=== PATIENT | female | born 1970 | race Caucasian/White ===

== ENCOUNTER → 2020-04-03 13:20 | Outpatient (BNVA) | payer OTHER, SELFPAY | PROVIDERS: PCP Internal Medicine; Visit Provider Obstetrics & Gynecology | DX: N84.0 Polyp of corpus uteri (principal); N92.1 Excessive and frequent menstruation with irregular cycle; Z98.890 Other specified postprocedural states | CPT/HCPCS: Q3014 ==

== ENCOUNTER 2020-08-14 13:12 | Outpatient (REF) | payer OTHER, SELFPAY ==
--- NOTE | ~2020-08-14 | MM_ITS ---
EXAMINATION: MM SCREENING DIGITAL BREAST TOMOSYNTHESIS, BILATERAL CLINICAL INFORMATION: Screening. Asymptomatic. The lifetime risk of breast cancer based on the Tyrer-Cuzick Model is 7%. COMPARISON: Mammography: 08/09/2019, 08/05/2018, 04/19/2017, 02/26/2016 TECHNIQUE: Digital breast tomosynthesis is performed in both the craniocaudal and mediolateral oblique views along with computer-aided detection (CAD). Synthesized 2D images are generated from the tomosynthesis. FINDINGS: There are scattered areas of fibroglandular density (ACR BI-RADS breast composition Category b). There are no significant masses, abnormal calcifications, or other abnormalities. No significant changes from prior studies. MM/MM tomosynthesis screening BI IMPRESSION: No mammographic evidence of malignancy. ASSESSMENT: BI-RADS 1: Negative RECOMMENDATION: Routine annual mammography screening. This patient's information was entered into a reminder system with a target due date for their next mammogram.
== END 2020-08-14 13:13 | disposition home or self-care (01) ==
LOC: HO.MAMMO 13:12
PROVIDERS: Visit Provider Internal Medicine
DX: Z12.31 Encounter for screening mammogram for malignant neoplasm of breast (principal)
CPT/HCPCS: 77063; 77067

== ENCOUNTER 2020-08-19 11:42 | Outpatient (REF) | payer OTHER, SELFPAY ==
[2020-08-19 13:48] LABS: MANUAL DIFF FLAG NO
[2020-08-19 13:55] LABS: Basophils Percent Auto 0.6 % (0-2); Eosinophils Absolute Auto 0.2 X10*3/uL (0.0-0.4); Eosinophils Percent Auto 2.8 % (0-4); Hematocrit 42.4 % (37-47); Hemoglobin 13.9 g/dl (12.0-16.0); Imm Gran Abs Auto 0.02 X10*3/uL (0.00-0.03); Imm Gran Pct Auto 0.3 % (0.0-0.4); Lymphocytes Absolute Auto 1.8 X10*3/uL (1.2-4.9); Lymphocytes Percent Auto 25.9 % (20-40); Mean Corpuscular HGB Conc 32.8 g/dl (31.0-35.0); Mean Corpuscular Hemoglobin 30.6 pg (27.0-33.0); Mean Corpuscular Volume 93.4 fL (80-98); Mean Platelet Volume 10.7 fL (9.4-12.3); Monocytes Absolute Auto 0.4 X10*3/uL (0.1-1.2); Monocytes Percent Auto 5.1 % (2-11); Neutrophils Absolute Auto 4.7 X10*3/uL (2.0-8.3); Neutrophils Percent Auto 65.3 % (45-73); Platelet Count 350 X10*3/uL (160-400); Red Blood Count 4.54 X10*6/uL (4.20-5.50); Red Cell Distribution Width 12.6 % (11.0-16.0); White Blood Count 7.1 X10*3/uL (4.8-10.8)
[2020-08-19 14:57] LABS: Alanine Aminotransferase 35 U/L (0-31); Albumin Level 4.3 g/dL (3.5-5.0); Alkaline Phosphatase 70 U/L (39-117); Anion Gap 13 (12-20); Aspartate Amino Transferase 22 U/L (5-31); Bilirubin Total 0.3 mg/dL (0.0-1.0); Blood Urea Nitrogen 17 mg/dL (9-16); Calcium 9.5 mg/dL (8.4-10.2); Carbon Dioxide 27 mmol/L (22-29); Chloride 108 mmol/L (96-108); Cholesterol 192 mg/dL; Estimated Glomerular Filt Rate > 60; Glucose Random 98 mg/dL (60-115); HDL Cholesterol 49 mg/dL; LDL Cholesterol Calculated 119 mg/dl; Sodium 143 mmol/L (135-145); Total Protein 7.3 g/dL (6.5-8.0); Triglycerides 120 mg/dL
[2020-08-19 15:04] LABS: Free T4 (Free Thyroxine) 1.28 ng/dL (0.71-1.85); Thyroid Stimulating Hormone 0.87 uIU/mL (0.32-4.0); Vitamin D 25-OH Total 27.9 ng/mL (>30)
[2020-08-23 06:42] LABS: Folate 7.3 ng/mL (> or = 4.0); Vitamin B12 456 pg/mL (200-900)
== END 2020-08-19 11:43 | disposition home or self-care (01) ==
LOC: HO.10HDL 11:42
PROVIDERS: Visit Provider Internal Medicine
DX: E78.00 Pure hypercholesterolemia, unspecified (principal); E03.9 Hypothyroidism, unspecified
CPT/HCPCS: 36415; 80053; 80061; 82306; 82607; 82746; 84439; 84443; 85025

== ENCOUNTER 2020-12-25 09:03 | Outpatient (REF) | payer OTHER, SELFPAY ==
[2020-12-25 10:32] LABS: MANUAL DIFF FLAG NO
[2020-12-25 10:41] LABS: Basophils Percent Auto 0.6 % (0-2); Eosinophils Absolute Auto 0.5 X10*3/uL (0.0-0.4); Hematocrit 41.9 % (37-47); Hemoglobin 13.9 g/dl (12.0-16.0); Imm Gran Abs Auto 0.01 X10*3/uL (0.00-0.03); Imm Gran Pct Auto 0.1 % (0.0-0.4); Lymphocytes Absolute Auto 3.2 X10*3/uL (1.2-4.9); Lymphocytes Percent Auto 45.1 % (20-40); Mean Corpuscular HGB Conc 33.2 g/dl (31.0-35.0); Mean Corpuscular Volume 93.3 fL (80-98); Mean Platelet Volume 10.1 fL (9.4-12.3); Monocytes Absolute Auto 0.5 X10*3/uL (0.1-1.2); Monocytes Percent Auto 7.2 % (2-11); Neutrophils Absolute Auto 2.8 X10*3/uL (2.0-8.3); Platelet Count 304 X10*3/uL (160-400); Red Blood Count 4.49 X10*6/uL (4.20-5.50); Red Cell Distribution Width 12.5 % (11.0-16.0); White Blood Count 7.1 X10*3/uL (4.8-10.8)
[2020-12-25 10:57] LABS: Alanine Aminotransferase 34 U/L (0-31); Albumin Level 4.2 g/dL (3.5-5.0); Alkaline Phosphatase 65 U/L (39-117); Anion Gap 12 (12-20); Aspartate Amino Transferase 25 U/L (5-31); Bilirubin Total 0.5 mg/dL (0.0-1.0); Blood Urea Nitrogen 16 mg/dL (9-16); Calcium 9.4 mg/dL (8.4-10.2); Carbon Dioxide 27 mmol/L (22-29); Chloride 109 mmol/L (96-108); Cholesterol 209 mg/dL; Estimated Glomerular Filt Rate > 60; Glucose Fasting 104 mg/dL (60-99); HDL Cholesterol 46 mg/dL; LDL Cholesterol Calculated 145 mg/dl; Potassium 4.8 mmol/L (3.3-5.1); Sodium 143 mmol/L (135-145); Total Protein 6.9 g/dL (6.5-8.0); Triglycerides 93 mg/dL
[2020-12-25 11:22] LABS: TSH reflex Free T4 0.95 uIU/mL (0.32-4.0)
== END 2020-12-25 09:04 | disposition home or self-care (01) ==
LOC: HO.10HDL 09:03
PROVIDERS: Visit Provider Nurse Practitioner Family
DX: E78.00 Pure hypercholesterolemia, unspecified (principal); E03.9 Hypothyroidism, unspecified
CPT/HCPCS: 36415; 80053; 80061; 84443; 85025

== ENCOUNTER 2021-02-14 13:58 | Outpatient (REF) | payer OTHER, SELFPAY ==
--- NOTE | ~2021-02-14 | XR_ITS ---
EXAMINATION: XR ABDOMEN KUB CLINICAL INDICATION: Abdominal pain. COMPARISON: CT abdomen/pelvis dated 05/25/2016. TECHNIQUE: AP views of the abdomen. FINDINGS: Nonobstructive bowel gas pattern. Mild air and stool throughout the colon. Phleboliths within the pelvis. Right upper quadrant and left midabdomen surgical clips are redemonstrated. No acute osseous abnormality. XR/XR KUB IMPRESSION: Unremarkable examination.
[2021-02-14 14:48] LABS: MANUAL DIFF FLAG NO
[2021-02-14 14:51] LABS: Basophils Percent Auto 0.3 % (0-2); Eosinophils Absolute Auto 0.1 X10*3/uL (0.0-0.4); Eosinophils Percent Auto 1.2 % (0-4); Hematocrit 41.2 % (37-47); Hemoglobin 13.8 g/dl (12.0-16.0); Imm Gran Abs Auto 0.03 X10*3/uL (0.00-0.03); Imm Gran Pct Auto 0.3 % (0.0-0.4); Lymphocytes Absolute Auto 2.3 X10*3/uL (1.2-4.9); Lymphocytes Percent Auto 23.6 % (20-40); Mean Corpuscular HGB Conc 33.5 g/dl (31.0-35.0); Mean Corpuscular Hemoglobin 30.7 pg (27.0-33.0); Mean Corpuscular Volume 91.8 fL (80-98); Mean Platelet Volume 9.8 fL (9.4-12.3); Monocytes Absolute Auto 0.4 X10*3/uL (0.1-1.2); Monocytes Percent Auto 4.6 % (2-11); Neutrophils Absolute Auto 6.8 X10*3/uL (2.0-8.3); Platelet Count 336 X10*3/uL (160-400); Red Blood Count 4.49 X10*6/uL (4.20-5.50); Red Cell Distribution Width 12.7 % (11.0-16.0); White Blood Count 9.7 X10*3/uL (4.8-10.8)
[2021-02-14 15:13] LABS: Alanine Aminotransferase 56 U/L (0-31); Albumin Level 4.6 g/dL (3.5-5.0); Alkaline Phosphatase 67 U/L (39-117); Anion Gap 15 (12-20); Aspartate Amino Transferase 34 U/L (5-31); Blood Urea Nitrogen 13 mg/dL (9-16); Calcium 9.9 mg/dL (8.4-10.2); Carbon Dioxide 25 mmol/L (22-29); Chloride 105 mmol/L (96-108); Estimated Glomerular Filt Rate > 60; Glucose Random 89 mg/dL (60-115); Sodium 140 mmol/L (135-145); Total Protein 7.5 g/dL (6.5-8.0)
[2021-02-14 16:00] LABS: Glucose Urine UA NEG (NEG); Leukocyte Esterase Urine NEG (NEG); Nitrite Urine NEG (NEG); Specific Gravity - Urine <= 1.005 (1.005-1.025); Urine Blood NEG (NEG); Urine Ketones 5 MG/DL (NEG); Urine Protein NEG (NEG-TRACE)
[2021-02-14 16:06] LABS: Appearance Urine CLEAR; Color Urine YELLOW
[2021-02-14 19:47] LABS: CDiff Gene PCR NEGATIVE (Negative)
== END 2021-02-14 13:59 | disposition home or self-care (01) ==
LOC: HO.XRAY 13:58
PROVIDERS: PCP Internal Medicine; Visit Provider Family Medicine
DX: Z00.00 Encounter for general adult medical examination without abnormal findings (principal); R10.9 Unspecified abdominal pain; K52.9 Noninfective gastroenteritis and colitis, unspecified
CPT/HCPCS: 36415; 74018; 80053; 81003; 85025; 87045; 87046; 87493

== ENCOUNTER 2021-03-04 09:16 | Emergency (ER) | payer OTHER, SELFPAY ==
--- NOTE | ~2021-03-04 | CT_ITS ---
EXAMINATION: CT ABDOMEN AND PELVIS WITHOUT CONTRAST CLINICAL INFORMATION: Lower abdominal pain COMPARISON: Previous CT of the abdomen and pelvis April 2016 TECHNIQUE: Multidetector volumetric imaging was performed from the superior aspect of the liver through the pubic symphysis. Sagittal and coronal reformatted images were obtained on the technologist's workstation. This CT examination was performed using dose optimization techniques as appropriate, variously including the following: *Automated exposure control *Adjustment of mA and/or kV according to patient size (this includes techniques or standardized protocols for targeted exams where dose is matched to indication/reason for exam; i.e. extremities or head) *Use of iterative reconstruction technique DLP: 620 mGy-cm FINDINGS: LUNG BASES: The visualized lung bases are unremarkable. LIVER, GALLBLADDER, AND BILIARY TREE: The liver is enlarged and low in attenuation suggestive of fatty infiltration. No focal liver lesion is seen. The gallbladder is been removed. There is no biliary duct dilatation. PANCREAS: Unremarkable. SPLEEN: Unremarkable. ADRENAL GLANDS: Unremarkable. KIDNEYS AND URETERS: The kidneys are normal in size, shape, and attenuation. No hydronephrosis, hydroureter, or calculi seen. No perinephric stranding. BLADDER: Unremarkable. GASTROINTESTINAL TRACT: There is diverticulosis of the colon. There is a long segment of wall thickening of the left colon and sigmoid colon. There is stranding of the surrounding fat and small amount of pericholecystic fluid.. Long segment distribution favors colitis over diverticulitis. There is stranding or edema of the bowel mesentery. There is no evidence of obstruction, perforation or abscess. The small and large bowel are otherwise unremarkable. The appendix is unremarkable. The stomach is unremarkable. ABDOMINAL WALL: There are small umbilical and right inguinal hernias containing fat. LYMPH NODES: Normal. VASCULAR: Unremarkable. PELVIC VISCERA: Unremarkable. OSSEOUS STRUCTURES: Unremarkable. CT/CT abdomen pelvis wo con IMPRESSION: Diverticulosis of the colon. Long segment wall thickening of the left colon and sigmoid colon and stranding of the surrounding fat and mesentery more suggestive of colitis than diverticulitis. Enlarged fatty liver.
[2021-03-04 09:31] VITALS: BP 170/83; PULSE 93; RESP 18; TEMP 36.6; O2SAT 99; BMI 34.4
[2021-03-04 09:48] LABS: MANUAL DIFF FLAG NO
[2021-03-04 09:51] LABS: Basophils Percent Auto 0.4 % (0-2); Eosinophils Absolute Auto 0.1 X10*3/uL (0.0-0.4); Hematocrit 38.8 % (37-47); Hemoglobin 13.3 g/dl (12.0-16.0); Imm Gran Abs Auto 0.03 X10*3/uL (0.00-0.03); Imm Gran Pct Auto 0.3 % (0.0-0.4); Lymphocytes Absolute Auto 2.4 X10*3/uL (1.2-4.9); Lymphocytes Percent Auto 23.7 % (20-40); Mean Corpuscular HGB Conc 34.3 g/dl (31.0-35.0); Mean Corpuscular Hemoglobin 31.1 pg (27.0-33.0); Mean Corpuscular Volume 90.9 fL (80-98); Mean Platelet Volume 9.5 fL (9.4-12.3); Monocytes Absolute Auto 0.6 X10*3/uL (0.1-1.2); Neutrophils Percent Auto 68.6 % (45-73); Platelet Count 383 X10*3/uL (160-400); Red Blood Count 4.27 X10*6/uL (4.20-5.50); Red Cell Distribution Width 12.4 % (11.0-16.0); White Blood Count 10.2 X10*3/uL (4.8-10.8)
[2021-03-04 10:09] LABS: Lipase 34 U/L (8-78)
[2021-03-04 10:10] LABS: Alanine Aminotransferase 23 U/L (0-31); Albumin Level 4.3 g/dL (3.5-5.0); Alkaline Phosphatase 64 U/L (39-117); Anion Gap 13 (12-20); Aspartate Amino Transferase 18 U/L (5-31); Bilirubin Direct 0.2 mg/dL (0.0-0.5); Bilirubin Total 0.6 mg/dL (0.0-1.0); Blood Urea Nitrogen 14 mg/dL (9-16); Calcium 9.7 mg/dL (8.4-10.2); Carbon Dioxide 22 mmol/L (22-29); Chloride 110 mmol/L (96-108); Estimated Glomerular Filt Rate > 60; Glucose Random 115 mg/dL (60-115); Potassium 4.6 mmol/L (3.3-5.1); Sodium 140 mmol/L (135-145); Total Protein 7.3 g/dL (6.5-8.0)
--- NOTE | 2021-03-04 10:54 | ED_ITS ---
HPI - Abdominal Pain General Chief Complaint: Abdominal Pain Stated Complaint: abd & back pain Time Seen by Provider: 03/04/21 10:53 Source: patient Mode of arrival: ambulatory Limitations: no limitations History of Present Illness HPI narrative: 50-YEAR-OLD FEMALE CAME IN FOR EVALUATION OF ABDOMINAL PAIN 50-year-old female came in for evaluation of lower abdominal pain started about 4 weeks ago, pain is intermittent comes and goes described as a dull aching pain mostly localized in the lower abdomen and suprapubic area radiates to both lower back area, sometimes associated with nausea but no vomiting or diarrhea, urinary frequency or dysuria. Related Data Home Medications Medication Instructions Recorded Confirmed levothyroxine 112 mcg tablet 100 mcg PO DAILY tab 04/03/20 09/19/20 ascorbate calcium (vitamin C) 500 500 mg PO DAILY 08/19/20 09/19/20 mg tablet cholecalciferol (vitamin D3) 25 25 mcg PO DAILY 08/19/20 09/19/20 mcg (1,000 unit) capsule cyanocobalamin (vitamin B-12) 100 100 mcg PO DAILY 08/19/20 09/19/20 mcg tablet lactobacillus combination no.8 3 3,000 mmu cells PO DAILY 08/19/20 09/19/20 billion cell capsule (Adult Probiotic) Previous Rx's Medication Instructions Recorded hydrocortisone 2.5 % topical cream 1 appl GA BID-QID PRN #30 g 02/07/21 with perineal applicator (Proctosol HC) metronidazole 500 mg tablet 500 mg PO Q12H 10 Days #20 tab 02/14/21 ciprofloxacin HCl 500 mg tablet 500 mg PO BID #14 tab 03/04/21 (Cipro) metronidazole 500 mg tablet 500 mg PO BID #14 tab 03/04/21 (Flagyl) Allergies Allergy/AdvReac Type Severity Reaction Status Date / Time latex Allergy Unknown Hives Verified 02/14/21 12:20 penicillin V Allergy Unknown oral Verified 02/14/21 12:20 swelling Review of Systems Review of Systems All other systems are reviewed and are negative Constitutional: Reports as per HPI and Reports no additional constitutional complaints Eyes: Reports as per HPI and Reports no additional eye complaints Reports system reviewed and no additional complaints, except as documented Cardiovascular: Reports as per HPI and Reports no additional cardiovascular complaints Respiratory: Reports as per HPI and Reports no additional respiratory complaints Gastrointestinal: Reports as per HPI and Reports no additional gastrointestinal complaints Genitourinary: Reports no additional female genitourinary complaints Musculoskeletal: Reports no additional musculoskeletal complaints Skin/Breast: Reports system reviewed and no additional complaints, except as docu Psychiatric: Reports no additional psychiatric complaints Endocrine: Reports no additional endocrine complaints Hematologic/Lymphatic: Reports no additional hematologic/lymphatic complaints Allergic/Immunologic: Reports no additional allergic/immunologic complaints Reports system reviewed and no additional complaints, except as documented and Reports Abnormal speech present Physical Exam Vital Signs: Vital Signs: Last Vital Signs Temp 98 F 03/04/21 09:31 Pulse 88 03/04/21 11:50 Resp 18 03/04/21 11:50 BP 127/71 03/04/21 11:50 Pulse Ox 98 03/04/21 11:50 Body Mass Index 34.4 Vital signs have been reviewed as appeared to be correct. Blood pressure normal. Heart rate normal. Respiration rate normal. Temperature normal. Oxygen saturation normal. Appearance: Alert. Oriented X3. No acute distress. Head: Normal external exam. Normocephalic. Atraumatic. No Merritt signs noted. No raccoon eyes noted Eyes: PERRLA. EOMI. Conjunctiva and sclera normal. Eyelids normal. ENT: TM's Normal. Pharynx normal. Uvula midline. Moist mucous membranes. No trismus noted. No drooling noted. No muffled voice noted. Neck: Normal inspection. Neck supple. FROM. No adenopathy. Thyroid Normal. No meningeal signs. No neck mass noted. CVS: Normal heart rate and rhythm. Heart sound normal. No murmurs noted. Pulses normal throughout. Respiratory: No respiratory distress. Painless inspiration. Breath sounds normal. No wheezes/rales/rhonchi noted. Chest nontender. No accessory muscle usage noted or decreased air movement noted. Abdomen: Soft and nontender. Bowel sounds normal in all 4 quadrants. No distention noted. No organomegaly noted. No visible injury noted. Back: No CVA tenderness. Full range of motion noted. Skin: Skin warm and dry. Normal skin color. Normal skin turgor. No rashes/lesions/lacerations noted. Extremities: No lower extremity edema. Extremities exhibit normal range of motion. Extremities nontender. Neuro: Oriented X 3. Cranial nerve exam: II-XII are grossly intact No motor deficit. No sensory deficit. Reflexes normal. Course Course Course Narrative: Assessment and plan. 50-year-old female came in for abdominal pain, CT of the abdomen pelvis showed colitis. Will start the patient on Cipro and Flagyl for for 10 days and follow-up with GI. Patient keeps saying that her mom had a colon cancer, patient was instructed to follow up with Dr. fam (patient's GI) to consider colonoscopy. MDM - Abdominal Pain Lab Data Attestation: I reviewed the patient's lab results. Result diagrams: 03/04/21 09:45 03/04/21 09:45 Labs: Lab Results 03/04/21 03/04/21 03/04/21 Range/Units 09:45 09:45 09:45 WBC 10.2 (4.8-10.8) X10*3/uL RBC 4.27 (4.20-5.50) X10*6/uL Hgb 13.3 (12.0-16.0) g/dl Hct 38.8 (37-47) % MCV 90.9 (80-98) fL MCH 31.1 (27.0-33.0) pg MCHC 34.3 (31.0-35.0) g/dl RDW 12.4 (11.0-16.0) % Plt Count 383 (160-400) X10*3/uL MPV 9.5 (9.4-12.3) fL Immature Gran % (Auto) 0.3 (0.0-0.4) % Neut % (Auto) 68.6 (45-73) % Lymph % (Auto) 23.7 (20-40) % [place] % (Auto) 6.0 (2-11) % Eos % (Auto) 1.0 (0-4) % Baso % (Auto) 0.4 (0-2) % Lymph # (Auto) 2.4 (1.2-4.9) X10*3/uL [place] # (Auto) 0.6 (0.1-1.2) X10*3/uL Eos # (Auto) 0.1 (0.0-0.4) X10*3/uL Baso # (Auto) 0.0 (0.0-0.2) X10*3/uL Abs Immat Gran (auto) 0.03 (0.00-0.03) X10*3/uL Absolute Neuts (auto) 7.0 (2.0-8.3) X10*3/uL Absolute Nucleated RBC 0.000 (0.0-0.012) X10*3/uL Nucleated RBC % (auto) 0.0 (0.0-0.2) /100WBC Sodium 140 (135-145) mmol/L Potassium 4.6 (3.3-5.1) mmol/L Chloride 110 H (96-108) mmol/L Carbon Dioxide 22 (22-29) mmol/L Anion Gap 13 (12-20) BUN 14 (9-16) mg/dL Creatinine 0.78 (0.5-1.4) mg/dL Estim Creat Clear Calc 84.0 Estimated GFR > 60 Random Glucose 115 (60-115) mg/dL Calcium 9.7 (8.4-10.2) mg/dL Total Bilirubin 0.6 (0.0-1.0) mg/dL Direct Bilirubin 0.2 (0.0-0.5) mg/dL AST 18 D (5-31) U/L ALT 23 (0-31) U/L Alkaline Phosphatase 64 (39-117) U/L Total Protein 7.3 (6.5-8.0) g/dL Albumin 4.3 (3.5-5.0) g/dL Lipase 34 (8-78) U/L Urine Color Urine Appearance Urine pH (5.0-8.0) Ur Specific [place] (1.005-1.025) Urine Protein (NEG-TRACE) MG/DL Urine Glucose (UA) (NEG) MG/DL Urine Ketones (NEG) MG/DL Urine Blood (NEG) Urine Nitrite (NEG) Ur Leukocyte Esterase (NEG) Urine RBC (0) /HPF Urine WBC (0-4) /HPF Ur Squamous Epith Cells /LPF Urine Bacteria /LPF Urine Mucus /LPF Urine Test (NEGATIVE) 03/04/21 03/04/21 Range/Units 11:30 11:30 WBC (4.8-10.8) X10*3/uL RBC (4.20-5.50) X10*6/uL Hgb (12.0-16.0) g/dl Hct (37-47) % MCV (80-98) fL MCH (27.0-33.0) pg MCHC (31.0-35.0) g/dl RDW (11.0-16.0) % Plt Count (160-400) X10*3/uL MPV (9.4-12.3) fL Immature Gran % (Auto) (0.0-0.4) % Neut % (Auto) (45-73) % Lymph % (Auto) (20-40) % [place] % (Auto) (2-11) % Eos % (Auto) (0-4) % Baso % (Auto) (0-2) % Lymph # (Auto) (1.2-4.9) X10*3/uL [place] # (Auto) (0.1-1.2) X10*3/uL Eos # (Auto) (0.0-0.4) X10*3/uL Baso # (Auto) (0.0-0.2) X10*3/uL Abs Immat Gran (auto) (0.00-0.03) X10*3/uL Absolute Neuts (auto) (2.0-8.3) X10*3/uL Absolute Nucleated RBC (0.0-0.012) X10*3/uL Nucleated RBC % (auto) (0.0-0.2) /100WBC Sodium (135-145) mmol/L Potassium (3.3-5.1) mmol/L Chloride (96-108) mmol/L Carbon Dioxide (22-29) mmol/L Anion Gap (12-20) BUN (9-16) mg/dL Creatinine (0.5-1.4) mg/dL Estim Creat Clear Calc Estimated GFR Random Glucose (60-115) mg/dL Calcium (8.4-10.2) mg/dL Total Bilirubin (0.0-1.0) mg/dL Direct Bilirubin (0.0-0.5) mg/dL AST (5-31) U/L ALT (0-31) U/L Alkaline Phosphatase (39-117) U/L Total Protein (6.5-8.0) g/dL Albumin (3.5-5.0) g/dL Lipase (8-78) U/L Urine Color YELLOW Urine Appearance CLEAR Urine pH 6.0 (5.0-8.0) Ur Specific [place] 1.020 (1.005-1.025) Urine Protein NEG (NEG-TRACE) MG/DL Urine Glucose (UA) NEG (NEG) MG/DL Urine Ketones NEG (NEG) MG/DL Urine Blood TRACE (NEG) Urine Nitrite NEG (NEG) Ur Leukocyte Esterase NEG (NEG) Urine RBC 1-4 (0) /HPF Urine WBC 0 (0-4) /HPF Ur Squamous Epith Cells 1+ /LPF Urine Bacteria NONE /LPF Urine Mucus 2+ /LPF Urine Test NEGATIVE (NEGATIVE) Imaging Data CT abdomen been: Radiologist's impression: Diverticulosis of the colon. Long segment wall thickening of the left colon and sigmoid colon and stranding of the surrounding fat and mesentery more suggestive of colitis than diverticulitis. Enlarged fatty liver. Discharge Plan Discharge Clinical Impression: Abdominal pain, Colitis Patient Disposition: Home, Self-Care Instructions: Colitis (ED) Prescriptions: New ciprofloxacin HCl [Cipro] 500 mg tablet 500 mg PO BID Qty: 14 RF: 0 metronidazole [Flagyl] 500 mg tablet 500 mg PO BID Qty: 14 RF: 0 No Action hydrocortisone [Proctosol HC] 2.5 % cream with perineal applicator 1 appl GA BID-QID PRN (Reason: hemorrhoids) Qty: 30 RF: 0 cyanocobalamin (vitamin B-12) 100 mcg tablet 100 mcg PO DAILY RF: 0 cholecalciferol (vitamin D3) 25 mcg (1,000 unit) capsule 25 mcg PO DAILY RF: 0 ascorbate calcium (vitamin C) 500 mg tablet 500 mg PO DAILY RF: 0 Adult Probiotic 3 billion cell capsule 3,000 mmu cells PO DAILY RF: 0 metronidazole 500 mg tablet 500 mg PO Q12H 10 Days Qty: 20 RF: 0 levothyroxine 112 mcg tablet 100 mcg PO DAILY RF: 0 Referrals: Po,Karma Austin MD [Primary Care Provider] - 2 days Walter James [Physician] - 2 days [facility] Past Medical History Medical History Anxiety and depression Chest congestion Chest pain on respiration Cholelithiasis Endometrial polyp Finger dislocation Finger dislocation Finger strain Hypercholesterolemia Hypothyroidism Insomnia Obesity (BMI 30-39.9) Osteoarthritis Vitamin D deficiency Surgical History Hx laparoscopic cholecystectomy Family History Family History Mother Colon cancer Lung cancer Father Medical history unknown Paternal Aunt Breast cancer Daughter No problems noted. Daughter No problems noted. Son No problems noted. Son No problems noted. Son No problems noted. Son No problems noted. Son No problems noted. Social History Social History Alcohol intake: current Alcohol intake frequency: holidays/special occasions only Patient Tobacco Use Status: Former Tobacco user Tobacco use type: Cigarette e-Cigarette/Vaping Use: Never Used Second Hand Smoke Exposure: No Use of substances other than those prescribed or required for medical reasons: No Advance Directives: No Advance Directives Information Provided: No Patient : No service: No Current occupational status: employed Sexual orientation: Straight/Heterosexual Gender identity: Female
--- NOTE | 2021-03-04 11:39 | PC.NURSE ---
PT ALERT AND ORIENTED, SKIN PWD, RESPIRATIONS EVEN AND UNLABORED, PT REPORTS LOWER ABD PAIN THAT RADIATES ALL THE WAY AROUND TO THE BACK, WITH SOME NAUSEA, PT STATES THIS HAS BEEN HAPPENING SINCE FEBRUARY 12, SOMETIMES HAS DIARRHEA/CONSTIPATION
[2021-03-04 11:41] LABS: Appearance Urine CLEAR; Color Urine YELLOW; Glucose Urine UA NEG (NEG); Leukocyte Esterase Urine NEG (NEG); Nitrite Urine NEG (NEG); UACC Culture Trigger NO; Urine Blood TRACE (NEG); Urine Ketones NEG (NEG); Urine Protein NEG (NEG-TRACE)
[2021-03-04 11:50] VITALS: BP 127/71; PULSE 88; RESP 18; O2SAT 98
[2021-03-04 11:51] LABS: Mucus Urine 2+ /LPF; Squamous Epithelial Cell Urine 1+ /LPF; WBC Urine 0 /HPF (0-4)
[2021-03-04 11:59] LABS: UPreg QC Valid YES; Urine Pregnancy NEGATIVE (NEGATIVE)
[2021-03-04] MEDS: Ondansetron ODT 4 MG TAB.RAPDIS TRANSLINGU (12:16)
== END 2021-03-04 13:14 | disposition home or self-care (01) ==
PROVIDERS: Emergency Provider Emergency Medicine; PCP Internal Medicine
DX: K52.9 Noninfective gastroenteritis and colitis, unspecified (principal); R10.9 Unspecified abdominal pain
CPT/HCPCS: 36415; 74176; 80048; 80076; 81001; 81025; 83690; 85025; 99284

== ENCOUNTER 2021-03-12 17:17 | Outpatient (REF) | payer OTHER, SELFPAY ==
[2021-03-12 17:59] LABS: MANUAL DIFF FLAG NO
[2021-03-12 18:06] LABS: Basophils Absolute Auto 0.1 X10*3/uL (0.0-0.2); Basophils Percent Auto 0.6 % (0-2); Eosinophils Absolute Auto 0.2 X10*3/uL (0.0-0.4); Eosinophils Percent Auto 2.5 % (0-4); Hematocrit 39.9 % (37-47); Hemoglobin 13.4 g/dl (12.0-16.0); Imm Gran Abs Auto 0.04 X10*3/uL (0.00-0.03); Imm Gran Pct Auto 0.4 % (0.0-0.4); Lymphocytes Absolute Auto 3.3 X10*3/uL (1.2-4.9); Lymphocytes Percent Auto 34.2 % (20-40); Mean Corpuscular HGB Conc 33.6 g/dl (31.0-35.0); Mean Corpuscular Hemoglobin 30.9 pg (27.0-33.0); Mean Corpuscular Volume 92.1 fL (80-98); Mean Platelet Volume 9.8 fL (9.4-12.3); Monocytes Absolute Auto 0.6 X10*3/uL (0.1-1.2); Neutrophils Absolute Auto 5.4 X10*3/uL (2.0-8.3); Neutrophils Percent Auto 56.3 % (45-73); Platelet Count 477 X10*3/uL (160-400); Red Blood Count 4.33 X10*6/uL (4.20-5.50); Red Cell Distribution Width 12.3 % (11.0-16.0); White Blood Count 9.6 X10*3/uL (4.8-10.8)
[2021-03-12 18:24] LABS: C Reactive Protein 1.91 mg/dL (< or = 0.50)
[2021-03-12 18:53] LABS: Erythrocyte Sedimentation Rate 60 MM/HR (0-20)
== END 2021-03-12 17:18 | disposition home or self-care (01) ==
LOC: HO.LAB 17:17
PROVIDERS: PCP Internal Medicine; Visit Provider Internal Medicine
DX: R19.7 Diarrhea, unspecified (principal)
CPT/HCPCS: 36415; 85025; 85652; 86140

== ENCOUNTER 2021-03-14 11:27 | Day surgery (SDC) | payer OTHER, SELFPAY ==
[2021-03-14 12:13] VITALS: BP 126/77; PULSE 85; RESP 16; TEMP 36.6; O2SAT 97; BMI 33.6
--- NOTE | 2021-03-14 12:49 | HO.ANESPROP2 ---
[facility] Active Problems Active Problems: All Active Problems (Updated 03/04/21 @ 12:57 by Keron Gordillo MD) Metrorrhagia (Acute) Annual physical exam (Acute) Gall bladder stones (Acute) Impaired fasting blood sugar (Acute) Constipation (Acute) Hemorrhoid (Acute) Abdominal pain (Acute) Colitis (Acute) Finger dislocation (Acute) Finger dislocation (Acute) Chest congestion (Acute) Chest pain on respiration (Acute) Finger strain (Acute) Anxiety and depression (Acute) Hypercholesterolemia (Acute) Obesity (BMI 30-39.9) (Acute) Hypothyroidism (Acute) Past Medical History Medical History (Updated 03/04/21 @ 12:57 by Keron Gordillo MD) Anxiety and depression Chest congestion Chest pain on respiration Cholelithiasis Endometrial polyp Finger dislocation Finger dislocation Finger strain Hypercholesterolemia Hypothyroidism Insomnia Obesity (BMI 30-39.9) Osteoarthritis Vitamin D deficiency Family History Family History Mother Colon cancer Lung cancer Father Medical history unknown Paternal Aunt Breast cancer Daughter No problems noted. Daughter No problems noted. Son No problems noted. Son No problems noted. Son No problems noted. Son No problems noted. Son No problems noted. Family history of problems with anesthesia: No Surgical History Surgical History (Updated 03/13/21 @ 09:25 by Stephani Vargas RN) History of ERCP Hx laparoscopic cholecystectomy Hx of colonoscopy History of Problems with Anesthesia: No Social History Social History Alcohol intake: current Alcohol intake frequency: holidays/special occasions only Patient Tobacco Use Status: Former Tobacco user Tobacco use type: Cigarette e-Cigarette/Vaping Use: Never Used Second Hand Smoke Exposure: No Use of substances other than those prescribed or required for medical reasons: Yes Substance Use Type Other:: gummies Substance Use Frequency: Occasionally Are you DNR?: No Advance Directives: No Advance Directives Information Provided: Yes service: No Current occupational status: employed Sexual orientation: Straight/Heterosexual Gender identity: Female Meds Allergies Allergy/AdvReac Type Severity Reaction Status Date / Time latex Allergy Unknown Hives Verified 02/14/21 12:20 penicillin V Allergy Unknown oral Verified 02/14/21 12:20 swelling Active Medications: Current Medications Sodium Biphosphate/Sodium Phosphate (Sodium Phosphate,Will-Dibasic 133 Ml Enema) 133 ml IN ONCE PRN PRN Reason: Poor Colonoscopy Prep Results Home Medications Medication Instructions Recorded Confirmed Last Taken Type ascorbate calcium (vitamin C) 500 500 mg PO DAILY 08/19/20 09/19/20 Unknown History mg tablet cholecalciferol (vitamin D3) 25 25 mcg PO DAILY 08/19/20 09/19/20 Unknown History mcg (1,000 unit) capsule cyanocobalamin (vitamin B-12) 100 100 mcg PO DAILY 08/19/20 09/19/20 Unknown History mcg tablet lactobacillus combination no.8 3 3,000 mmu cells PO DAILY 08/19/20 09/19/20 Unknown History billion cell capsule (Adult Probiotic) Exam Exam Date and Time: March 14, 2021 1249 Height,Weight and Vital Signs: Height 5 ft 0.5 in Weight 79.379 kg Last Vital Signs Temp 97.8 F 03/14/21 12:13 Pulse 85 03/14/21 12:13 Resp 16 03/14/21 12:13 BP 126/77 03/14/21 12:13 Pulse Ox 97 03/14/21 12:13 Airway Mallampati Class: II TM Dist: >3cm Neck ROM: Full Heart: rrr Lungs: cta Assessment and Plan Assessment Anesthesia Assessment: Anesthesia Plan Discussed and Chart Reviewed Final Anesthetic Review Family History of Problems with Anesthesia: No History of Problems with Anesthesia: No NPO: Yes ASA Class: II Final Preanesthetic Review: No Changes in Pt Med Stat, Meds/Allgs Chart Reviewed and Consent Obtained/Reviewed Patient Risk: Intermediate Procedure Risk: Intermediate Anesthetic Plan Anesthetic Plan: MAC: Disposition: Standard PACU
[2021-03-14] MEDS: Lactated Ringers 1,000 ML 50 ML IVCONT (12:56)
[2021-03-14 14:03] VITALS: BP 135/76; PULSE 81; RESP 16; TEMP 36.2; O2SAT 97
[2021-03-14 14:18] VITALS: BP 140/58; PULSE 75; RESP 16; TEMP 36.2; O2SAT 97
--- NOTE | 2021-03-14 14:21 | PM.OP ---
Brief Operative Note Date of Service: 03/14/21 Pre-op diagnosis: Diarrhea, abnormal CT of colon, R/O colitis Post-op diagnosis: other (Same, incomplete colonoscopy to 20cm) Procedure: Colonoscopy to 20cm with rectal biopsies Surgeon: Walter James Anesthesia: MAC Was an [facility] used for this Procedure?: No Estimated blood loss (mL): 10.0 Pathology: other (A. Rectal biopsies) Condition: stable Disposition: PACU
[2021-03-14 14:32] VITALS: BP 125/67; PULSE 81; RESP 16; TEMP 36.2; O2SAT 98
--- NOTE | 2021-03-14 18:30 | OP_ITS ---
SURGEON: Walter James MD INDICATIONS: The patient presents for evaluation of diarrhea, abnormal CT scan of colon, and left-sided abdominal discomfort. Full consent has been obtained from her for this, including risks of bleeding and perforation. PREOPERATIVE DIAGNOSIS: POSTOPERATIVE DIAGNOSIS: PROCEDURE PERFORMED: Colonoscopy to 20 cm with biopsy. ESTIMATED BLOOD LOSS: COMPLICATIONS: ANESTHESIA: Monitored anesthesia care. ASSISTANTS: SPECIMENS: PREOPERATIVE DIAGNOSES: Diarrhea, abnormal CT scan of colon, rule out colitis. POSTOPERATIVE DIAGNOSES: Diarrhea, abnormal CT scan of colon, rule out colitis, incomplete exam to 20 cm with inability to get good visualization of the sigmoid colon. Poor anal sphincter tone with some hemorrhoids. DESCRIPTION OF PROCEDURE: The patient was placed in the left lateral decubitus position. The digital rectal exam revealed poor sphincter tone with some external hemorrhoids. The Olympus video pediatric colonoscope was entered into the rectum and advanced to 20 cm. The rectal and very distal sigmoid colon did appear to be congested, but the overlying mucosa appeared normal. It appeared edematous and somewhat friable. I was unable to get past 20 cm, although at times, I was briefly able to visualize the lumen with some liquid stool coming from it. There was no mass nor ulceration. Advancement of the scope trying to get past 20 cm led to some looping of the scope. Therefore, attempts at getting past this area and into the sigmoid colon were unsuccessful. In the rectum, the scope was retroflexed visualizing some internal hemorrhoids. The scope was straightened. Biopsies were obtained from the rectal mucosa, although again that appeared to be fairly normal other than some edema and some friability. Again, her sphincter tone was quite lax. There was some bleeding initially from the perianal area, but this subsequently stopped. The scope was withdrawn from the patient. She tolerated the procedure well and was returned to recovery area in stable condition. IMPRESSION: 1. Incomplete colonoscopy to 20 cm. 2. Internal and external hemorrhoids. 3. Poor rectal sphincter tone. PLAN: Given her symptomatology, the CT scan findings of a long segment of what appeared to be inflamed colon on the left side, a sedimentation rate of 60, elevated C-reactive protein of 1.9, and a normal CBC but with a platelet count of 477,000, I do suspect this reflects some underlying active inflammatory bowel disease given that she has now had the symptoms for well over 1 month and stool specimens were negative for C&S and C. diff.. Since things are so active from a symptomatic standpoint, I shall empirically place her on a course of prednisone 40mg QD with a 5 mg per week tapering regimen. I'm aware that this is not ideal since we have not made a definitive diagnosis by endoscopic visualization or biopsy. However, at this point given her symptoms and the clinical history, I think it would be reasonable to do that and then possibly try to have her undergo a repeat colonoscopy when perhaps the inflammatory process has diminished on the steroids and that would allow advancement of the scope. I shall hold off on putting her on mesalamine for the time being. She has been advised to call or go to the ER if she develops any increasing pain, bleeding, or other symptoms such as fever or vomiting. This has all been discussed with the patient and her in detail. I will plan to see her again within 1 or 2 weeks to see how she is doing and then possibly reschedule a colonoscopy at that point if we think we would have better success. MD AMARI Rodriguez/EVA / [id number]
== END 2021-03-14 15:12 | disposition home or self-care (01) ==
PROVIDERS: PCP Internal Medicine; Visit Provider Internal Medicine
PROC: 0DJD8ZZ Inspection of Lower Intestinal Tract, Via Natural or Artificial Opening Endoscopic (ICD-10-PCS; CPT 45378; principal; 2021-03-14 12:30)
DX: R10.9 Unspecified abdominal pain (principal); R19.7 Diarrhea, unspecified; K62.89 Other specified diseases of anus and rectum; K64.4 Residual hemorrhoidal skin tags; L64.8 Other androgenic alopecia; E03.9 Hypothyroidism, unspecified; Z79.899 Other long term (current) drug therapy; Z88.0 Allergy status to penicillin; Z91.040 Latex allergy status; Z90.49 Acquired absence of other specified parts of digestive tract; Z87.891 Personal history of nicotine dependence
CPT/HCPCS: 45331; 88305

== ENCOUNTER 2021-03-18 11:07 | Inpatient (IN) | payer OTHER, SELFPAY ==
--- NOTE | ~2021-03-18 | XR_ITS ---
EXAMINATION: XR ABDOMEN KUB CLINICAL INDICATION: Abdominal pain COMPARISON: None TECHNIQUE: AP view of the abdomen. FINDINGS: Moderate volume of stool in the colon with most of the stool in the right colon. Very little stool in the left colon. No abnormally dilated bowel loop. Nonobstructive bowel pattern. Surgical clips right upper quadrant of abdomen. No radiopaque urinary calculus. There are calcified phleboliths in the lower right pelvis. XR/XR KUB IMPRESSION: No acute abnormality.
--- NOTE | ~2021-03-18 | CT_ITS ---
EXAMINATION: CT ABDOMEN AND PELVIS WITH CONTRAST CLINICAL INFORMATION: Diffuse abdominal pain and rectal bleeding. Recent colonoscopy. COMPARISON: Previous CT of the abdomen and pelvis 03/04/2021 TECHNIQUE: Multidetector volumetric images were obtained from the superior aspect of the liver through the pubic symphysis following administration 85 mL of Omnipaque 350 intravenous contrast. Sagittal and coronal reformatted images were obtained on the technologist's workstation. Oral contrast: Yes This CT examination was performed using dose optimization techniques as appropriate, variously including the following: *Automated exposure control *Adjustment of mA and/or kV according to patient size (this includes techniques or standardized protocols for targeted exams where dose is matched to indication/reason for exam; i.e. extremities or head) *Use of iterative reconstruction technique DLP: 671 mGy-cm FINDINGS: LUNG BASES: The visualized lung bases are unremarkable. LIVER, GALLBLADDER, AND BILIARY TREE: The liver is low in attenuation suggestive of fatty infiltration. Liver is otherwise unremarkable. The gallbladder is been removed. There is no biliary duct dilatation. PANCREAS: Unremarkable. SPLEEN: Unremarkable. ADRENAL GLANDS: Unremarkable. KIDNEYS AND URETERS: The kidneys are normal in size, shape, and attenuation. No hydronephrosis, hydroureter, or calculi seen. No perinephric stranding. BLADDER: Unremarkable. GASTROINTESTINAL TRACT: There is diverticulosis of the colon. There is marked wall thickening and edema of the left colon and sigmoid colon. There is stranding of the surrounding fat. Long segment distribution is suggestive of colitis than diverticulitis. No evidence of obstruction, perforation or abscess is seen. The appendix is normal. The stomach is normal. ABDOMINAL WALL: There is a small right inguinal hernia containing fat. There is an umbilical hernia containing fat. LYMPH NODES: Normal. VASCULAR: Unremarkable. PELVIC VISCERA: Unremarkable. OSSEOUS STRUCTURES: Unremarkable. CT/CT abdomen pelvis w con IMPRESSION: Severe colitis of the distal colon. This does not appear appreciably changed from 03/04/2021 exam.
[2021-03-18 11:16] VITALS: BP 155/74; PULSE 90; RESP 18; TEMP 36.8; O2SAT 98; BMI 33.0
[2021-03-18 12:05] LABS: Hematocrit 38.9 % (37-47); Hemoglobin 13.3 g/dl (12.0-16.0); Mean Corpuscular HGB Conc 34.2 g/dl (31.0-35.0); Mean Corpuscular Hemoglobin 30.9 pg (27.0-33.0); Mean Corpuscular Volume 90.5 fL (80-98); Mean Platelet Volume 9.4 fL (9.4-12.3); Platelet Count 507 X10*3/uL (160-400); Red Cell Distribution Width 12.1 % (11.0-16.0); White Blood Count 17.9 X10*3/uL (4.8-10.8)
[2021-03-18 12:19] LABS: Anion Gap 14 (12-20); Blood Urea Nitrogen 18 mg/dL (9-16); Calcium 9.7 mg/dL (8.4-10.2); Carbon Dioxide 24 mmol/L (22-29); Chloride 106 mmol/L (96-108); Creatinine Clr Calc Pharmacy 75.6; Estimated Glomerular Filt Rate > 60; Glucose Random 111 mg/dL (60-115); Sodium 140 mmol/L (135-145)
--- NOTE | 2021-03-18 12:37 | ED.ABDPAIN ---
HPI - Abdominal Pain General Chief Complaint: Abdominal Pain Stated Complaint: abd pain Time Seen by Provider: 03/18/21 12:14 History of Present Illness HPI narrative: 51-year-old female with a past medical history of anxiety, depression, cholelithiasis, hyperlipidemia, hypothyroid, insomnia, vitamin-D deficiency, s/p recent Dx of colitis on 03/04 in our ED & colonoscopy performed on Wednesday 03/14 currently on prednisone outpatient, presenting to the ED complaining of diffuse generalized abdominal pain/bloating, nausea, and 1st BM since colonoscopy today. Reports 1 pink tinged BM. Denies fever, chills, vomiting, diarrhea, dysuria/hematuria, melena MD elicited complaint: abdominal pain Related Data Home Medications Medication Instructions Recorded Confirmed ascorbate calcium (vitamin C) 500 500 mg PO DAILY 08/19/20 09/19/20 mg tablet cholecalciferol (vitamin D3) 25 25 mcg PO DAILY 08/19/20 09/19/20 mcg (1,000 unit) capsule cyanocobalamin (vitamin B-12) 100 100 mcg PO DAILY 08/19/20 09/19/20 mcg tablet lactobacillus combination no.8 3 3,000 mmu cells PO DAILY 08/19/20 09/19/20 billion cell capsule (Adult Probiotic) Previous Rx's Medication Instructions Recorded hydrocortisone 2.5 % topical cream 1 appl MT BID-QID PRN #30 g 02/07/21 with perineal applicator (Proctosol HC) levothyroxine 100 mcg tablet 100 mcg PO DAILY 90 Days #90 tab 03/12/21 Allergies Allergy/AdvReac Type Severity Reaction Status Date / Time latex Allergy Unknown Hives Verified 02/14/21 12:20 penicillin V Allergy Unknown oral Verified 02/14/21 12:20 swelling Review of Systems Review of Systems Constitutional: No Fever, No Chills, No Fatigue, No Malaise ENT/Mouth: No Hearing loss, No Ear Pain, No Hoarseness, No sore throat Eyes: No Eye Pain, No Swelling, No Discharge, No Vision Changes Cardiovascular: No Chest Pain, No SOB, No Edema, No Palpitations Respiratory: No Cough, No Dyspnea Gastrointestinal: + Nausea, No Vomiting, No Diarrhea, No Constipation, + Abdominal pain, + pink tinged BM, No Melena Genitourinary: No Dysuria, No Urinary Frequency, No Hematuria,No Urgency, No Flank Pain Musculoskeletal: No joint pain, No Myalgias, No Joint Swelling Skin: No Skin Lesions, No rash Neuro: No Weakness, No Numbness, No Dizziness, No Headache Yes all other systems are reviewed and are negative Physical Exam Vital Signs: Vital Signs: Last Vital Signs Temp 98.3 F 03/18/21 11:16 Pulse 71 03/18/21 15:32 Resp 18 03/18/21 15:32 BP 128/71 03/18/21 15:32 Pulse Ox 98 03/18/21 15:32 Body Mass Index 33.0 Const: Other: Appears in pain General: cooperative, healthy appearing and no acute distress Orientation/consciousness: patient oriented x3 Limitations: no limitations HENMT: Head: Yes normal to inspection Ears: hearing grossly normal bilaterally General nose exam: Normal external nose present Face and sinus: Yes normal facial exam Eyes: General: appearance normal, both eyes and all related structures EOM: EOMs intact bilaterally Neck: Neck: Yes normal visual inspection Resp: Effort & Inspection: normal respiratory effort and no respiratory distress Cardio: Rate: regular rate Heart sounds: S1 normal heart sound present and S2 normal heart sound present GI: Other: Mildly bloated. Diffusely tender, no rebound or guarding Inspection: Yes normal to inspection Palpation (GI): Soft to palpation, Tenderness to palpation present (GI), no guarding and not rigid : Other: External hemorrhoid noted on rectal General: Yes no CVA tenderness Back/Spine/Pelvis: Back: no CVA tenderness Skin: Rashes: no rashes Wounds: no wounds Neuro: General: patient oriented x3 Gait exam (Neuro): Normal gait present Extrem: General: Yes normal to inspection Course Course Course Narrative: -1243--noted leukocytosis of 17.9 likely from prednisone use rather than severe sepsis. -1507--labs otherwise unremarkable. Lactic acid negative. UA negative. Occult stool is positive. CT abdomen pelvis w con IMPRESSION: Severe colitis of the distal colon. This does not appear appreciably changed from 03/04/2021 exam. -case discussed with Dr. Ramos, recommended IV steroids/pain control if patient needs admission, or continue p.o. steroids if patient comfortable/tolerates p.o. does not recommend antibiotics at this time > patient does not feel comfortable with discharge, plan is for admission MDM - Abdominal Pain MDM Narrative Medical decision making narrative: 51-year-old female with a past medical history of anxiety, depression, cholelithiasis, hyperlipidemia, hypothyroid, insomnia, vitamin-D deficiency, s/p recent Dx of colitis on 03/04 in our ED & colonoscopy performed on Wednesday 03/14 currently on prednisone outpatient, presenting to the ED complaining of diffuse generalized abdominal pain/bloating, nausea, and 1st BM since colonoscopy today. On exam VSS, NAD, physical exam as above abdomen soft diffusely tender with mild bloating, no rebound or guarding. Concern for continue colitis vs diverticulitis vs colonoscopy complication vs ? Appendicitis or other infectious etiology. Low concern for cholecystitis/cholelithiasis or pancreatitis Plan: Labs, UA, CT AP, IVF, symptomatic treatment, reassess, occult stool Medical Records Attestation: I reviewed the patient's medical records. Lab Data Attestation: I reviewed the patient's lab results. Result diagrams: 03/18/21 11:56 03/18/21 11:56 Labs: Lab Results 03/18/21 03/18/21 03/18/21 Range/Units 11:56 11:56 12:48 WBC 17.9 H (4.8-10.8) X10*3/uL RBC 4.30 (4.20-5.50) X10*6/uL Hgb 13.3 (12.0-16.0) g/dl Hct 38.9 (37-47) % MCV 90.5 (80-98) fL MCH 30.9 (27.0-33.0) pg MCHC 34.2 (31.0-35.0) g/dl RDW 12.1 (11.0-16.0) % Plt Count 507 H (160-400) X10*3/uL MPV 9.4 (9.4-12.3) fL Absolute Nucleated RBC 0.000 (0.0-0.012) X10*3/uL Nucleated RBC % (auto) 0.0 (0.0-0.2) /100WBC Sodium 140 (135-145) mmol/L Potassium 4.0 (3.3-5.1) mmol/L Chloride 106 (96-108) mmol/L Carbon Dioxide 24 (22-29) mmol/L Anion Gap 14 (12-20) BUN 18 H (9-16) mg/dL Creatinine 0.84 (0.5-1.4) mg/dL Estim Creat Clear Calc 75.6 Estimated GFR > 60 Random Glucose 111 (60-115) mg/dL Lactic Acid 1.6 (0.5-2.0) mmol/L Calcium 9.7 (8.4-10.2) mg/dL Magnesium 2.0 (1.6-2.6) mg/dL Total Bilirubin 0.6 (0.0-1.0) mg/dL Direct Bilirubin 0.2 (0.0-0.5) mg/dL AST 21 (5-31) U/L ALT 23 (0-31) U/L Alkaline Phosphatase 53 (39-117) U/L Total Protein 7.0 (6.5-8.0) g/dL Albumin 4.2 (3.5-5.0) g/dL Lipase 31 (8-78) U/L Urine Color Urine Appearance Urine pH (5.0-8.0) Ur Specific [place] (1.005-1.025) Urine Protein (NEG-TRACE) MG/DL Urine Glucose (UA) (NEG) MG/DL Urine Ketones (NEG) MG/DL Urine Blood (NEG) Urine Nitrite (NEG) Ur Leukocyte Esterase (NEG) Stool Occult Blood (NEGATIVE) 03/18/21 03/18/21 Range/Units 12:48 14:23 WBC (4.8-10.8) X10*3/uL RBC (4.20-5.50) X10*6/uL Hgb (12.0-16.0) g/dl Hct (37-47) % MCV (80-98) fL MCH (27.0-33.0) pg MCHC (31.0-35.0) g/dl RDW (11.0-16.0) % Plt Count (160-400) X10*3/uL MPV (9.4-12.3) fL Absolute Nucleated RBC (0.0-0.012) X10*3/uL Nucleated RBC % (auto) (0.0-0.2) /100WBC Sodium (135-145) mmol/L Potassium (3.3-5.1) mmol/L Chloride (96-108) mmol/L Carbon Dioxide (22-29) mmol/L Anion Gap (12-20) BUN (9-16) mg/dL Creatinine (0.5-1.4) mg/dL Estim Creat Clear Calc Estimated GFR Random Glucose (60-115) mg/dL Lactic Acid (0.5-2.0) mmol/L Calcium (8.4-10.2) mg/dL Magnesium (1.6-2.6) mg/dL Total Bilirubin (0.0-1.0) mg/dL Direct Bilirubin (0.0-0.5) mg/dL AST (5-31) U/L ALT (0-31) U/L Alkaline Phosphatase (39-117) U/L Total Protein (6.5-8.0) g/dL Albumin (3.5-5.0) g/dL Lipase (8-78) U/L Urine Color YELLOW Urine Appearance CLEAR Urine pH 6.5 (5.0-8.0) Ur Specific Good[place] <= 1.005 (1.005-1.025) Urine Protein NEG (NEG-TRACE) MG/DL Urine Glucose (UA) NEG (NEG) MG/DL Urine Ketones NEG (NEG) MG/DL Urine Blood NEG (NEG) Urine Nitrite NEG (NEG) Ur Leukocyte Esterase NEG (NEG) Stool Occult Blood POSITIVE (NEGATIVE) Discharge Plan Discharge Clinical Impression: Colitis Patient Disposition: Admitted As Inpatient Prescriptions: No Action levothyroxine 100 mcg tablet 100 mcg PO DAILY 90 Days Qty: 90 RF: 0 hydrocortisone [Proctosol HC] 2.5 % cream with perineal applicator 1 appl MT BID-QID PRN (Reason: hemorrhoids) Qty: 30 RF: 0 cyanocobalamin (vitamin B-12) 100 mcg tablet 100 mcg PO DAILY RF: 0 cholecalciferol (vitamin D3) 25 mcg (1,000 unit) capsule 25 mcg PO DAILY RF: 0 ascorbate calcium (vitamin C) 500 mg tablet 500 mg PO DAILY RF: 0 Adult Probiotic 3 billion cell capsule 3,000 mmu cells PO DAILY RF: 0 PMFSH Past Medical History Attestation statement: The following information was validated with the patient. Medical History (Updated 03/18/21 @ 17:30 by SHO Delgado) Anxiety and depression Chest congestion Chest pain on respiration Cholelithiasis Endometrial polyp Finger dislocation Finger dislocation Finger strain Hypercholesterolemia Hypothyroidism Insomnia Obesity (BMI 30-39.9) Osteoarthritis Vitamin D deficiency Surgical History History of ERCP Hx laparoscopic cholecystectomy Hx of colonoscopy Family History Family History Mother Colon cancer Lung cancer Father Medical history unknown Paternal Aunt Breast cancer Daughter No problems noted. Daughter No problems noted. Son No problems noted. Son No problems noted. Son No problems noted. Son No problems noted. Son No problems noted. Social History Social History Alcohol intake: unknown Patient Tobacco Use Status: Former Tobacco user Tobacco use type: Cigarette e-Cigarette/Vaping Use: Never Used Second Hand Smoke Exposure: No Advance Directives: No Patient : No service: No Current occupational status: employed Sexual orientation: Straight/Heterosexual Gender identity: Female
[2021-03-18] MEDS: 0.9 % Sodium Chloride 1,000 ML 999 ML IVCONT (12:50)
[2021-03-18 12:54] LABS: Alanine Aminotransferase 23 U/L (0-31); Albumin Level 4.2 g/dL (3.5-5.0); Alkaline Phosphatase 53 U/L (39-117); Aspartate Amino Transferase 21 U/L (5-31); Bilirubin Direct 0.2 mg/dL (0.0-0.5); Bilirubin Total 0.6 mg/dL (0.0-1.0); Lipase 31 U/L (8-78)
[2021-03-18] MEDS: ondansetron HCL 4 MG/2 ML VIAL IVPUSH (12:55)
[2021-03-18 12:57] VITALS: BP 138/78; PULSE 68; RESP 18; O2SAT 98
[2021-03-18] MEDS: Morphine Sulfate 2 MG/ML CARTRIDGE IVPUSH ×2 (12:57→17:31)
[2021-03-18 13:02] LABS: OBS Int Ctl Valid YES; OBS1 POSITIVE (NEGATIVE)
[2021-03-18 13:07] LABS: Lactic Acid 1.6 mmol/L (0.5-2.0)
[2021-03-18] MEDS: iohexoL 350 MG/ML 100 ML INFUS..BTL IV (14:05)
[2021-03-18 14:29] LABS: Appearance Urine CLEAR; Color Urine YELLOW; Glucose Urine UA NEG (NEG); Leukocyte Esterase Urine NEG (NEG); Nitrite Urine NEG (NEG); PH 6.5 (5.0-8.0); Specific Gravity - Urine <= 1.005 (1.005-1.025); Urine Blood NEG (NEG); Urine Ketones NEG (NEG); Urine Protein NEG (NEG-TRACE)
[2021-03-18 15:32] VITALS: BP 128/71; PULSE 71; RESP 18; O2SAT 98
--- NOTE | 2021-03-18 17:50 | PM.IMHP ---
History of Present Illness Date of Service: 03/18/21 Attending physician on admission: Krystal Pereyra Chief Complaint: nausea , abdominal pain 51-year-old female with past medical history of anxiety, depression, choledocholithiasis, hyperlipidemia, hypothyroidism, insomnia-came to the hospital because of persistent abdominal pain, also nausea and unable to take p.o. due to pain. Patient had recent colitis started in January and was given antibiotic x2 since then and also received steroids but pain did not improve much and now having nausea difficulty tolerating food : So being admitted for possible IBD flare. 03/04 in our ED & colonoscopy performed on Wednesday 03/14 currently on prednisone outpatient. she presenting as above to the ED complaining of diffuse generalized abdominal pain/bloating, nausea, and 1st BM since colonoscopy today.? Reports 1 pink tinged BM.? Denies fever, chills, vomiting, diarrhea, dysuria/hematuria, melena or sob or cough. Review of Systems Review of Systems: as above. Yes all other systems are reviewed and are negative [facility] Medical History Anxiety and depression Chest congestion Chest pain on respiration Cholelithiasis Endometrial polyp Finger dislocation Finger dislocation Finger strain Hypercholesterolemia Hypothyroidism Insomnia Obesity (BMI 30-39.9) Osteoarthritis Vitamin D deficiency Family History Mother Colon cancer Lung cancer Father Medical history unknown Paternal Aunt Breast cancer Daughter No problems noted. Daughter No problems noted. Son No problems noted. Son No problems noted. Son No problems noted. Son No problems noted. Son No problems noted. Pertinent family history: History mother has colon cancer , patient says that she gets colonoscopy every 5 years. Surgical History History of ERCP Hx laparoscopic cholecystectomy Hx of colonoscopy Social History Alcohol intake: unknown Patient Tobacco Use Status: Former Tobacco user Tobacco use type: Cigarette e-Cigarette/Vaping Use: Never Used Second Hand Smoke Exposure: No Advance Directives: No Patient : No service: No Current occupational status: employed Sexual orientation: Straight/Heterosexual Gender identity: Female Meds Allergies Allergy/AdvReac Type Severity Reaction Status Date / Time latex Allergy Unknown Hives Verified 02/14/21 12:20 penicillin V Allergy Unknown oral Verified 02/14/21 12:20 swelling Active Medications: Current Medications Enoxaparin Sodium (Enoxaparin Sodium 40 Mg/0.4 Ml Syringe) 40 mg SUBCUT Q8H [facility] Methylprednisolone Sodium Succinate (Methylprednisolone Sod Succ 40 Mg/Ml Vial) 20 mg IVPUSH Q8H [place] Ondansetron HCl (Ondansetron Hcl 4 Mg/2 Ml Vial) 4 mg IVPUSH Q8H PRN PRN Reason: Nausea Pantoprazole Sodium (Pantoprazole Sodium 40 Mg/10 Ml Vial) 40 mg IVPUSH DAILY [facility] Home Medications Medication Instructions Recorded Confirmed Last Taken Type ascorbate calcium (vitamin C) 500 500 mg PO DAILY 08/19/20 09/19/20 Unknown History mg tablet cholecalciferol (vitamin D3) 25 25 mcg PO DAILY 08/19/20 09/19/20 Unknown History mcg (1,000 unit) capsule cyanocobalamin (vitamin B-12) 100 100 mcg PO DAILY 08/19/20 09/19/20 Unknown History mcg tablet lactobacillus combination no.8 3 3,000 mmu cells PO DAILY 08/19/20 09/19/20 Unknown History billion cell capsule (Adult Probiotic) Physical Exam Vital Signs and Narrative: Vital Signs: Last Vital Signs Temp 98.3 F 03/18/21 11:16 Pulse 71 03/18/21 15:32 Resp 18 03/18/21 15:32 BP 128/71 03/18/21 15:32 Pulse Ox 98 03/18/21 15:32 Body Mass Index 33.0 Physical exam: Appearance: Alert.? Oriented X3.? not in distress.? Eyes: Pupils equal, round and reactive to light.? Sclera nonicteric.? ENT: Pharynx normal.? Moist mucous membranes. cvs: rrr, [id number] , no murmur res: clear to auscultation ,no rhonchii or wheezing abd: no rebound or guarding ,, bs present. ext pulses present , no cyanosis ,Gait well balanced well coordinated. neuro: axo3 , nonfocal. Results Labs CBC and Chem 7: 03/18/21 11:56 03/18/21 11:56 Labs: Laboratory Results - last 24 hr 03/18/21 03/18/21 03/18/21 11:56 11:56 12:48 MCV 90.5 MCH 30.9 MCHC 34.2 RDW 12.1 Plt Count 507 H MPV 9.4 Absolute Nucleated RBC 0.000 Nucleated RBC % (auto) 0.0 Anion Gap 14 Estim Creat Clear Calc 75.6 Estimated GFR > 60 Random Glucose 111 Lactic Acid 1.6 Calcium 9.7 Magnesium 2.0 Total Bilirubin 0.6 Direct Bilirubin 0.2 AST 21 ALT 23 Alkaline Phosphatase 53 Total Protein 7.0 Albumin 4.2 Lipase 31 Urine Color Urine Appearance Urine pH Ur Specific [place] Urine Protein Urine Glucose (UA) Urine Ketones Urine Blood Urine Nitrite Ur Leukocyte Esterase Stool Occult Blood 03/18/21 03/18/21 12:48 14:23 MCV MCH MCHC RDW Plt Count MPV Absolute Nucleated RBC Nucleated RBC % (auto) Anion Gap Estim Creat Clear Calc Estimated GFR Random Glucose Lactic Acid Calcium Magnesium Total Bilirubin Direct Bilirubin AST ALT Alkaline Phosphatase Total Protein Albumin Lipase Urine Color YELLOW Urine Appearance CLEAR Urine pH 6.5 Ur Specific [place] <= 1.005 Urine Protein NEG Urine Glucose (UA) NEG Urine Ketones NEG Urine Blood NEG Urine Nitrite NEG Ur Leukocyte Esterase NEG Stool Occult Blood POSITIVE Imaging Radiologist's Impressions: Impressions Abdomen/Pelvis CT 03/18/21 12:33 IMPRESSION: Severe colitis of the distal colon. This does not appear appreciably changed from 03/04/2021 exam. Assessment and Plan (1) IBD (inflammatory bowel disease): Status: Acute (2) Colitis: Status: Acute (3) Hypothyroidism: Qualifiers: Hypothyroidism type: acquired Qualified Code(s): E03.9 - Hypothyroidism, unspecified Status: Acute 1. Possible Reccurrent Colitis VS IBD flare ?: Lab imaging chemistry reviewed personally and interpreted: Leukocytosis thought to be secondary to steroid use. Normal lactic acid ED discussed the case with GI and started on IV steroids, will defer antibiotics since she already had 2 time antibiotic in last month or so. Will check stool studies Patient will be on clear liquid diet, Zofran, IV steroids, iv morphine , ivf gentle GI evaluation in the morning 2. Hypothyroidism: Will continue levothyroxine. covid testing and med reconcillation still pending DVT prophylaxis with Lovenox Above management discussed with the patient in detail length she understand and in agreement with the above plan including code status , time spent 70 minutes and 50% time spent on counseling. patient is full code Quality Stroke Does the patient have a stroke diagnosis?: No VTE Prior VTE?: No VTE Risk Level:: Medical - moderate - high VTE Device Contraindication: N/A - Device Ordered VTE Drug Contraindication: N/A - Med Ordered
[2021-03-18] MEDS: Pantoprazole Sodium 40 MG/10 ML VIAL IVPUSH (18:09)
--- NOTE | 2021-03-18 18:09 | PHA.MEDREC ---
Pharmacy Consult ? Medication Reconciliation Pharmacy has completed the medication reconciliation.
[2021-03-18] MEDS: methylPREDNISolone Sod Succ 40 MG/ML VIAL 20 MG IVPUSH (18:10)
[2021-03-18 18:19] LABS: COVID-19 Test Negative (Negative)
[2021-03-18] MEDS: Lactated Ringers 1,000 ML 80 ML IVCONT (18:59)
[2021-03-18] MEDS: Enoxaparin Sodium 40 MG/0.4 ML SYRINGE SUBCUT (19:00)
--- NOTE | 2021-03-18 19:22 | PC.NURSE ---
Patient medicated per emar as noted. Patient given clear fluid per MD order. This film writer called to give report but RN was busy with bedside report. She is suppose to call back for report
[2021-03-18 19:54] VITALS: RESP 15
[2021-03-18 20:00] VITALS: PULSE 61; RESP 18; TEMP 36.1; O2SAT 96
[2021-03-19] VITALS (7 sets, daily range): BP systolic 111–172; BP diastolic 58–81; PULSE 59–70; RESP 16–22; TEMP 36–36.7; O2SAT 96–99
[2021-03-19] MEDS: methylPREDNISolone Sod Succ 40 MG/ML VIAL 20 MG IVPUSH ×3 (01:45→16:25)
[2021-03-19] MEDS: Acetaminophen 325 MG TABLET 650 MG PO ×2 (01:45→11:46)
[2021-03-19] MEDS: Pantoprazole Sodium 40 MG/10 ML VIAL IVPUSH (05:16)
[2021-03-19] MEDS: Lactated Ringers 1,000 ML 80 ML IVCONT (05:28)
[2021-03-19 05:50] LABS: Hematocrit 38.5 % (37-47); Hemoglobin 12.9 g/dl (12.0-16.0); Mean Corpuscular HGB Conc 33.5 g/dl (31.0-35.0); Mean Corpuscular Hemoglobin 31.2 pg (27.0-33.0); Mean Platelet Volume 9.7 fL (9.4-12.3); Platelet Count 457 X10*3/uL (160-400); Red Blood Count 4.14 X10*6/uL (4.20-5.50); Red Cell Distribution Width 12.4 % (11.0-16.0); White Blood Count 9.1 X10*3/uL (4.8-10.8)
[2021-03-19 06:34] LABS: Anion Gap 12 (12-20); Blood Urea Nitrogen 9 mg/dL (9-16); Calcium 9.4 mg/dL (8.4-10.2); Carbon Dioxide 26 mmol/L (22-29); Chloride 108 mmol/L (96-108); Creatinine Clr Calc Pharmacy 85.8; Estimated Glomerular Filt Rate > 60; Glucose Random 124 mg/dL (60-115); Potassium 4.2 mmol/L (3.3-5.1); Sodium 142 mmol/L (135-145)
[2021-03-19] MEDS: Enoxaparin Sodium 40 MG/0.4 ML SYRINGE SUBCUT (08:47)
--- NOTE | 2021-03-19 10:22 | MHC.CM.PN ---
KAELYN 03/19/21, EMR REVIEWED, PT ADMITTED TO OBE=SERVATION W/COLITIS VS IBD FLARE, PT REPORTS SHE WAS ON FLAGYL AND CIPRO AT HOME W/NO IMPROVEMENT, PT INDEPENDENT W/ALL CARE, NO DME AND NO HOME SERVICES, PT VERIFIES PCP NIURKA VELASQUEZ, GI SPECIALIST DR SALDAÑA, PT COMPLETED HCP W/CM, PT GIVEN EDUCATIONAL INFO, ORIGINAL AND 3 COPIES AND A COPY WAS UPLOADED TO [employer] AND PLACED IN CHART. D/C PLAN: HOME SELF-CARE, FAMILY FOR TRANSPORT HCP: DANNI NAIDU (SPOUSE) H [phone], C [phone] VIKTORIA GAINESSHANKAR (SON) [phone]
[2021-03-19] MEDS: Cyanocobalamin (Vitamin B-12) 1,000 MCG TABLET 1000 MCG PO (10:44)
[2021-03-19] MEDS: Levothyroxine Sodium 100 MCG TABLET PO (10:44)
[2021-03-19 11:55] LABS: Leukocytes Stool Qualitative NEGATIVE (NEGATIVE)
[2021-03-19 12:15] LABS: CDiff Gene PCR NEGATIVE (Negative)
[2021-03-19] MEDS: hydrOXYzine HCL 10 MG TABLET PO ×2 (13:02→22:49)
[2021-03-19] MEDS: Dicyclomine HCl 10 MG CAPSULE 20 MG PO ×2 (14:42→19:59)
--- NOTE | 2021-03-19 16:03 | CONS_ITS ---
DATE OF SERVICE: 03/19/2021 REFERRING PHYSICIAN: Krystal Pereyra MD REASON FOR CONSULTATION: Colitis. HISTORY OF PRESENT ILLNESS: The patient is a pleasant 51-year-old woman, who was admitted to the hospital yesterday because of colitis. She developed abdominal pain and change of bowel habits with diarrhea and urgency back in January. She was diagnosed with colitis clinically and treated with a course of Flagyl without much improvement. She was seen in the emergency room on March [address] scanning which confirmed colitis. She was prescribed Cipro and Flagyl and eventually required colonoscopy, which was done on March 14. The colonoscopy was a limited exam as the scope could only be passed to 20 cm because of inflammation or possible adhesions. She was started on prednisone on Wednesday and over the weekend, reports persistent symptoms of abdominal pain, nausea, decreased p.o. intake, and very little in the way of bowel movements. Finally, having a pink-tinged bowel movement the day of admission. She was evaluated in the emergency department and CT scanning again showed colitis. Because of her symptoms, she was admitted to the hospital. Since admission, she has been treated with IV steroids and pain medications. Biopsies from the rectum on her colonoscopy were normal. Since admission, she continues to have bilateral lower crampy and rectal discomfort, worse with eating and bowel movements. PAST MEDICAL HISTORY: 1. Hypothyroidism. 2. Choledocholithiasis that required multiple ERCPs. 3. Screening colonoscopy in October of 2017 with a small tubular adenoma. 4. Cholecystectomy. 5. Retroperitoneal abscess secondary to gallstones. CURRENT MEDICATIONS: Her current medication list is reviewed in the chart. ALLERGIES: LATEX AND PENICILLIN. FAMILY HISTORY: Positive for colon cancer in her mother. There is no Crohn disease or ulcerative colitis. SOCIAL HISTORY: There is no current tobacco, alcohol, or substance abuse. REVIEW OF SYSTEMS: SKIN: No pruritus. HEENT: Negative. CARDIOPULMONARY: She denies shortness of breath or chest pain. GASTROINTESTINAL: As above. GENITOURINARY: Negative. NEUROPSYCHIATRIC: Negative. PHYSICAL EXAMINATION: GENERAL: Shows a pleasant female, lying in bed, complaining of back pain and lower abdominal pain. VITAL SIGNS: Stable. She has been afebrile. SKIN: Anicteric. HEENT: Shows no scleral icterus. NECK: Without lymphadenopathy or thyromegaly. LUNGS: Clear. HEART: Shows regular rate and rhythm, S1, S2. No murmur. ABDOMEN: Soft. There is some mild diffuse tenderness to palpation, but no focal guarding, tenderness, or rebound. Bowel sounds are present. No organomegaly is palpable. EXTREMITIES: Without edema. LABORATORY DATA: Shows a white blood cell count on admission of 17.9, down to 9.1 today, hematocrit 38.5, platelet count 457,000. Sedimentation rate done a week ago was 60. CT scanning is reviewed showing the findings as noted above. IMPRESSION: Colitis. Her presentation appears consistent with inflammatory bowel disease and I agree with treating her with IV fluids, pain medications, and gradually advancing her diet as tolerated. She is tolerating liquids now and her IV has been discontinued. She is still getting IV Solu-Medrol and I would recommend continuing this. Because of her crampy abdominal pain, I have added dicyclomine to her regimen and would keep her on full liquids today. She will eventually require repeat colonoscopy, but at this point, attempting a repeat colonoscopy is unlikely to change her therapy. Therefore, I would recommend continuing her present care. Thanks for asking me to see her. I will follow her in the hospital with you. MD MARIO Stringer/EVA / [phone] TERENCE
--- NOTE | 2021-03-19 16:39 | P.PNIM_ITS ---
Subjective Subjective Date of Service: 03/19/21 Interval History: colitis Review of Systems Left lower quadrant pain, diarrhea improving The chest pain or shortness of breath or cough Physical Exam Vital Signs: Vital Signs: Last Vital Signs Temp 97.3 F 03/19/21 15:26 Pulse 70 03/19/21 15:26 Resp 18 03/19/21 15:26 BP 111/64 03/19/21 15:26 Pulse Ox 97 03/19/21 15:26 Body Mass Index 33.0 Appearance: Alert.? Oriented X3.? not in distress.? Eyes: Pupils equal, round and reactive to light.? Sclera nonicteric.? ENT: Pharynx normal.? Moist mucous membranes. cvs: rrr, [id number] , no murmur res: clear to auscultation ,no rhonchii or wheezing abd: no rebound or guarding ,left lower abd pain , bs present. ext pulses present , no cyanosis . neuro: axo3 , nonfocal. Objective Data Active Medications Acetaminophen (Acetaminophen 325 Mg Tablet) 650 mg PO Q6H PRN PRN Reason: Pain, Severe (Pain Scale 7-10) Last Admin: 03/19/21 11:46 Dose: 650 mg Documented by: TOMEKA Cyanocobalamin (Cyanocobalamin (Vitamin B-12) 1,000 Mcg Tablet) 1,000 mcg PO DAILY [facility] Last Admin: 03/19/21 10:44 Dose: 1,000 mcg Documented by: TOMEKA Dicyclomine HCl (Dicyclomine Hcl 10 Mg Capsule) 20 mg PO QIDACHS [facility] Last Admin: 03/19/21 14:42 Dose: 20 mg Documented by: TOMEKA Enoxaparin Sodium (Enoxaparin Sodium 40 Mg/0.4 Ml Syringe) 40 mg SUBCUT DAILY [facility] Last Admin: 03/19/21 08:47 Dose: 40 mg Documented by: TOMEKA Hydroxyzine HCl (Hydroxyzine Hcl 10 Mg Tablet) 10 mg PO Q8H PRN PRN Reason: Anxiety Last Admin: 03/19/21 13:02 Dose: 10 mg Documented by: TOMEKA Levothyroxine Sodium (Levothyroxine Sodium 100 Mcg Tablet) 100 mcg PO DAILY@0630 [facility] Last Admin: 03/19/21 10:44 Dose: 100 mcg Documented by: TOMEKA Methylprednisolone Sodium Succinate (Methylprednisolone Sod Succ 40 Mg/Ml Vial) 20 mg IVPUSH Q8H [facility] Last Admin: 03/19/21 16:25 Dose: 20 mg Documented by: ANA Morphine Sulfate (Morphine Sulfate 2 Mg/Ml Cartridge) 2 mg IVPUSH Q4H PRN; Protocol PRN Reason: Pain, Mild (Pain Scale 1-3) Ondansetron HCl (Ondansetron Hcl 4 Mg/2 Ml Vial) 4 mg IVPUSH Q8H PRN PRN Reason: Nausea Pantoprazole Sodium (Pantoprazole Sodium 40 Mg/10 Ml Vial) 40 mg IVPUSH DAILY@0630 [facility] Last Admin: 03/19/21 05:16 Dose: 40 mg Documented by: MARÍA ELENA Pharmacy Consult (Consult Rx Perform Med Rec) 1 each MISCELLANE ONCE PRN PRN Reason: Consult order Labs CBC & Chem 7: 03/19/21 05:23 03/19/21 05:23 Labs: Laboratory Results - last 24 hr 03/18/21 03/18/21 03/19/21 11:56 17:58 05:23 MCV 93.0 MCH 31.2 MCHC 33.5 RDW 12.4 Plt Count 457 H MPV 9.7 Absolute Nucleated RBC 0.000 Nucleated RBC % (auto) 0.0 Anion Gap Estim Creat Clear Calc Estimated GFR Random Glucose Calcium Magnesium 2.0 Total Bilirubin 0.6 Direct Bilirubin 0.2 AST 21 ALT 23 Alkaline Phosphatase 53 Total Protein 7.0 Albumin 4.2 Lipase 31 Stool Leukocytes, Qual C. difficile Tox B Gene COVID-19 ([facility]) Negative COVID-19 Clin Com See Note 03/19/21 03/19/21 03/19/21 05:23 09:45 09:45 MCV MCH MCHC RDW Plt Count MPV Absolute Nucleated RBC Nucleated RBC % (auto) Anion Gap 12 Estim Creat Clear Calc 85.8 Estimated GFR > 60 Random Glucose 124 H Calcium 9.4 Magnesium Total Bilirubin Direct Bilirubin AST ALT Alkaline Phosphatase Total Protein Albumin Lipase Stool Leukocytes, Qual NEGATIVE C. difficile Tox B Gene NEGATIVE COVID-19 ([facility]) COVID-19 Clin Com Assessment and Plan (1) IBD (inflammatory bowel disease): Status: Acute (2) Colitis: Status: Acute Assessment and Plan: 1. Possible Reccurrent Colitis? VS? IBD flare ?: Lab imaging chemistry reviewed personally and interpreted: Leukocytosis thought to be secondary to steroid use. Normal lactic acid ED discussed the case with GI and started on IV steroids, will defer antibiotics since she already had 2 time antibiotic in last month or so. Will check stool studies-stool for cdiff and wbc neg Patient will be on clear liquid diet, Zofran, IV steroids, iv morphine , ivf gentle, will try full liquid diet GI evaluation pending 2. Hypothyroidism:? Will continue levothyroxine. DVT prophylaxis with Lovenox Quality Stroke Does the patient have a stroke diagnosis?: No VTE Prior VTE?: No VTE Risk Level:: Medical - moderate - high VTE Device Contraindication: N/A - Device Ordered VTE Drug Contraindication: N/A - Med Ordered
[2021-03-19] MEDS: Morphine Sulfate 2 MG/ML CARTRIDGE IVPUSH ×2 (17:39→22:48)
[2021-03-19] MEDS: LORazepam 2 MG/ML VIAL 0.5 MG IVPUSH (20:43)
[2021-03-20] MEDS: methylPREDNISolone Sod Succ 40 MG/ML VIAL 20 MG IVPUSH ×3 (02:47→16:56)
[2021-03-20 04:00] VITALS: RESP 16
[2021-03-20] MEDS: Levothyroxine Sodium 100 MCG TABLET PO (06:01)
[2021-03-20] MEDS: Pantoprazole Sodium 40 MG/10 ML VIAL IVPUSH (06:01)
[2021-03-20 08:00] VITALS: BP 110/58; PULSE 68; RESP 16; TEMP 36.1; O2SAT 96
[2021-03-20] MEDS: Cyanocobalamin (Vitamin B-12) 1,000 MCG TABLET 1000 MCG PO (08:51)
[2021-03-20] MEDS: Dicyclomine HCl 10 MG CAPSULE 20 MG PO ×4 (08:51→20:47)
[2021-03-20] MEDS: Enoxaparin Sodium 40 MG/0.4 ML SYRINGE SUBCUT (08:55)
[2021-03-20] MEDS: Morphine Sulfate 2 MG/ML CARTRIDGE IVPUSH ×3 (11:58→18:46)
[2021-03-20 12:00] VITALS: BP 168/81; PULSE 65; RESP 16; TEMP 36.8; O2SAT 98
[2021-03-20] MEDS: hydrOXYzine HCL 10 MG TABLET PO (12:02)
--- NOTE | 2021-03-20 13:01 | PM.GIPN ---
Subjective Subjective Date of Service: 03/20/21 Interval History: crampy bilateral abdominal and rectal pain Critical Care Time (minutes): 0 Physical Exam Vital Signs: Vital Signs: Last Vital Signs Temp 98.2 F 03/20/21 12:00 Pulse 65 03/20/21 12:00 Resp 16 03/20/21 12:00 BP 168/81 H 03/20/21 12:00 Pulse Ox 98 03/20/21 12:00 Body Mass Index 33.0 GI: Other: soft, no focal abdominal tenderness Objective Data Labs CBC & Chem 7: 03/19/21 05:23 03/19/21 05:23 Microbiology Microbiology Results: Microbiology 03/19/21 09:45 Stool Stool Culture - Preliminary Normal so far. Procedures Date of Service Date of Service: 03/20/21 Progress Note: A&P Assessment and plan (1) Colitis: Status: Acute Assessment and Plan: continue steroids dicyclomine started yesterday hydrocortisone rectal cream added today stay on clear liquids today. Fall Risk Details Current Medications: Current Medications Acetaminophen (Acetaminophen 325 Mg Tablet) 650 mg PO Q6H PRN PRN Reason: Pain, Severe (Pain Scale 7-10) Last Admin: 03/19/21 11:46 Dose: 650 mg Documented by: Cyanocobalamin (Cyanocobalamin (Vitamin B-12) 1,000 Mcg Tablet) 1,000 mcg PO DAILY [facility] Last Admin: 03/20/21 08:51 Dose: 1,000 mcg Documented by: Dicyclomine HCl (Dicyclomine Hcl 10 Mg Capsule) 20 mg PO QIDACHS [facility] Last Admin: 03/20/21 11:55 Dose: 20 mg Documented by: Hydroxyzine HCl (Hydroxyzine Hcl 10 Mg Tablet) 10 mg PO Q8H PRN PRN Reason: Anxiety Last Admin: 03/20/21 12:02 Dose: 10 mg Documented by: Levothyroxine Sodium (Levothyroxine Sodium 100 Mcg Tablet) 100 mcg PO DAILY@0630 [facility] Last Admin: 03/20/21 06:01 Dose: 100 mcg Documented by: Methylprednisolone Sodium Succinate (Methylprednisolone Sod Succ 40 Mg/Ml Vial) 20 mg IVPUSH Q8H [facility] Last Admin: 03/20/21 08:52 Dose: 20 mg Documented by: Morphine Sulfate (Morphine Sulfate 2 Mg/Ml Cartridge) 2 mg IVPUSH Q4H PRN; Protocol PRN Reason: Pain, Mild (Pain Scale 1-3) Last Admin: 03/20/21 11:58 Dose: 2 mg Documented by: Ondansetron HCl (Ondansetron Hcl 4 Mg/2 Ml Vial) 4 mg IVPUSH Q8H PRN PRN Reason: Nausea Pantoprazole Sodium (Pantoprazole Sodium 40 Mg/10 Ml Vial) 40 mg IVPUSH DAILY@0630 [facility] Last Admin: 03/20/21 06:01 Dose: 40 mg Documented by: Pharmacy Consult (Consult Rx Perform Med Rec) 1 each MISCELLANE ONCE PRN PRN Reason: Consult order Time Spent With Patient Time: Total time spent is greater than 50% in coordination of care (as documented) at patient's floor/unit and/or counseling patient: Time with patient: 15 - 24 minutes Quality Stroke Does the patient have a stroke diagnosis?: No VTE Prior VTE?: No VTE Risk Level:: Medical - moderate - high VTE Device Contraindication: N/A - Device Ordered VTE Drug Contraindication: N/A - Med Ordered
--- NOTE | 2021-03-20 14:11 | HO.PM.IMPN ---
Subjective Subjective Date of Service: 03/20/21 Interval History: abd pain Review of Systems Still has left lower abdominal pain, Denies any new complaint of chest pain or shortness of breath or fever or chills or vomiting Denies any cough Denies any weakness or numbness. Physical Exam Vital Signs: Vital Signs: Last Vital Signs Temp 98.2 F 03/20/21 12:00 Pulse 65 03/20/21 12:00 Resp 16 03/20/21 12:00 BP 168/81 H 03/20/21 12:00 Pulse Ox 98 03/20/21 12:00 Body Mass Index 33.0 Appearance: Alert.? Oriented X3.? not in distress.? Eyes: Pupils equal, round and reactive to light.? Sclera nonicteric.? ENT: Pharynx normal.? Moist mucous membranes. cvs: rrr, [id number] , no murmur res: clear to auscultation ,no rhonchii or wheezing abd: no rebound or guarding , still has cramy/left lower abd, bs present. ext pulses present , no cyanosis ,Gait well balanced well coordinated. neuro: axo3 , nonfocal. Objective Data Active Medications Acetaminophen (Acetaminophen 325 Mg Tablet) 650 mg PO Q6H PRN PRN Reason: Pain, Severe (Pain Scale 7-10) Last Admin: 03/19/21 11:46 Dose: 650 mg Documented by: TOMEKA Cyanocobalamin (Cyanocobalamin (Vitamin B-12) 1,000 Mcg Tablet) 1,000 mcg PO DAILY [facility] Last Admin: 03/20/21 08:51 Dose: 1,000 mcg Documented by: TOMEKA Dicyclomine HCl (Dicyclomine Hcl 10 Mg Capsule) 20 mg PO QIDACHS [facility] Last Admin: 03/20/21 11:55 Dose: 20 mg Documented by: TOMEKA Hydrocortisone (Hydrocortisone 2.5 % Rectal Cr 30 Gm Tube) 1 appl [place] BID [facility] Hydroxyzine HCl (Hydroxyzine Hcl 10 Mg Tablet) 10 mg PO Q8H PRN PRN Reason: Anxiety Last Admin: 03/20/21 12:02 Dose: 10 mg Documented by: TOMEKA Levothyroxine Sodium (Levothyroxine Sodium 100 Mcg Tablet) 100 mcg PO DAILY@0630 [facility] Last Admin: 09/23/21 06:01 Dose: 100 mcg Documented by: MARÍA ELENA Methylprednisolone Sodium Succinate (Methylprednisolone Sod Succ 40 Mg/Ml Vial) 20 mg IVPUSH Q8H [facility] Last Admin: 03/20/21 08:52 Dose: 20 mg Documented by: TOMEKA Morphine Sulfate (Morphine Sulfate 2 Mg/Ml Cartridge) 2 mg IVPUSH Q4H PRN; Protocol PRN Reason: Pain, Mild (Pain Scale 1-3) Last Admin: 03/20/21 11:58 Dose: 2 mg Documented by: TOMEKA Ondansetron HCl (Ondansetron Hcl 4 Mg/2 Ml Vial) 4 mg IVPUSH Q8H PRN PRN Reason: Nausea Pantoprazole Sodium (Pantoprazole Sodium 40 Mg/10 Ml Vial) 40 mg IVPUSH DAILY@0630 [facility] Last Admin: 03/20/21 06:01 Dose: 40 mg Documented by: MARÍA ELENA Pharmacy Consult (Consult Rx Perform Med Rec) 1 each MISCELLANE ONCE PRN PRN Reason: Consult order Labs CBC & Chem 7: 03/19/21 05:23 03/19/21 05:23 Microbiology Microbiology Results: Microbiology 03/19/21 09:45 Stool Culture - Preliminary Stool Normal so far. Assessment and Plan (1) IBD (inflammatory bowel disease): Status: Acute Assessment and Plan: 1. Possible Reccurrent Colitis? VS? IBD flare ?: Lab imaging chemistry reviewed personally and interpreted: Leukocytosis thought to be secondary to steroid use-resolved. Normal lactic acid ED discussed the case with GI and started on IV steroids, will defer antibiotics since she already had 2 time antibiotic in last month or so. Will check stool studies-stool for cdiff and wbc neg Patient will be on clear liquid diet, Zofran, IV steroids, iv morphine , ivf gentle, still not able to tolerate diet having lot of cramping and pain with full liquids GI evaluation noted -will continue iv steriods as above. 2. Hypothyroidism:? Will continue levothyroxine. Quality Stroke Does the patient have a stroke diagnosis?: No VTE Prior VTE?: No VTE Risk Level:: Medical - moderate - high VTE Device Contraindication: N/A - Device Ordered VTE Drug Contraindication: N/A - Med Ordered
[2021-03-20 15:22] VITALS: BP 176/76; PULSE 65; RESP 18; TEMP 37.1; O2SAT 99
[2021-03-20] MEDS: Hydrocortisone 2.5 % Rectal Cr 30 GM TUBE 1 APPL PR (15:38)
[2021-03-20] MEDS: LORazepam 0.5 MG TABLET PO (18:47)
[2021-03-20 19:50] VITALS: BP 104/59; PULSE 66; RESP 18; TEMP 36.7; O2SAT 95
[2021-03-20 23:46] VITALS: BP 101/53; PULSE 54; RESP 14; TEMP 36.1; O2SAT 98
[2021-03-21] MEDS: methylPREDNISolone Sod Succ 40 MG/ML VIAL 20 MG IVPUSH ×2 (00:52→08:17)
[2021-03-21 04:00] VITALS: BP 93/55; PULSE 58; RESP 14; TEMP 36.2; O2SAT 95
[2021-03-21] MEDS: Morphine Sulfate 2 MG/ML CARTRIDGE IVPUSH ×2 (06:53→16:50)
[2021-03-21] MEDS: Pantoprazole Sodium 40 MG/10 ML VIAL IVPUSH (06:54)
[2021-03-21] MEDS: Levothyroxine Sodium 100 MCG TABLET PO (06:57)
[2021-03-21] MEDS: Dicyclomine HCl 10 MG CAPSULE 20 MG PO ×4 (07:00→22:28)
[2021-03-21 08:00] VITALS: BP 138/67; PULSE 67; RESP 16; TEMP 36.6; O2SAT 98
[2021-03-21] MEDS: Cyanocobalamin (Vitamin B-12) 1,000 MCG TABLET 1000 MCG PO (08:17)
[2021-03-21] MEDS: Hydrocortisone 2.5 % Rectal Cr 30 GM TUBE 1 APPL PR ×2 (08:17→22:30)
[2021-03-21 11:57] VITALS: BP 118/65; PULSE 69; RESP 18; TEMP 36.1; O2SAT 98
--- NOTE | 2021-03-21 12:10 | PM.GIPN ---
Subjective Subjective Date of Service: 03/21/21 Critical Care Time (minutes): 0 Comment: had severe cramping after eating [place] ice this am required iv pain medication Physical Exam Vital Signs: Vital Signs: Last Vital Signs Temp 97.0 F 03/21/21 11:57 Pulse 69 03/21/21 11:57 Resp 18 03/21/21 11:57 BP 118/65 03/21/21 11:57 Pulse Ox 98 03/21/21 11:57 Body Mass Index 33.0 GI: Other: abd soft, LLQ tenderness to deep ppalpation Psych: Other: tearful about slow progress Objective Data Labs CBC & Chem 7: 03/19/21 05:23 03/19/21 05:23 Labs: stool cx negative calprotectin pending Microbiology Microbiology Results: Microbiology 03/19/21 09:45 Stool Stool Culture - Preliminary Normal so far. Procedures Date of Service Date of Service: 03/21/21 Progress Note: A&P Assessment and plan (1) Colitis: Status: Acute Assessment and Plan: continue iv steroids, dicyclomine keep on clears for now Dr Rodriguez covering over weekend Fall Risk Details Current Medications: Current Medications Acetaminophen (Acetaminophen 325 Mg Tablet) 650 mg PO Q6H PRN PRN Reason: Pain, Severe (Pain Scale 7-10) Last Admin: 03/19/21 11:46 Dose: 650 mg Documented by: Cyanocobalamin (Cyanocobalamin (Vitamin B-12) 1,000 Mcg Tablet) 1,000 mcg PO DAILY [facility] Last Admin: 03/21/21 08:17 Dose: 1,000 mcg Documented by: Dicyclomine HCl (Dicyclomine Hcl 10 Mg Capsule) 20 mg PO QIDACHS [facility] Last Admin: 03/21/21 07:00 Dose: 20 mg Documented by: Hydrocortisone (Hydrocortisone 2.5 % Rectal Cr 30 Gm Tube) 1 appl [place] BID [facility] Last Admin: 03/21/21 08:17 Dose: 1 appl Documented by: Hydroxyzine HCl (Hydroxyzine Hcl 10 Mg Tablet) 10 mg PO Q8H PRN PRN Reason: Anxiety Last Admin: 03/20/21 12:02 Dose: 10 mg Documented by: Levothyroxine Sodium (Levothyroxine Sodium 100 Mcg Tablet) 100 mcg PO DAILY@0630 [facility] Last Admin: 03/21/21 06:57 Dose: 100 mcg Documented by: Methylprednisolone Sodium Succinate (Methylprednisolone Sod Succ 40 Mg/Ml Vial) 40 mg IVPUSH Q8H [facility] Morphine Sulfate (Morphine Sulfate 2 Mg/Ml Cartridge) 2 mg IVPUSH Q3H PRN; Protocol PRN Reason: Pain, Mild (Pain Scale 1-3) Last Admin: 03/21/21 06:53 Dose: 2 mg Documented by: Ondansetron HCl (Ondansetron Hcl 4 Mg/2 Ml Vial) 4 mg IVPUSH Q8H PRN PRN Reason: Nausea Pantoprazole Sodium (Pantoprazole Sodium 40 Mg/10 Ml Vial) 40 mg IVPUSH DAILY@0630 [facility] Last Admin: 03/21/21 06:54 Dose: 40 mg Documented by: Pharmacy Consult (Consult Rx Perform Med Rec) 1 each MISCELLANE ONCE PRN PRN Reason: Consult order Time Spent With Patient Time: Total time spent is greater than 50% in coordination of care (as documented) at patient's floor/unit and/or counseling patient: Time with patient: 15 - 24 minutes Quality Stroke Does the patient have a stroke diagnosis?: No VTE Prior VTE?: No VTE Risk Level:: Medical - moderate - high VTE Device Contraindication: N/A - Device Ordered VTE Drug Contraindication: N/A - Med Ordered
[2021-03-21] MEDS: methylPREDNISolone Sod Succ 40 MG/ML VIAL IVPUSH ×2 (12:17→19:20)
--- NOTE | 2021-03-21 14:37 | MHC.CM.PN ---
EMR REVIEWED, PER GI PT WILL CONT IV STEROIDS, DYCLOMINE AND WILL NEED CLEAR LIQUIDS SHE COULD NOT TOLERATE [place] ICE THIS MORNING, D/C PLAN CONT'S TO BE HOME SELF-CARE AND FAMILY FOR TRANSPORT.
--- NOTE | 2021-03-21 15:39 | P.PNIM_ITS ---
Subjective Subjective Date of Service: 03/21/21 Interval History: possible IBD flare Review of Systems Patient still has left lower quadrant pain on and off, still could not tolerate diet. Denies any new complaint of chest pain or shortness of breath or fever or chills Denies any cough Denies any weakness or numbness. Physical Exam Vital Signs: Vital Signs: Last Vital Signs Temp 97.0 F 03/21/21 11:57 Pulse 69 03/21/21 11:57 Resp 18 03/21/21 11:57 BP 118/65 03/21/21 11:57 Pulse Ox 98 03/21/21 11:57 Body Mass Index 33.0 Alert.? Oriented X3.? not in distress.? Eyes: Pupils equal, round and reactive to light.? Sclera nonicteric.? ENT: Pharynx normal.? Moist mucous membranes. cvs: rrr, [id number] , no murmur res: clear to auscultation ,no rhonchii or wheezing abd: no rebound or guarding , left lower abd, bs present. ext pulses present , no cyanosis ,Gait well balanced well coordinated. neuro: axo3 , nonfocal. Objective Data Active Medications Acetaminophen (Acetaminophen 325 Mg Tablet) 650 mg PO Q6H PRN PRN Reason: Pain, Severe (Pain Scale 7-10) Last Admin: 03/19/21 11:46 Dose: 650 mg Documented by: TOMEKA Cyanocobalamin (Cyanocobalamin (Vitamin B-12) 1,000 Mcg Tablet) 1,000 mcg PO DAILY [facility] Last Admin: 03/21/21 08:17 Dose: 1,000 mcg Documented by: DANIS Dicyclomine HCl (Dicyclomine Hcl 10 Mg Capsule) 20 mg PO QIDACHS [facility] Last Admin: 03/21/21 12:17 Dose: 20 mg Documented by: DANIS Hydrocortisone (Hydrocortisone 2.5 % Rectal Cr 30 Gm Tube) 1 appl [place] BID [facility] Last Admin: 03/21/21 08:17 Dose: 1 appl Documented by: DANIS Hydroxyzine HCl (Hydroxyzine Hcl 10 Mg Tablet) 10 mg PO Q8H PRN PRN Reason: Anxiety Last Admin: 03/20/21 12:02 Dose: 10 mg Documented by: TOMEKA Levothyroxine Sodium (Levothyroxine Sodium 100 Mcg Tablet) 100 mcg PO DAILY@0630 [facility] Last Admin: 03/21/21 06:57 Dose: 100 mcg Documented by: ALFREDO Methylprednisolone Sodium Succinate (Methylprednisolone Sod Succ 40 Mg/Ml Vial) 40 mg IVPUSH Q8H [facility] Last Admin: 03/21/21 12:17 Dose: 40 mg Documented by: DANIS Morphine Sulfate (Morphine Sulfate 2 Mg/Ml Cartridge) 2 mg IVPUSH Q3H PRN; Protocol PRN Reason: Pain, Mild (Pain Scale 1-3) Last Admin: 03/21/21 06:53 Dose: 2 mg Documented by: ALFREDO Ondansetron HCl (Ondansetron Hcl 4 Mg/2 Ml Vial) 4 mg IVPUSH Q8H PRN PRN Reason: Nausea Pantoprazole Sodium (Pantoprazole Sodium 40 Mg/10 Ml Vial) 40 mg IVPUSH DAILY@30 [facility] Last Admin: 03/21/21 06:54 Dose: 40 mg Documented by: ALFREDO Pharmacy Consult (Consult Rx Perform Med Rec) 1 each MISCELLANE ONCE PRN PRN Reason: Consult order Labs CBC & Chem 7: 03/19/21 05:23 03/19/21 05:23 Microbiology Microbiology Results: Microbiology 03/19/21 09:45 Stool Culture - Preliminary Stool Normal so far. Assessment and Plan (1) IBD (inflammatory bowel disease): Status: Acute Assessment and Plan: 1. Possible Reccurrent Colitis? VS? IBD flare ?: Lab imaging chemistry reviewed personally and interpreted: Leukocytosis thought to be secondary to steroid use-resolved. Normal lactic acid ED discussed the case with GI and started on IV steroids, will defer antibiotics since she already had 2 time antibiotic in last month or so. Will check stool studies-stool for cdiff and wbc neg Patient will be on clear liquid diet, Zofran, adjusted IV steroids 40 mg tid, iv morphine , ivf gentle, still not able to tolerate diet having lot of cramping and pain with full liquids GI evaluation noted -will continue iv steriods as above. 2. Hypothyroidism:? Will continue levothyroxine. Quality Stroke Does the patient have a stroke diagnosis?: No VTE Prior VTE?: No VTE Risk Level:: Medical - moderate - high VTE Device Contraindication: N/A - Device Ordered VTE Drug Contraindication: N/A - Med Ordered
[2021-03-21 16:00] VITALS: BP 123/63; PULSE 66; RESP 15; TEMP 36.4; O2SAT 98
[2021-03-21 19:57] VITALS: BP 102/57; PULSE 58; RESP 15; TEMP 36.3; O2SAT 96
[2021-03-22] VITALS (8 sets, daily range): BP systolic 99–155; BP diastolic 56–82; PULSE 52–72; RESP 16–20; TEMP 36–36.6; O2SAT 96–99
[2021-03-22] MEDS: methylPREDNISolone Sod Succ 40 MG/ML VIAL IVPUSH ×3 (03:31→18:27)
[2021-03-22] MEDS: Levothyroxine Sodium 100 MCG TABLET PO (06:00)
[2021-03-22 07:07] LABS: Anion Gap 16 (12-20); Blood Urea Nitrogen 15 mg/dL (9-16); Calcium 9.9 mg/dL (8.4-10.2); Carbon Dioxide 25 mmol/L (22-29); Chloride 104 mmol/L (96-108); Creatinine Clr Calc Pharmacy 78.4; Estimated Glomerular Filt Rate > 60; Glucose Random 124 mg/dL (60-115); Potassium 4.3 mmol/L (3.3-5.1); Sodium 141 mmol/L (135-145)
[2021-03-22] MEDS: Dicyclomine HCl 10 MG CAPSULE 20 MG PO ×4 (07:48→20:55)
[2021-03-22] MEDS: Cyanocobalamin (Vitamin B-12) 1,000 MCG TABLET 1000 MCG PO (07:48)
[2021-03-22] MEDS: Hydrocortisone 2.5 % Rectal Cr 30 GM TUBE 1 APPL PR ×2 (07:48→20:47)
[2021-03-22] MEDS: Morphine Sulfate 2 MG/ML CARTRIDGE IVPUSH ×2 (07:51→20:55)
--- NOTE | 2021-03-22 12:03 | HO.PM.IMPN ---
Subjective Subjective Date of Service: 03/22/21 Interval History: Colitis Review of Systems Patient still has significant pain in the left lower quadrant area but she says she has good still feel little better and could taper tolerate at least some liquid diet today 1st time. Has some nausea but denies any vomiting Denies any new complaint of chest pain or shortness of breath or fever or chills Denies any cough Denies any weakness or numbness. Physical Exam Vital Signs: Vital Signs: Last Vital Signs Temp 97.2 F 03/22/21 08:00 Pulse 69 03/22/21 08:00 Resp 20 03/22/21 08:00 BP 102/57 L 03/22/21 08:00 Pulse Ox 97 03/22/21 08:00 Body Mass Index 33.0 Appearance: Alert.? Oriented X3.? not in distress.? Eyes: Pupils equal, round and reactive to light.? Sclera nonicteric.? ENT: Pharynx normal.? Moist mucous membranes. cvs: rrr, [id number] , no murmur res: clear to auscultation ,no rhonchii or wheezing abd: no rebound or guarding ,llq pain , bs present. ext pulses present , no cyanosis neuro: axo3 , nonfocal. Objective Data Active Medications Acetaminophen (Acetaminophen 325 Mg Tablet) 650 mg PO Q6H PRN PRN Reason: Pain, Severe (Pain Scale 7-10) Last Admin: 03/19/21 11:46 Dose: 650 mg Documented by: TOMEKA Cyanocobalamin (Cyanocobalamin (Vitamin B-12) 1,000 Mcg Tablet) 1,000 mcg PO DAILY [facility] Last Admin: 03/22/21 07:48 Dose: 1,000 mcg Documented by: COTEMA Dicyclomine HCl (Dicyclomine Hcl 10 Mg Capsule) 20 mg PO QIDACHS [facility] Last Admin: 03/22/21 11:11 Dose: 20 mg Documented by: COTEMA Hydrocortisone (Hydrocortisone 2.5 % Rectal Cr 30 Gm Tube) 1 appl [place] BID [facility] Last Admin: 03/22/21 07:48 Dose: 1 appl Documented by: COTEMA Hydroxyzine HCl (Hydroxyzine Hcl 10 Mg Tablet) 10 mg PO Q8H PRN PRN Reason: Anxiety Last Admin: 03/20/21 12:02 Dose: 10 mg Documented by: TOMEKA Levothyroxine Sodium (Levothyroxine Sodium 100 Mcg Tablet) 100 mcg PO DAILY@0630 [facility] Last Admin: 03/22/21 06:00 Dose: 100 mcg Documented by: HECTOR Methylprednisolone Sodium Succinate (Methylprednisolone Sod Succ 40 Mg/Ml Vial) 40 mg IVPUSH Q8H [facility] Last Admin: 03/22/21 11:12 Dose: 40 mg Documented by: COTEMA Morphine Sulfate (Morphine Sulfate 2 Mg/Ml Cartridge) 2 mg IVPUSH Q3H PRN; Protocol PRN Reason: Pain, Mild (Pain Scale 1-3) Last Admin: 03/22/21 07:51 Dose: 2 mg Documented by: COTEMA Ondansetron HCl (Ondansetron Hcl 4 Mg/2 Ml Vial) 4 mg IVPUSH Q8H PRN PRN Reason: Nausea Pharmacy Consult (Consult Rx Perform Med Rec) 1 each MISCELLANE ONCE PRN PRN Reason: Consult order Labs CBC & Chem 7: 03/19/21 05:23 03/22/21 06:12 Labs: Laboratory Results - last 24 hr 03/22/21 06:12 Anion Gap 16 Estim Creat Clear Calc 78.4 Estimated GFR > 60 Random Glucose 124 H Calcium 9.9 Microbiology Microbiology Results: Microbiology 03/19/21 09:45 Stool Culture - Final Stool Assessment and Plan (1) IBD (inflammatory bowel disease): Status: Acute Assessment and Plan: 1. Possible Reccurrent Colitis? VS? IBD flare ?: Lab imaging chemistry reviewed personally and interpreted: Leukocytosis thought to be secondary to steroid use-resolved. Normal lactic acid ED discussed the case with GI and started on IV steroids, will defer antibiotics since she already had 2 time antibiotic in last month or so. Will check stool studies-stool for cdiff and wbc neg Patient will be on clear liquid diet, Zofran, IV steroids 40 mg tid, iv morphine , ivf gentle. GI fu 2. Hypothyroidism:? continue levothyroxine. Quality Stroke Does the patient have a stroke diagnosis?: No VTE Prior VTE?: No VTE Risk Level:: Medical - moderate - high VTE Device Contraindication: N/A - Device Ordered VTE Drug Contraindication: N/A - Med Ordered
--- NOTE | 2021-03-22 12:42 | PM.EVENT ---
Event Note Date of Service: 03/22/21 Event Note: Pt notes mild improvement in abdominal pain. Tolerating clear liquid diet and afraid to advance diet since she had severe pain when she started a full liquid diet Passing small amount of gas and blood stained mucous. RECOMMENDATIONS: 1. continue iv steroids, dicyclomine 2. Pt encouraged to advance to a full liquid diet today and take small amounts of chicken noodle soup and lactose free diet today.
[2021-03-22] MEDS: hydrOXYzine HCL 10 MG TABLET PO (20:55)
[2021-03-23] MEDS: ondansetron HCL 4 MG/2 ML VIAL IVPUSH (00:04)
[2021-03-23] MEDS: Morphine Sulfate 2 MG/ML CARTRIDGE IVPUSH ×3 (00:04→08:00)
[2021-03-23] MEDS: methylPREDNISolone Sod Succ 40 MG/ML VIAL IVPUSH ×3 (03:41→18:09)
[2021-03-23 04:00] VITALS: BP 120/62; PULSE 55; RESP 16; TEMP 36.4; O2SAT 99
[2021-03-23] MEDS: Levothyroxine Sodium 100 MCG TABLET PO (05:55)
[2021-03-23 08:00] VITALS: BP 130/64; PULSE 55; RESP 18; RESP 20; TEMP 36.1; O2SAT 99
[2021-03-23] MEDS: Hydrocortisone 2.5 % Rectal Cr 30 GM TUBE 1 APPL PR ×2 (08:00→20:35)
[2021-03-23] MEDS: Dicyclomine HCl 10 MG CAPSULE 20 MG PO ×4 (08:00→20:33)
[2021-03-23] MEDS: Cyanocobalamin (Vitamin B-12) 1,000 MCG TABLET 1000 MCG PO (08:00)
--- NOTE | 2021-03-23 08:05 | HO.PM.IMPN ---
Subjective Subjective Date of Service: 03/23/21 Interval History: colitis Review of Systems has abd pain after white bread. Denies any new complaint of chest pain or shortness of breath or abdominal pain or fever or chills or nausea or vomiting Denies any cough Denies any weakness or numbness. Physical Exam Vital Signs: Vital Signs: Last Vital Signs Temp 97.5 F 03/23/21 04:00 Pulse 55 03/23/21 04:00 Resp 18 03/23/21 08:00 BP 120/62 03/23/21 04:00 Pulse Ox 99 03/23/21 04:00 Body Mass Index 33.0 Appearance: Alert.? Oriented X3.? not in distress.? Eyes: Pupils equal, round and reactive to light.? Sclera nonicteric.? ENT: Pharynx normal.? Moist mucous membranes. cvs: rrr, [id number] , no murmur res: clear to auscultation ,no rhonchii or wheezing abd: no rebound or guarding ,llq pain , bs present. ext pulses present , no cyanosis neuro: axo3 , nonfocal. Objective Data Active Medications Acetaminophen (Acetaminophen 325 Mg Tablet) 650 mg PO Q6H PRN PRN Reason: Pain, Severe (Pain Scale 7-10) Last Admin: 03/19/21 11:46 Dose: 650 mg Documented by: TOMEKA Cyanocobalamin (Cyanocobalamin (Vitamin B-12) 1,000 Mcg Tablet) 1,000 mcg PO DAILY [facility] Last Admin: 03/23/21 08:00 Dose: 1,000 mcg Documented by: COTEMA Dicyclomine HCl (Dicyclomine Hcl 10 Mg Capsule) 20 mg PO QIDACHS [facility] Last Admin: 03/23/21 08:00 Dose: 20 mg Documented by: COTEMA Hydrocortisone (Hydrocortisone 2.5 % Rectal Cr 30 Gm Tube) 1 appl [place] BID [facility] Last Admin: 03/23/21 08:00 Dose: 1 appl Documented by: COTEMA Hydroxyzine HCl (Hydroxyzine Hcl 10 Mg Tablet) 10 mg PO Q8H PRN PRN Reason: Anxiety Last Admin: 03/22/21 20:55 Dose: 10 mg Documented by: SUSANQC Levothyroxine Sodium (Levothyroxine Sodium 100 Mcg Tablet) 100 mcg PO DAILY@0630 [facility] Last Admin: 03/23/21 05:55 Dose: 100 mcg Documented by: IAIN Methylprednisolone Sodium Succinate (Methylprednisolone Sod Succ 40 Mg/Ml Vial) 40 mg IVPUSH Q8H [facility] Last Admin: 03/23/21 03:41 Dose: 40 mg Documented by: IAIN Morphine Sulfate (Morphine Sulfate 2 Mg/Ml Cartridge) 2 mg IVPUSH Q3H PRN; Protocol PRN Reason: Pain, Mild (Pain Scale 1-3) Last Admin: 03/23/21 08:00 Dose: 2 mg Documented by: DIPAK Ondansetron HCl (Ondansetron Hcl 4 Mg/2 Ml Vial) 4 mg IVPUSH Q8H PRN PRN Reason: Nausea Last Admin: 03/23/21 00:04 Dose: 4 mg Documented by: IAIN Pharmacy Consult (Consult Rx Perform Med Rec) 1 each MISCELLANE ONCE PRN PRN Reason: Consult order Labs CBC & Chem 7: 03/19/21 05:23 03/22/21 06:12 Microbiology Microbiology Results: Microbiology 03/19/21 09:45 Stool Culture - Final Stool Assessment and Plan (1) IBD (inflammatory bowel disease): Status: Acute Assessment and Plan: 1. Possible Reccurrent Colitis? VS? IBD flare ?: Lab imaging chemistry reviewed personally and interpreted: Leukocytosis thought to be secondary to steroid use-resolved. Normal lactic acid ED discussed the case with GI and started on IV steroids, will defer antibiotics since she already had 2 time antibiotic in last month or so. Will check stool studies-stool for cdiff and wbc neg Patient will be on clear liquid diet, Zofran, IV steroids 40 mg tid, iv morphine , ivf gentle. GI fu-continue above management. 2. Hypothyroidism:? continue levothyroxine. Quality Stroke Does the patient have a stroke diagnosis?: No VTE Prior VTE?: No VTE Risk Level:: Medical - moderate - high VTE Device Contraindication: N/A - Device Ordered VTE Drug Contraindication: N/A - Med Ordered
[2021-03-23 11:52] VITALS: BP 124/73; PULSE 65; RESP 20; TEMP 36.6; O2SAT 96
[2021-03-23 15:33] VITALS: BP 110/60; PULSE 69; RESP 18; TEMP 36.2; O2SAT 97
--- NOTE | 2021-03-23 16:59 | P.EN_ITS ---
Event Note Date of Service: 03/23/21 Event Note: Pt tried some white bread yesterday and noted worsening pain and c ramping after 2 hrs - switched back to a full liquid diet today. She would like to try taking some chicken noodle soup today. Passing small amount of? gas and mucous. RECOMMENDATIONS: 1.? continue iv steroids, dicyclomine 2.? She would like to try taking some chicken noodle soup today - diet switched to regular so patient can order the chicken noodle soup. Pt will continue to order remaining items from the full liquid diet menu and not order any additional solid food. 3. Consider repeat ABD CT scan tomorrow if no improvement in abdominal pain and unable to advance diet.
[2021-03-23 20:00] VITALS: BP 121/58; PULSE 51; RESP 18; TEMP 36.6; O2SAT 98
[2021-03-23 23:42] VITALS: BP 131/72; PULSE 50; RESP 16; TEMP 36; O2SAT 98
[2021-03-24] MEDS: methylPREDNISolone Sod Succ 40 MG/ML VIAL IVPUSH ×3 (02:44→20:57)
[2021-03-24 04:00] VITALS: BP 136/69; PULSE 52; RESP 18; TEMP 36.2; O2SAT 98
[2021-03-24] MEDS: Levothyroxine Sodium 100 MCG TABLET PO (06:18)
[2021-03-24 08:00] VITALS: BP 136/62; PULSE 57; RESP 17; TEMP 36.1; O2SAT 100
[2021-03-24] MEDS: Dicyclomine HCl 10 MG CAPSULE 20 MG PO ×4 (08:28→20:58)
[2021-03-24] MEDS: Acetaminophen 325 MG TABLET 650 MG PO (08:29)
[2021-03-24] MEDS: Cyanocobalamin (Vitamin B-12) 1,000 MCG TABLET 1000 MCG PO (08:30)
[2021-03-24 12:00] VITALS: BP 144/79; PULSE 55; RESP 16; TEMP 36.2; O2SAT 98
--- NOTE | 2021-03-24 13:26 | HO.PM.IMPN ---
Subjective Subjective Date of Service: 03/24/21 Interval History: colitis Review of Systems still has abd pain but says improving , did not bother extremely overnight. Denies any fever or chills or cough or phlegm or nausea or vomiting Could able to tolerate chicken noodle soup Physical Exam Vital Signs: Vital Signs: Last Vital Signs Temp 97.1 F 03/24/21 12:00 Pulse 55 03/24/21 12:00 Resp 16 03/24/21 12:00 BP 144/79 H 03/24/21 12:00 Pulse Ox 98 03/24/21 12:00 Body Mass Index 33.0 Alert.? Oriented X3.? not in distress.? Eyes: Pupils equal, round and reactive to light.? Sclera nonicteric.? ENT: Pharynx normal.? Moist mucous membranes. cvs: rrr, [id number] , no murmur res: clear to auscultation ,no rhonchii or wheezing abd: no rebound or guarding ,llq pain , bs present. ext pulses present , no cyanosis neuro: axo3 , nonfoca Objective Data Active Medications Acetaminophen (Acetaminophen 325 Mg Tablet) 650 mg PO Q6H PRN PRN Reason: Pain, Severe (Pain Scale 7-10) Last Admin: 03/24/21 08:29 Dose: 650 mg Documented by: ODALIS Cyanocobalamin (Cyanocobalamin (Vitamin B-12) 1,000 Mcg Tablet) 1,000 mcg PO DAILY [facility] Last Admin: 03/24/21 08:30 Dose: 1,000 mcg Documented by: ODALIS Dicyclomine HCl (Dicyclomine Hcl 10 Mg Capsule) 20 mg PO QIDACHS [facility] Last Admin: 03/24/21 11:53 Dose: 20 mg Documented by: ODALIS Hydrocortisone (Hydrocortisone 2.5 % Rectal Cr 30 Gm Tube) 1 appl [place] BID [facility] Last Admin: 03/24/21 08:30 Dose: Not Given Documented by: ODALIS Non-Admin Reason: Patient Refused Hydroxyzine HCl (Hydroxyzine Hcl 10 Mg Tablet) 10 mg PO Q8H PRN PRN Reason: Anxiety Last Admin: 03/22/21 20:55 Dose: 10 mg Documented by: IAIN Levothyroxine Sodium (Levothyroxine Sodium 100 Mcg Tablet) 100 mcg PO DAILY@0630 [facility] Last Admin: 03/24/21 06:18 Dose: 100 mcg Documented by: HECTOR Methylprednisolone Sodium Succinate (Methylprednisolone Sod Succ 40 Mg/Ml Vial) 40 mg IVPUSH Q8H [facility] Last Admin: 03/24/21 11:52 Dose: 40 mg Documented by: STEFANSC Morphine Sulfate (Morphine Sulfate 2 Mg/Ml Cartridge) 2 mg IVPUSH Q3H PRN; Protocol PRN Reason: Pain, Mild (Pain Scale 1-3) Last Admin: 03/23/21 08:00 Dose: 2 mg Documented by: COTEMA Ondansetron HCl (Ondansetron Hcl 4 Mg/2 Ml Vial) 4 mg IVPUSH Q8H PRN PRN Reason: Nausea Last Admin: 03/23/21 00:04 Dose: 4 mg Documented by: IAIN Pharmacy Consult (Consult Rx Perform Med Rec) 1 each MISCELLANE ONCE PRN PRN Reason: Consult order Labs CBC & Chem 7: 03/19/21 05:23 03/22/21 06:12 Assessment and Plan (1) IBD (inflammatory bowel disease): Status: Acute Assessment and Plan: 1. Possible Reccurrent Colitis? VS? IBD flare ?: Lab imaging chemistry reviewed personally and interpreted: Leukocytosis thought to be secondary to steroid use-resolved. Normal lactic acid ED discussed the case with GI and started on IV steroids, will defer antibiotics since she already had 2 time antibiotic in last month or so. Will check stool studies-stool for cdiff and wbc neg Patient will be on clear liquid diet, Zofran, IV steroids 40 mg tid, iv morphine , ivf gentle. GI fu-continue above management. Discussed with GI patient abdominal pain somewhat improving and she could able to tolerate some liquid diet, will continue to monitor if her per day patient condition worsen or have fever then will consider abdominal imaging. 2. Hypothyroidism:? continue levothyroxine. Gi prophylax: ppi Quality Stroke Does the patient have a stroke diagnosis?: No VTE Prior VTE?: No VTE Risk Level:: Medical - moderate - high VTE Device Contraindication: N/A - Device Ordered VTE Drug Contraindication: N/A - Med Ordered
--- NOTE | 2021-03-24 13:45 | PM.GIPN ---
Subjective Subjective Date of Service: 03/24/21 Interval History: tolerating diet better slowly Critical Care Time (minutes): 0 Physical Exam Vital Signs: Vital Signs: Last Vital Signs Temp 97.1 F 03/24/21 12:00 Pulse 55 03/24/21 12:00 Resp 16 03/24/21 12:00 BP 144/79 H 03/24/21 12:00 Pulse Ox 98 03/24/21 12:00 Body Mass Index 33.0 Const: General: cooperative Resp: Other: lungs clear Cardio: Other: normal s1 s2 GI: Other: mild tenderness to deep palpation over upper abdomen Objective Data Labs CBC & Chem 7: 03/19/21 05:23 03/22/21 06:12 Microbiology Microbiology Results: Microbiology 03/19/21 09:45 Stool Stool Culture - Final Procedures Date of Service Date of Service: 03/24/21 Progress Note: A&P Assessment and plan (1) Colitis: Status: Acute Assessment and Plan: slow improvement, cont steroids and dicyclomine hold off on ct for now as it is unlikely to alter therapy Fall Risk Details Current Medications: Current Medications Acetaminophen (Acetaminophen 325 Mg Tablet) 650 mg PO Q6H PRN PRN Reason: Pain, Severe (Pain Scale 7-10) Last Admin: 03/24/21 08:29 Dose: 650 mg Documented by: Cyanocobalamin (Cyanocobalamin (Vitamin B-12) 1,000 Mcg Tablet) 1,000 mcg PO DAILY [facility] Last Admin: 03/24/21 08:30 Dose: 1,000 mcg Documented by: Dicyclomine HCl (Dicyclomine Hcl 10 Mg Capsule) 20 mg PO QIDACHS [facility] Last Admin: 03/24/21 11:53 Dose: 20 mg Documented by: Hydrocortisone (Hydrocortisone 2.5 % Rectal Cr 30 Gm Tube) 1 appl [place] BID [facility] Last Admin: 03/24/21 08:30 Dose: Not Given Documented by: Hydroxyzine HCl (Hydroxyzine Hcl 10 Mg Tablet) 10 mg PO Q8H PRN PRN Reason: Anxiety Last Admin: 03/22/21 20:55 Dose: 10 mg Documented by: Levothyroxine Sodium (Levothyroxine Sodium 100 Mcg Tablet) 100 mcg PO DAILY@0630 [facility] Last Admin: 03/24/21 06:18 Dose: 100 mcg Documented by: Methylprednisolone Sodium Succinate (Methylprednisolone Sod Succ 40 Mg/Ml Vial) 40 mg IVPUSH Q8H [facility] Last Admin: 03/24/21 11:52 Dose: 40 mg Documented by: Morphine Sulfate (Morphine Sulfate 2 Mg/Ml Cartridge) 2 mg IVPUSH Q3H PRN; Protocol PRN Reason: Pain, Mild (Pain Scale 1-3) Last Admin: 03/23/21 08:00 Dose: 2 mg Documented by: Ondansetron HCl (Ondansetron Hcl 4 Mg/2 Ml Vial) 4 mg IVPUSH Q8H PRN PRN Reason: Nausea Last Admin: 03/23/21 00:04 Dose: 4 mg Documented by: Pharmacy Consult (Consult Rx Perform Med Rec) 1 each MISCELLANE ONCE PRN PRN Reason: Consult order Time Spent With Patient Time: Total time spent is greater than 50% in coordination of care (as documented) at patient's floor/unit and/or counseling patient: Time with patient: 15 - 24 minutes Quality Stroke Does the patient have a stroke diagnosis?: No VTE Prior VTE?: No VTE Risk Level:: Medical - moderate - high VTE Device Contraindication: N/A - Device Ordered VTE Drug Contraindication: N/A - Med Ordered
[2021-03-24] MEDS: Morphine Sulfate 2 MG/ML CARTRIDGE IVPUSH (13:52)
--- NOTE | 2021-03-24 15:30 | MHC.CM.PN ---
EMR REVIEWED, PER MULTIDISCIPLINARY ROUNDS PT IS SLOWLY IMPROVING, PT DOES REMAIN ON IV SOLU-MEDROL AND IV PAIN MEDICATION, ANTICIPATE D/C 1-2 DAYS. D/C PLAN: HOME SELF-CARE, PT WILL CALL FAMILY FOR TRANSPORT.
[2021-03-24 15:47] VITALS: BP 113/59; PULSE 54; RESP 18; TEMP 36.4; O2SAT 97
[2021-03-24] MEDS: Omeprazole 20 MG CAPSULE.DR PO (17:05)
[2021-03-24 19:37] VITALS: BP 119/68; PULSE 55; RESP 16; TEMP 36.1; O2SAT 98
[2021-03-24] MEDS: Hydrocortisone 2.5 % Rectal Cr 30 GM TUBE 1 APPL PR (20:57)
[2021-03-24 23:49] VITALS: BP 132/60; PULSE 42; RESP 16; TEMP 35.8; O2SAT 98
[2021-03-25] MEDS: methylPREDNISolone Sod Succ 40 MG/ML VIAL IVPUSH ×3 (03:19→18:43)
[2021-03-25 03:44] VITALS: BP 129/69; PULSE 55; RESP 16; TEMP 36.1; O2SAT 98
[2021-03-25] MEDS: Omeprazole 20 MG CAPSULE.DR PO ×2 (06:08→16:49)
[2021-03-25] MEDS: Levothyroxine Sodium 100 MCG TABLET PO (06:08)
[2021-03-25 06:09] LABS: Hematocrit 43.4 % (37-47); Hemoglobin 14.9 g/dl (12.0-16.0); Mean Corpuscular HGB Conc 34.3 g/dl (31.0-35.0); Mean Corpuscular Hemoglobin 31.4 pg (27.0-33.0); Mean Corpuscular Volume 91.6 fL (80-98); Mean Platelet Volume 9.5 fL (9.4-12.3); Platelet Count 421 X10*3/uL (160-400); Red Blood Count 4.74 X10*6/uL (4.20-5.50); Red Cell Distribution Width 11.9 % (11.0-16.0); White Blood Count 14.1 X10*3/uL (4.8-10.8)
[2021-03-25 06:26] LABS: Anion Gap 14 (12-20); Blood Urea Nitrogen 15 mg/dL (9-16); Calcium 9.7 mg/dL (8.4-10.2); Carbon Dioxide 28 mmol/L (22-29); Chloride 103 mmol/L (96-108); Creatinine Clr Calc Pharmacy 82.5; Estimated Glomerular Filt Rate > 60; Glucose Random 129 mg/dL (60-115); Potassium 4.5 mmol/L (3.3-5.1); Sodium 140 mmol/L (135-145)
[2021-03-25 07:32] VITALS: BP 138/77; PULSE 66; RESP 18; TEMP 36.4; O2SAT 100
[2021-03-25] MEDS: Cyanocobalamin (Vitamin B-12) 1,000 MCG TABLET 1000 MCG PO (07:42)
[2021-03-25] MEDS: Hydrocortisone 2.5 % Rectal Cr 30 GM TUBE 1 APPL PR ×2 (07:42→19:57)
[2021-03-25] MEDS: Dicyclomine HCl 10 MG CAPSULE 20 MG PO ×4 (07:42→19:57)
[2021-03-25 11:43] VITALS: BP 135/71; PULSE 56; RESP 18; TEMP 37; O2SAT 98
--- NOTE | 2021-03-25 13:49 | PM.GIPN ---
Subjective Subjective Date of Service: 03/25/21 Interval History: tolerated scrambled eggs this am Critical Care Time (minutes): 0 Physical Exam Vital Signs: Vital Signs: Last Vital Signs Temp 98.6 F 03/25/21 11:43 Pulse 56 03/25/21 11:43 Resp 18 03/25/21 11:43 BP 135/71 03/25/21 11:43 Pulse Ox 98 03/25/21 11:43 Body Mass Index 33.0 Const: General: cooperative Resp: Other: lungs are clear Cardio: Other: normal s1 s2 GI: Other: soft, mild tenderness over epigastic area Objective Data Labs CBC & Chem 7: 03/25/21 06:01 03/25/21 06:01 Microbiology Microbiology Results: Microbiology 03/19/21 09:45 Stool Stool Culture - Final Procedures Date of Service Date of Service: 03/25/21 Progress Note: A&P Assessment and plan (1) Colitis: Status: Acute Assessment and Plan: advised pt to broaden diet as able continue steroids and dicyclomine labs reviewed, elevated glucose and wbc likely due to steroids Fall Risk Details Current Medications: Current Medications Acetaminophen (Acetaminophen 325 Mg Tablet) 650 mg PO Q6H PRN PRN Reason: Pain, Severe (Pain Scale 7-10) Last Admin: 03/24/21 08:29 Dose: 650 mg Documented by: Cyanocobalamin (Cyanocobalamin (Vitamin B-12) 1,000 Mcg Tablet) 1,000 mcg PO DAILY [facility] Last Admin: 03/25/21 07:42 Dose: 1,000 mcg Documented by: Dicyclomine HCl (Dicyclomine Hcl 10 Mg Capsule) 20 mg PO QIDACHS [facility] Last Admin: 03/25/21 12:29 Dose: 20 mg Documented by: Hydrocortisone (Hydrocortisone 2.5 % Rectal Cr 30 Gm Tube) 1 appl [place] BID [facility] Last Admin: 03/25/21 07:42 Dose: 1 appl Documented by: Hydroxyzine HCl (Hydroxyzine Hcl 10 Mg Tablet) 10 mg PO Q8H PRN PRN Reason: Anxiety Last Admin: 03/22/21 20:55 Dose: 10 mg Documented by: Levothyroxine Sodium (Levothyroxine Sodium 100 Mcg Tablet) 100 mcg PO DAILY@0630 [facility] Last Admin: 03/25/21 06:08 Dose: 100 mcg Documented by: Methylprednisolone Sodium Succinate (Methylprednisolone Sod Succ 40 Mg/Ml Vial) 40 mg IVPUSH Q8H [facility] Last Admin: 03/25/21 12:29 Dose: 40 mg Documented by: Morphine Sulfate (Morphine Sulfate 2 Mg/Ml Cartridge) 2 mg IVPUSH Q3H PRN; Protocol PRN Reason: Pain, Mild (Pain Scale 1-3) Last Admin: 03/24/21 13:52 Dose: 2 mg Documented by: Omeprazole (Omeprazole 20 Mg Capsule.Dr) 20 mg PO BID@0630,1630 [facility] Last Admin: 03/25/21 06:08 Dose: 20 mg Documented by: Ondansetron HCl (Ondansetron Hcl 4 Mg/2 Ml Vial) 4 mg IVPUSH Q8H PRN PRN Reason: Nausea Last Admin: 03/23/21 00:04 Dose: 4 mg Documented by: Pharmacy Consult (Consult Rx Perform Med Rec) 1 each MISCELLANE ONCE PRN PRN Reason: Consult order Time Spent With Patient Time: Total time spent is greater than 50% in coordination of care (as documented) at patient's floor/unit and/or counseling patient: Time with patient: 15 - 24 minutes Quality Stroke Does the patient have a stroke diagnosis?: No VTE Prior VTE?: No VTE Risk Level:: Medical - moderate - high VTE Device Contraindication: N/A - Device Ordered VTE Drug Contraindication: N/A - Med Ordered
--- NOTE | 2021-03-25 14:42 | HO.PM.IMPN ---
Subjective Subjective Date of Service: 03/25/21 Interval History: Seen in f/u for colitis., still with pain, tolerated scramble eggs this morning. Review of Systems Gen: no fever Resp: no sob, no cough CV: no chest, no BROWN, no leg edema GI: No n/v, + abd pain Neuro: No confusion Physical Exam Vital Signs: Vital Signs: Last Vital Signs Temp 98.6 F 03/25/21 11:43 Pulse 56 03/25/21 11:43 Resp 18 03/25/21 11:43 BP 135/71 03/25/21 11:43 Pulse Ox 98 03/25/21 11:43 Body Mass Index 33.0 General: AO X 3, no acute distress Resp: CTA bilateral CVS: S1,S2,RRR GI: +BS, NT, no distention Skin: No rash Neuro: motor grossly intact Psych: appropriate affect Objective Data Active Medications Acetaminophen (Acetaminophen 325 Mg Tablet) 650 mg PO Q6H PRN PRN Reason: Pain, Severe (Pain Scale 7-10) Last Admin: 03/24/21 08:29 Dose: 650 mg Documented by: ODALIS Cyanocobalamin (Cyanocobalamin (Vitamin B-12) 1,000 Mcg Tablet) 1,000 mcg PO DAILY [facility] Last Admin: 03/25/21 07:42 Dose: 1,000 mcg Documented by: KVNG Dicyclomine HCl (Dicyclomine Hcl 10 Mg Capsule) 20 mg PO QIDACHS [facility] Last Admin: 03/25/21 12:29 Dose: 20 mg Documented by: KVNG Hydrocortisone (Hydrocortisone 2.5 % Rectal Cr 30 Gm Tube) 1 appl [place] BID [facility] Last Admin: 03/25/21 07:42 Dose: 1 appl Documented by: KVNG Hydroxyzine HCl (Hydroxyzine Hcl 10 Mg Tablet) 10 mg PO Q8H PRN PRN Reason: Anxiety Last Admin: 03/22/21 20:55 Dose: 10 mg Documented by: IAIN Levothyroxine Sodium (Levothyroxine Sodium 100 Mcg Tablet) 100 mcg PO DAILY@0630 [facility] Last Admin: 03/25/21 06:08 Dose: 100 mcg Documented by: SUSAN Methylprednisolone Sodium Succinate (Methylprednisolone Sod Succ 40 Mg/Ml Vial) 40 mg IVPUSH Q8H [facility] Last Admin: 03/25/21 12:29 Dose: 40 mg Documented by: DABYolis Morphine Sulfate (Morphine Sulfate 2 Mg/Ml Cartridge) 2 mg IVPUSH Q3H PRN; Protocol PRN Reason: Pain, Mild (Pain Scale 1-3) Last Admin: 03/24/21 13:52 Dose: 2 mg Documented by: ODALIS Omeprazole (Omeprazole 20 Mg Capsule.Dr) 20 mg PO BID@0630,1630 [facility] Last Admin: 03/25/21 06:08 Dose: 20 mg Documented by: SUSAN Ondansetron HCl (Ondansetron Hcl 4 Mg/2 Ml Vial) 4 mg IVPUSH Q8H PRN PRN Reason: Nausea Last Admin: 03/23/21 00:04 Dose: 4 mg Documented by: IAIN Pharmacy Consult (Consult Rx Perform Med Rec) 1 each MISCELLANE ONCE PRN PRN Reason: Consult order Labs CBC & Chem 7: 03/25/21 06:01 03/25/21 06:01 Labs: Laboratory Results - last 24 hr 03/25/21 03/25/21 06:01 06:01 MCV 91.6 MCH 31.4 MCHC 34.3 RDW 11.9 Plt Count 421 H MPV 9.5 Absolute Nucleated RBC 0.000 Nucleated RBC % (auto) 0.0 Anion Gap 14 Estim Creat Clear Calc 82.5 Estimated GFR > 60 Random Glucose 129 H Calcium 9.7 Assessment and Plan (1) IBD (inflammatory bowel disease): Status: Acute Assessment and Plan: 1. Possible Reccurrent Colitis? VS? IBD flare Improving on IV steroid, advance diet, if tolerate diet, will chane to oral steroid tomorrow for discharge 2. Hypothyroidism:? continue levothyroxine. Gi prophylax: ppi Quality Stroke Does the patient have a stroke diagnosis?: No VTE Prior VTE?: No VTE Risk Level:: Medical - moderate - high VTE Device Contraindication: N/A - Device Ordered VTE Drug Contraindication: N/A - Med Ordered
[2021-03-25 15:49] VITALS: BP 113/55; PULSE 75; RESP 18; TEMP 36.4; O2SAT 98
[2021-03-25 20:00] VITALS: BP 112/57; PULSE 64; RESP 19; TEMP 36.4; O2SAT 96
[2021-03-26] VITALS: BP 114/68; PULSE 56; RESP 17; TEMP 36.6; O2SAT 98
[2021-03-26] MEDS: methylPREDNISolone Sod Succ 40 MG/ML VIAL IVPUSH ×3 (02:28→18:45)
[2021-03-26 04:00] VITALS: BP 109/55; PULSE 60; RESP 17; TEMP 36.6; O2SAT 99
[2021-03-26] MEDS: Omeprazole 20 MG CAPSULE.DR PO ×2 (05:53→18:46)
[2021-03-26] MEDS: Levothyroxine Sodium 100 MCG TABLET PO (05:53)
[2021-03-26 07:49] VITALS: BP 105/59; PULSE 60; RESP 18; TEMP 36.4; O2SAT 98
[2021-03-26] MEDS: Cyanocobalamin (Vitamin B-12) 1,000 MCG TABLET 1000 MCG PO (08:34)
[2021-03-26] MEDS: Hydrocortisone 2.5 % Rectal Cr 30 GM TUBE 1 APPL PR ×2 (08:34→21:00)
[2021-03-26] MEDS: Dicyclomine HCl 10 MG CAPSULE 20 MG PO ×4 (08:34→21:00)
--- NOTE | 2021-03-26 09:29 | HO.PM.IMPN ---
Subjective Subjective Date of Service: 03/26/21 Interval History: Seen in f/u for colitis, pain is better, tolerating soft diet. No BM in 7 days, Review of Systems no fever,\ constipation, abdominal pain Physical Exam Vital Signs: Vital Signs: Last Vital Signs Temp 97.6 F 03/26/21 07:49 Pulse 60 03/26/21 07:49 Resp 18 03/26/21 07:49 BP 105/59 L 03/26/21 07:49 Pulse Ox 98 03/26/21 07:49 Body Mass Index 33.0 General: AO X 3, no acute distress Resp: CTA bilateral CVS: S1,S2,RRR GI: +BS, mild upper abdominal tenderness, no distention Skin: No rash Neuro: motor grossly intact Psych: appropriate affect Objective Data Active Medications Acetaminophen (Acetaminophen 325 Mg Tablet) 650 mg PO Q6H PRN PRN Reason: Pain, Severe (Pain Scale 7-10) Last Admin: 03/24/21 08:29 Dose: 650 mg Documented by: ODALIS Cyanocobalamin (Cyanocobalamin (Vitamin B-12) 1,000 Mcg Tablet) 1,000 mcg PO DAILY [facility] Last Admin: 03/26/21 08:34 Dose: 1,000 mcg Documented by: KAMLESH Dicyclomine HCl (Dicyclomine Hcl 10 Mg Capsule) 20 mg PO QIDACHS [facility] Last Admin: 03/26/21 08:34 Dose: 20 mg Documented by: KAMLESH Hydrocortisone (Hydrocortisone 2.5 % Rectal Cr 30 Gm Tube) 1 appl [place] BID [facility] Last Admin: 03/26/21 08:34 Dose: 1 appl Documented by: KAMLESH Hydroxyzine HCl (Hydroxyzine Hcl 10 Mg Tablet) 10 mg PO Q8H PRN PRN Reason: Anxiety Last Admin: 03/22/21 20:55 Dose: 10 mg Documented by: IAIN Levothyroxine Sodium (Levothyroxine Sodium 100 Mcg Tablet) 100 mcg PO DAILY@0630 [facility] Last Admin: 03/26/21 05:53 Dose: 100 mcg Documented by: SUSAN Methylprednisolone Sodium Succinate (Methylprednisolone Sod Succ 40 Mg/Ml Vial) 40 mg IVPUSH Q8H [facility] Last Admin: 03/26/21 02:28 Dose: 40 mg Documented by: SUSAN Omeprazole (Omeprazole 20 Mg Capsule.) 20 mg PO BID@0630,8983 [facility] Last Admin: 03/26/21 05:53 Dose: 20 mg Documented by: SUSAN Ondansetron HCl (Ondansetron Hcl 4 Mg/2 Ml Vial) 4 mg IVPUSH Q8H PRN PRN Reason: Nausea Last Admin: 03/23/21 00:04 Dose: 4 mg Documented by: IAIN Pharmacy Consult (Consult Rx Perform Med Rec) 1 each MISCELLANE ONCE PRN PRN Reason: Consult order Labs CBC & Chem 7: 03/25/21 06:01 03/25/21 06:01 Assessment and Plan (1) IBD (inflammatory bowel disease): Status: Acute Assessment and Plan: 1. Possible Reccurrent Colitis? VS? IBD flare Improving on IV steroid, advancing diet, will attempt transition to oral Prednisone with GI direction 2. Hypothyroidism:? continue levothyroxine. Gi prophylax: ppi, possibly home later today Quality Stroke Does the patient have a stroke diagnosis?: No VTE Prior VTE?: No VTE Risk Level:: Medical - moderate - high VTE Device Contraindication: N/A - Device Ordered VTE Drug Contraindication: N/A - Med Ordered
--- NOTE | 2021-03-26 10:55 | P.CDIC_ITS ---
CDI Concurrent Query Documentation Clarification: PHYSICIAN'S DOCUMENTATION REQUEST Date of Query: 03/26/21 1056 Patient Name: Faby Sheriff Admit Date: 03/18/21 Dear Doctor, Please review the following and provide your response in the progress notes. Clinical Indicators: Current documentation includes a diagnosis of colitis. Additional clinical indicators from the record include: Risk Factors/Clinical Indicators/Treatments per GI: Colitis consistent with inflammatory bowel disease Per H&P: Possible Colitis vs IBD flare If possible, please provide additional specificity regarding the type of colitis: * Infectious ? indicate known or suspected organism * Bacterial enteritis * C. Diff or other * Viral enteritis * Ischemic ? indicate if acute, subacute, or chronic * Ulcerative - indicate site (left, proctitis, rectosigmoid, pancolitis, etc.) and any associated complications (bleeding, obstruction, fistula, abscess, etc.) * Non-infectious - indicate type such as toxic, allergic, dietetic, eosinophilic, etc.) * Other ? please specify * Unable to determine Use of terms such as suspected, likely, concern for, or probable (associated with a specific diagnosis that is being evaluated, monitored, or treated as if it exists) are acceptable and can be coded in the inpatient setting, when documented at the time of discharge. Thank you, Natalia Rucker RN Extension: [phone] Please use your independent medical judgment in providing your response. THIS QUERY IS PART OF THE PERMANENT MEDICAL RECORD Provider Response: Other Other Diagnosis: Inflamatory colitis --unspecified as no biopsy
[2021-03-26 12:00] VITALS: BP 124/67; PULSE 62; RESP 18; TEMP 36.4; O2SAT 98
--- NOTE | 2021-03-26 12:35 | P.PNGI_ITS ---
Subjective Subjective Date of Service: 03/26/21 Interval History: Feeling somewhat better with definitely less abdominal discomfort. Passing a little gas but no BM's. She is still getting urgency. She is taking po's. Denies N/V. Critical Care Time (minutes): 0 Physical Exam Vital Signs: Vital Signs: Last Vital Signs Temp 97.5 F 03/26/21 12:00 Pulse 62 03/26/21 12:00 Resp 18 03/26/21 12:00 BP 124/67 03/26/21 12:00 Pulse Ox 98 03/26/21 12:00 Body Mass Index 33.0 Const: General: cooperative, healthy appearing, comfortable and no acute distress GI: Other: Abd is soft, nondistended, + BS, and only minimal tenderness in the epigastric area-no mass/rebound/guarding Objective Data Labs CBC & Chem 7: 03/25/21 06:01 03/25/21 06:01 Microbiology Microbiology Results: Microbiology 03/19/21 09:45 Stool Stool Culture - Final Procedures Date of Service Date of Service: 03/26/21 Progress Note: A&P Assessment and plan (1) IBD (inflammatory bowel disease): Status: Acute Assessment and Plan: Imp: Colitis-probable Crohn's given the rectal sparing on the very limited colonoscopy. Clinically improving on IV steroids. Rec: Continue diet, observation, change to po prednisone in AM 03/27, F/U labs with ESR and CRP. Possible discharge 03/27 if tolerating food and clinically stable. I will reassess her on 03/27. D/W patient and she is comfortable with this plan. D/W Dr. Ratliff. Thanks Fall Risk Details Current Medications: Current Medications Acetaminophen (Acetaminophen 325 Mg Tablet) 650 mg PO Q6H PRN PRN Reason: Pain, Severe (Pain Scale 7-10) Last Admin: 03/24/21 08:29 Dose: 650 mg Documented by: Cyanocobalamin (Cyanocobalamin (Vitamin B-12) 1,000 Mcg Tablet) 1,000 mcg PO DAILY [facility] Last Admin: 03/26/21 08:34 Dose: 1,000 mcg Documented by: Dicyclomine HCl (Dicyclomine Hcl 10 Mg Capsule) 20 mg PO QIDACHS [facility] Last Admin: 03/26/21 08:34 Dose: 20 mg Documented by: Hydrocortisone (Hydrocortisone 2.5 % Rectal Cr 30 Gm Tube) 1 appl [place] BID [facility] Last Admin: 03/26/21 08:34 Dose: 1 appl Documented by: Hydroxyzine HCl (Hydroxyzine Hcl 10 Mg Tablet) 10 mg PO Q8H PRN PRN Reason: Anxiety Last Admin: 03/22/21 20:55 Dose: 10 mg Documented by: Levothyroxine Sodium (Levothyroxine Sodium 100 Mcg Tablet) 100 mcg PO DAILY@0630 [facility] Last Admin: 03/26/21 05:53 Dose: 100 mcg Documented by: Methylprednisolone Sodium Succinate (Methylprednisolone Sod Succ 40 Mg/Ml Vial) 40 mg IVPUSH Q8H [facility] Last Admin: 03/26/21 10:24 Dose: 40 mg Documented by: Omeprazole (Omeprazole 20 Mg Capsule.) 20 mg PO BID@0630,1630 [facility] Last Admin: 03/26/21 05:53 Dose: 20 mg Documented by: Ondansetron HCl (Ondansetron Hcl 4 Mg/2 Ml Vial) 4 mg IVPUSH Q8H PRN PRN Reason: Nausea Last Admin: 03/23/21 00:04 Dose: 4 mg Documented by: Pharmacy Consult (Consult Rx Perform Med Rec) 1 each MISCELLANE ONCE PRN PRN Reason: Consult order Time Spent With Patient Time: Total time spent is greater than 50% in coordination of care (as documented) at patient's floor/unit and/or counseling patient: Time with patient: 15 - 24 minutes Quality Stroke Does the patient have a stroke diagnosis?: No VTE Prior VTE?: No VTE Risk Level:: Medical - moderate - high VTE Device Contraindication: N/A - Device Ordered VTE Drug Contraindication: N/A - Med Ordered
[2021-03-26 15:15] VITALS: BP 133/75; PULSE 81; RESP 18; TEMP 36.4; O2SAT 95
[2021-03-26 19:04] VITALS: BP 136/68; PULSE 65; RESP 18; TEMP 36.6; O2SAT 98
[2021-03-27] VITALS (8 sets, daily range): BP systolic 102–156; BP diastolic 55–75; PULSE 52–84; RESP 17–20; TEMP 36.1–36.4; O2SAT 96–99
[2021-03-27 05:51] LABS: MANUAL DIFF FLAG NO
[2021-03-27 05:54] LABS: Basophils Percent Auto 0.1 % (0-2); Hematocrit 45.9 % (37-47); Hemoglobin 15.2 g/dl (12.0-16.0); Imm Gran Pct Auto 1.5 % (0.0-0.4); Lymphocytes Absolute Auto 1.8 X10*3/uL (1.2-4.9); Lymphocytes Percent Auto 8.8 % (20-40); Mean Corpuscular HGB Conc 33.1 g/dl (31.0-35.0); Mean Corpuscular Hemoglobin 30.8 pg (27.0-33.0); Mean Corpuscular Volume 93.1 fL (80-98); Mean Platelet Volume 9.9 fL (9.4-12.3); Monocytes Absolute Auto 0.7 X10*3/uL (0.1-1.2); Monocytes Percent Auto 3.3 % (2-11); Neutrophils Absolute Auto 17.7 X10*3/uL (2.0-8.3); Neutrophils Percent Auto 86.3 % (45-73); Platelet Count 396 X10*3/uL (160-400); Red Blood Count 4.93 X10*6/uL (4.20-5.50); Red Cell Distribution Width 12.1 % (11.0-16.0); White Blood Count 20.6 X10*3/uL (4.8-10.8)
[2021-03-27 06:12] LABS: Anion Gap 13 (12-20); Blood Urea Nitrogen 20 mg/dL (9-16); C Reactive Protein 0.07 mg/dL (< or = 0.50); Calcium 9.7 mg/dL (8.4-10.2); Carbon Dioxide 28 mmol/L (22-29); Chloride 103 mmol/L (96-108); Creatinine Clr Calc Pharmacy 83.5; Estimated Glomerular Filt Rate > 60; Glucose Fasting 114 mg/dL (60-99); Potassium 4.3 mmol/L (3.3-5.1); Sodium 140 mmol/L (135-145)
[2021-03-27] MEDS: Levothyroxine Sodium 100 MCG TABLET PO (06:19)
[2021-03-27] MEDS: Omeprazole 20 MG CAPSULE.DR PO ×2 (06:19→16:12)
[2021-03-27 06:26] LABS: Erythrocyte Sedimentation Rate 5 MM/HR (0-20)
[2021-03-27] MEDS: Dicyclomine HCl 10 MG CAPSULE 20 MG PO ×4 (07:59→20:04)
[2021-03-27] MEDS: Cyanocobalamin (Vitamin B-12) 1,000 MCG TABLET 1000 MCG PO (08:00)
[2021-03-27] MEDS: predniSONE 20 MG TABLET 40 MG PO (08:00)
[2021-03-27] MEDS: Hydrocortisone 2.5 % Rectal Cr 30 GM TUBE 1 APPL PR ×2 (08:01→20:04)
--- NOTE | 2021-03-27 10:47 | P.PNIM_ITS ---
Subjective Subjective Date of Service: 03/27/21 Interval History: Seen in follow-up for inflammatory colitis. She has persistent pain although better. She is over seemed to be tolerating soft diet. She has not had a bowel movement and nearly 7 days. But at the same that has not been eating all that much. Review of Systems No fever or chill. Abdominal pain, constipation. Physical Exam Vital Signs: Vital Signs: Last Vital Signs Temp 97.5 F 03/27/21 08:00 Pulse 67 03/27/21 08:00 Resp 18 03/27/21 08:00 BP 123/68 03/27/21 08:00 Pulse Ox 99 03/27/21 08:00 Body Mass Index 33.0 General: AO X 3, no acute distress Resp: CTA bilateral CVS: S1,S2,RRR GI: +BS, mild tenderness Skin: No rash Neuro: motor grossly intact Psych: appropriate affect Objective Data Active Medications Acetaminophen (Acetaminophen 325 Mg Tablet) 650 mg PO Q6H PRN PRN Reason: Pain, Severe (Pain Scale 7-10) Last Admin: 03/24/21 08:29 Dose: 650 mg Documented by: ODALIS Cyanocobalamin (Cyanocobalamin (Vitamin B-12) 1,000 Mcg Tablet) 1,000 mcg PO DAILY [facility] Last Admin: 03/27/21 08:00 Dose: 1,000 mcg Documented by: KAMLESH Dicyclomine HCl (Dicyclomine Hcl 10 Mg Capsule) 20 mg PO QIDACHS [facility] Last Admin: 03/27/21 07:59 Dose: 20 mg Documented by: KAMLESH Hydrocortisone (Hydrocortisone 2.5 % Rectal Cr 30 Gm Tube) 1 appl [place] BID [facility] Last Admin: 03/27/21 08:01 Dose: 1 appl Documented by: KAMLESH Hydroxyzine HCl (Hydroxyzine Hcl 10 Mg Tablet) 10 mg PO Q8H PRN PRN Reason: Anxiety Last Admin: 03/22/21 20:55 Dose: 10 mg Documented by: IAIN Levothyroxine Sodium (Levothyroxine Sodium 100 Mcg Tablet) 100 mcg PO DAILY@0630 [facility] Last Admin: 03/27/21 06:19 Dose: 100 mcg Documented by: FEDERICO Omeprazole (Omeprazole 20 Mg Capsule.) 20 mg PO BID@0630,1630 [facility] Last Admin: 03/27/21 06:19 Dose: 20 mg Documented by: FEDERICO Ondansetron HCl (Ondansetron Hcl 4 Mg/2 Ml Vial) 4 mg IVPUSH Q8H PRN PRN Reason: Nausea Last Admin: 03/23/21 00:04 Dose: 4 mg Documented by: IAIN Pharmacy Consult (Consult Rx Perform Med Rec) 1 each MISCELLANE ONCE PRN PRN Reason: Consult order Prednisone (Prednisone 20 Mg Tablet) 40 mg PO DAILY [facility] Last Admin: 03/27/21 08:00 Dose: 40 mg Documented by: KAMLESH Labs CBC & Chem 7: 03/27/21 05:39 03/27/21 05:39 Labs: Laboratory Results - last 24 hr 03/27/21 03/27/21 03/27/21 05:39 05:39 05:39 MCV 93.1 MCH 30.8 MCHC 33.1 RDW 12.1 Plt Count 396 MPV 9.9 Immature Gran % (Auto) 1.5 H Neut % (Auto) 86.3 H Lymph % (Auto) 8.8 L [place] % (Auto) 3.3 Eos % (Auto) 0.0 Baso % (Auto) 0.1 Lymph # (Auto) 1.8 [place] # (Auto) 0.7 Eos # (Auto) 0.0 Baso # (Auto) 0.0 Abs Immat Gran (auto) 0.30 H Absolute Neuts (auto) 17.7 H Absolute Nucleated RBC 0.000 Nucleated RBC % (auto) 0.0 ESR 5 Anion Gap 13 Estim Creat Clear Calc 83.5 Estimated GFR > 60 Fasting Glucose 114 H Calcium 9.7 C-Reactive Protein 0.07 Assessment and Plan (1) IBD (inflammatory bowel disease): Status: Acute Assessment and Plan: 1. Possible Reccurrent Colitis? VS? IBD flare Improving on IV steroid, transitioned to oral steroid today, advancing diet 2. Hypothyroidism:? continue levothyroxine. Gi prophylax: ppi, possibly home later today Leukocytosis--d/t steroid , monitor Quality Stroke Does the patient have a stroke diagnosis?: No VTE Prior VTE?: No VTE Risk Level:: Medical - moderate - high VTE Device Contraindication: N/A - Device Ordered VTE Drug Contraindication: N/A - Med Ordered
--- NOTE | 2021-03-27 15:52 | P.PNGI_ITS ---
Subjective Subjective Date of Service: 03/27/21 Interval History: She reports that she is continuing to feel better. Tolerating food. Much less abdominal discomfort. Passing gas, but her main concern is still no BM and the continued sense of urgency. Critical Care Time (minutes): 0 Physical Exam Vital Signs: Vital Signs: Last Vital Signs Temp 97.0 F 03/27/21 15:33 Pulse 79 03/27/21 15:33 Resp 18 03/27/21 15:33 BP 118/66 03/27/21 15:33 Pulse Ox 96 03/27/21 15:33 Body Mass Index 33.0 Const: General: cooperative, healthy appearing, comfortable, no acute distress, well developed and alert GI: Other: Abdomen is soft, nondistended, + BS, nontender, no mass, no rebound/guarding Objective Data Labs CBC & Chem 7: 03/27/21 05:39 03/27/21 05:39 Labs: Laboratory Results - last 24 hr 03/27/21 03/27/21 03/27/21 05:39 05:39 05:39 WBC 20.6 H RBC 4.93 Hgb 15.2 Hct 45.9 MCV 93.1 MCH 30.8 MCHC 33.1 RDW 12.1 Plt Count 396 MPV 9.9 Immature Gran % (Auto) 1.5 H Neut % (Auto) 86.3 H Lymph % (Auto) 8.8 L [place] % (Auto) 3.3 Eos % (Auto) 0.0 Baso % (Auto) 0.1 Lymph # (Auto) 1.8 [place] # (Auto) 0.7 Eos # (Auto) 0.0 Baso # (Auto) 0.0 Abs Immat Gran (auto) 0.30 H Absolute Neuts (auto) 17.7 H Absolute Nucleated RBC 0.000 Nucleated RBC % (auto) 0.0 ESR 5 Sodium 140 Potassium 4.3 Chloride 103 Carbon Dioxide 28 Anion Gap 13 BUN 20 H Creatinine 0.76 Estim Creat Clear Calc 83.5 Estimated GFR > 60 Fasting Glucose 114 H Calcium 9.7 C-Reactive Protein 0.07 Microbiology Microbiology Results: Microbiology 03/19/21 09:45 Stool Stool Culture - Final Procedures Date of Service Date of Service: 03/27/21 Progress Note: A&P Assessment and plan (1) IBD (inflammatory bowel disease): Status: Acute Assessment and Plan: Imp: Colitis, probable Crohn's. She is continuing to clinically improve based on her exam, normalization of her ESR/CRP, and her overall improved symptoms. The main issue is no BM, but hopefully that'll resolve as she continues to eat. Rec: Continue oral prednisone and observation. Hopefully discharge tomorrow if things remain stable and if she has a BM. Will then do a prednisone taper at home(she has the Rx for that already) and F/U in office. She is comfortable with that plan. I'm on all weekend if issues or questions arise. Thanks Fall Risk Details Current Medications: Current Medications Acetaminophen (Acetaminophen 325 Mg Tablet) 650 mg PO Q6H PRN PRN Reason: Pain, Severe (Pain Scale 7-10) Last Admin: 03/24/21 08:29 Dose: 650 mg Documented by: Cyanocobalamin (Cyanocobalamin (Vitamin B-12) 1,000 Mcg Tablet) 1,000 mcg PO DAILY [facility] Last Admin: 03/27/21 08:00 Dose: 1,000 mcg Documented by: Dicyclomine HCl (Dicyclomine Hcl 10 Mg Capsule) 20 mg PO QIDACHS [facility] Last Admin: 03/27/21 12:32 Dose: 20 mg Documented by: Hydrocortisone (Hydrocortisone 2.5 % Rectal Cr 30 Gm Tube) 1 appl [place] BID [facility] Last Admin: 03/27/21 08:01 Dose: 1 appl Documented by: Hydroxyzine HCl (Hydroxyzine Hcl 10 Mg Tablet) 10 mg PO Q8H PRN PRN Reason: Anxiety Last Admin: 03/22/21 20:55 Dose: 10 mg Documented by: Levothyroxine Sodium (Levothyroxine Sodium 100 Mcg Tablet) 100 mcg PO DAILY@0630 [facility] Last Admin: 03/27/21 06:19 Dose: 100 mcg Documented by: Omeprazole (Omeprazole 20 Mg Capsule.Dr) 20 mg PO BID@0630,1630 [facility] Last Admin: 03/27/21 06:19 Dose: 20 mg Documented by: Ondansetron HCl (Ondansetron Hcl 4 Mg/2 Ml Vial) 4 mg IVPUSH Q8H PRN PRN Reason: Nausea Last Admin: 03/23/21 00:04 Dose: 4 mg Documented by: Pharmacy Consult (Consult Rx Perform Med Rec) 1 each MISCELLANE ONCE PRN PRN Reason: Consult order Prednisone (Prednisone 20 Mg Tablet) 40 mg PO DAILY [facility] Last Admin: 03/27/21 08:00 Dose: 40 mg Documented by: Time Spent With Patient Time: Total time spent is greater than 50% in coordination of care (as documented) at patient's floor/unit and/or counseling patient: Time with patient: 25 - 35 minutes Quality Stroke Does the patient have a stroke diagnosis?: No VTE Prior VTE?: No VTE Risk Level:: Medical - moderate - high VTE Device Contraindication: N/A - Device Ordered VTE Drug Contraindication: N/A - Med Ordered
[2021-03-27] MEDS: Acetaminophen 325 MG TABLET 650 MG PO (20:49)
[2021-03-27] MEDS: hydrOXYzine HCL 10 MG TABLET PO (20:49)
[2021-03-27] MEDS: ondansetron HCL 4 MG/2 ML VIAL IVPUSH (20:49)
--- NOTE | 2021-03-27 22:15 | PC.NURSE ---
Addendum entered by Deidre Hernandez RN 03/27/21 22:40: Kub done ,results pending,medicated with Dilaudid Original Note: P patent medicated with Tylenol for lower abdominal pain with no effect I Dr. Wong notified E awaiting new orders
[2021-03-27] MEDS: HYDROmorphone HCl 0.5 MG/0.5 ML SYRINGE IVPUSH (22:38)
[2021-03-28 02:01] LABS: Calprotectin, Fecal 289 mcg/g
[2021-03-28] MEDS: Acetaminophen 325 MG TABLET 650 MG PO ×2 (02:56→08:49)
[2021-03-28] MEDS: oxyCODONE HCl Immed Release 5 MG TABLET PO ×2 (02:56→08:50)
[2021-03-28 03:41] VITALS: BP 121/56; PULSE 60; RESP 15; TEMP 36.2; O2SAT 97
[2021-03-28] MEDS: Levothyroxine Sodium 100 MCG TABLET PO (05:49)
[2021-03-28] MEDS: Omeprazole 20 MG CAPSULE.DR PO ×2 (05:49→16:44)
[2021-03-28 06:06] LABS: MANUAL DIFF FLAG NO
[2021-03-28 06:13] LABS: Basophils Percent Auto 0.2 % (0-2); Eosinophils Absolute Auto 0.1 X10*3/uL (0.0-0.4); Eosinophils Percent Auto 0.7 % (0-4); Hematocrit 37.6 % (37-47); Hemoglobin 12.7 g/dl (12.0-16.0); Imm Gran Abs Auto 0.23 X10*3/uL (0.00-0.03); Imm Gran Pct Auto 1.2 % (0.0-0.4); Lymphocytes Absolute Auto 3.4 X10*3/uL (1.2-4.9); Lymphocytes Percent Auto 18.3 % (20-40); Mean Corpuscular HGB Conc 33.8 g/dl (31.0-35.0); Mean Corpuscular Hemoglobin 31.3 pg (27.0-33.0); Mean Corpuscular Volume 92.6 fL (80-98); Mean Platelet Volume 10.1 fL (9.4-12.3); Monocytes Absolute Auto 1.1 X10*3/uL (0.1-1.2); Monocytes Percent Auto 5.7 % (2-11); Neutrophils Absolute Auto 13.7 X10*3/uL (2.0-8.3); Neutrophils Percent Auto 73.9 % (45-73); Platelet Count 257 X10*3/uL (160-400); Red Blood Count 4.06 X10*6/uL (4.20-5.50); Red Cell Distribution Width 12.3 % (11.0-16.0); White Blood Count 18.6 X10*3/uL (4.8-10.8)
[2021-03-28 08:00] VITALS: BP 111/62; PULSE 71; RESP 16; TEMP 36.3; O2SAT 100
[2021-03-28] MEDS: predniSONE 20 MG TABLET 40 MG PO (08:43)
[2021-03-28] MEDS: Dicyclomine HCl 10 MG CAPSULE 20 MG PO ×4 (08:43→21:44)
[2021-03-28] MEDS: Cyanocobalamin (Vitamin B-12) 1,000 MCG TABLET 1000 MCG PO (08:43)
[2021-03-28] MEDS: Hydrocortisone 2.5 % Rectal Cr 30 GM TUBE 1 APPL PR ×2 (08:44→21:45)
--- NOTE | 2021-03-28 13:07 | HO.PM.IMPN ---
Subjective Subjective Date of Service: 03/28/21 Interval History: Seen in follow-up for inflammatory colitis.? She reports excruciating cramps and pain overnight that she reltes to eating and doesn't feel like eating Review of Systems No fever or chill. Abdominal pain, constipation. Physical Exam Vital Signs: Vital Signs: Last Vital Signs Temp 97.3 F 03/28/21 08:00 Pulse 71 03/28/21 08:00 Resp 16 03/28/21 08:00 BP 111/62 03/28/21 08:00 Pulse Ox 100 03/28/21 08:00 Body Mass Index 33.0 General: AO X 3, no acute distress Resp: CTA bilateral CVS: S1,S2,RRR GI: +BS,tenderness with minmal palpation, no distention Skin: No rash Neuro: motor grossly intact Psych: appropriate affect Objective Data Active Medications Acetaminophen (Acetaminophen 325 Mg Tablet) 650 mg PO Q6H PRN PRN Reason: Pain, Severe (Pain Scale 7-10) Last Admin: 03/28/21 08:49 Dose: 650 mg Documented by: KAMLESH Cyanocobalamin (Cyanocobalamin (Vitamin B-12) 1,000 Mcg Tablet) 1,000 mcg PO DAILY [facility] Last Admin: 03/28/21 08:43 Dose: 1,000 mcg Documented by: KAMLESH Dicyclomine HCl (Dicyclomine Hcl 10 Mg Capsule) 20 mg PO QIDACHS [facility] Last Admin: 03/28/21 11:49 Dose: 20 mg Documented by: KAMLESH Hydrocortisone (Hydrocortisone 2.5 % Rectal Cr 30 Gm Tube) 1 appl [place] BID [facility] Last Admin: 03/28/21 08:44 Dose: 1 appl Documented by: KAMLESH Hydroxyzine HCl (Hydroxyzine Hcl 10 Mg Tablet) 10 mg PO Q8H PRN PRN Reason: Anxiety Last Admin: 03/27/21 20:49 Dose: 10 mg Documented by: MARTIN Levothyroxine Sodium (Levothyroxine Sodium 100 Mcg Tablet) 100 mcg PO DAILY@0630 [facility] Last Admin: 03/28/21 05:49 Dose: 100 mcg Documented by: LELA Omeprazole (Omeprazole 20 Mg Capsule.Dr) 20 mg PO BID@0630,1630 [facility] Last Admin: 03/28/21 05:49 Dose: 20 mg Documented by: LELA Ondansetron HCl (Ondansetron Hcl 4 Mg/2 Ml Vial) 4 mg IVPUSH Q8H PRN PRN Reason: Nausea Last Admin: 03/27/21 20:49 Dose: 4 mg Documented by: MARTIN Oxycodone HCl (Oxycodone Hcl Immed Release 5 Mg Tablet) 5 mg PO Q6H PRN PRN Reason: Breakthrough Pain Last Admin: 03/28/21 08:50 Dose: 5 mg Documented by: KAMLESH Pharmacy Consult (Consult Rx Perform Med Rec) 1 each MISCELLANE ONCE PRN PRN Reason: Consult order Prednisone (Prednisone 20 Mg Tablet) 40 mg PO DAILY [facility] Last Admin: 03/28/21 08:43 Dose: 40 mg Documented by: KAMLESH Labs CBC & Chem 7: 03/28/21 05:34 03/27/21 05:39 Labs: Laboratory Results - last 24 hr 03/23/21 03/28/21 17:06 05:34 MCV 92.6 MCH 31.3 MCHC 33.8 RDW 12.3 Plt Count 257 D MPV 10.1 Immature Gran % (Auto) 1.2 H Neut % (Auto) 73.9 H Lymph % (Auto) 18.3 L [place] % (Auto) 5.7 Eos % (Auto) 0.7 Baso % (Auto) 0.2 Lymph # (Auto) 3.4 [place] # (Auto) 1.1 Eos # (Auto) 0.1 Baso # (Auto) 0.0 Abs Immat Gran (auto) 0.23 H Absolute Neuts (auto) 13.7 H Absolute Nucleated RBC 0.000 Nucleated RBC % (auto) 0.0 Stool Calprotectin 289 H Assessment and Plan (1) IBD (inflammatory bowel disease): Status: Acute Assessment and Plan: 1. Colitis, probable Crohn's , Improved on IV steroid and now oral steroid but experienced pain overnight, continue present diet and advance as tolerated, i will discuss with GI re next 2. Hypothyroidism:? continue levothyroxine. Gi prophylax: ppi, possibly home later today Leukocytosis--d/t steroid , monitor Quality Stroke Does the patient have a stroke diagnosis?: No VTE Prior VTE?: No VTE Risk Level:: Medical - moderate - high VTE Device Contraindication: N/A - Device Ordered VTE Drug Contraindication: N/A - Med Ordered
[2021-03-28 15:23] VITALS: BP 105/56; PULSE 65; RESP 18; TEMP 36.3; O2SAT 96
--- NOTE | 2021-03-28 16:11 | MHC.CM.PN ---
EMR REVIEWED, PT HAD AN INCREASE IN PAIN OVERNIGHT, NO D/C PLANNED FOR TODAY, POSSIBLE W/E D/C, CM WILL CONT TO FOLLOW. D/C PLAN: HOME SELF-CARE, PT WILL ARRANGE TRANSPORT
[2021-03-28 19:08] VITALS: BP 120/62; PULSE 69; RESP 18; TEMP 36.6; O2SAT 98
--- NOTE | 2021-03-28 19:19 | P.PNGI_ITS ---
Subjective Subjective Date of Service: 03/28/21 Interval History: Course noted and D/W patient and Dr. Ratliff. She began having significant rectal urgency and abdominal pain last evening and overnight with initially some narrow stools and then with just passing of some blood-tinged mucous. Today she has cut back on solid food intake and is feeling better. This has been her course at home as well. She describes that as the diet is advanced she then runs into trouble with the aforementioned symptoms. Critical Care Time (minutes): 0 Physical Exam Vital Signs: Vital Signs: Last Vital Signs Temp 97.8 F 03/28/21 19:08 Pulse 69 03/28/21 19:08 Resp 18 03/28/21 19:08 BP 120/62 03/28/21 19:08 Pulse Ox 98 03/28/21 19:08 Body Mass Index 33.0 Const: General: cooperative, healthy appearing, comfortable, no acute distress, well developed and alert Nutritional Appearance: well nourished GI: Other: Nondistended, + BS, soft, Mild tenderness on left side, no ma ss/rebound/guarding Extrem: Other: No edema Objective Data Labs CBC & Chem 7: 03/28/21 05:34 03/27/21 05:39 Labs: Laboratory Results - last 24 hr 03/23/21 03/28/21 17:06 05:34 WBC 18.6 H RBC 4.06 L Hgb 12.7 Hct 37.6 MCV 92.6 MCH 31.3 MCHC 33.8 RDW 12.3 Plt Count 257 D MPV 10.1 Immature Gran % (Auto) 1.2 H Neut % (Auto) 73.9 H Lymph % (Auto) 18.3 L [place] % (Auto) 5.7 Eos % (Auto) 0.7 Baso % (Auto) 0.2 Lymph # (Auto) 3.4 [place] # (Auto) 1.1 Eos # (Auto) 0.1 Baso # (Auto) 0.0 Abs Immat Gran (auto) 0.23 H Absolute Neuts (auto) 13.7 H Absolute Nucleated RBC 0.000 Nucleated RBC % (auto) 0.0 Stool Calprotectin 289 H Microbiology Microbiology Results: Microbiology 03/19/21 09:45 Stool Stool Culture - Final Procedures Date of Service Date of Service: 03/28/21 Progress Note: A&P Assessment and plan (1) IBD (inflammatory bowel disease): Status: Acute Assessment and Plan: Imp: Inflammatory bowel disease with probable Crohn's colitis. Based on her clinical course I suspect she has a relative narrowing of the distal sigmoid colon that becomes very symptomatic as her diet is advanced and the stool burden increases.She has had some clinical improvement with normalization of her ESR and CRP, as well as some less abdominal symptoms in general. However, she clearly continues to have problems in relation to the active colitis and symptoms as her diet is advanced. Rec: Cut back to very soft diet with supplements TID. Repeat imaging to try to assess for any definitive area of focal narrowing/ stricture as opposed to a severe and more diffuse colitis. Continue prednisone but will increase to 60mg QD for a few days and possibly add topical steroids with a hydrocortisone enema if it is on formulary. Will need to consider trying to her started on a biologic agent(although has to be on an outpatient basis per insurance) and will check TB/Hep B status for that. D/W patient in detail. Thanks Fall Risk Details Current Medications: Current Medications Acetaminophen (Acetaminophen 325 Mg Tablet) 650 mg PO Q6H PRN PRN Reason: Pain, Severe (Pain Scale 7-10) Last Admin: 03/28/21 08:49 Dose: 650 mg Documented by: Cyanocobalamin (Cyanocobalamin (Vitamin B-12) 1,000 Mcg Tablet) 1,000 mcg PO DAILY [facility] Last Admin: 03/28/21 08:43 Dose: 1,000 mcg Documented by: Dicyclomine HCl (Dicyclomine Hcl 10 Mg Capsule) 20 mg PO QIDACHS [facility] Last Admin: 03/28/21 16:44 Dose: 20 mg Documented by: Hydrocortisone (Hydrocortisone 2.5 % Rectal Cr 30 Gm Tube) 1 appl [place] BID [facility] Last Admin: 03/28/21 08:44 Dose: 1 appl Documented by: Hydroxyzine HCl (Hydroxyzine Hcl 10 Mg Tablet) 10 mg PO Q8H PRN PRN Reason: Anxiety Last Admin: 03/27/21 20:49 Dose: 10 mg Documented by: Levothyroxine Sodium (Levothyroxine Sodium 100 Mcg Tablet) 100 mcg PO DAILY@0630 [facility] Last Admin: 03/28/21 05:49 Dose: 100 mcg Documented by: Omeprazole (Omeprazole 20 Mg Capsule.) 20 mg PO BID@0630,7940 [facility] Last Admin: 03/28/21 16:44 Dose: 20 mg Documented by: Ondansetron HCl (Ondansetron Hcl 4 Mg/2 Ml Vial) 4 mg IVPUSH Q8H PRN PRN Reason: Nausea Last Admin: 03/27/21 20:49 Dose: 4 mg Documented by: Oxycodone HCl (Oxycodone Hcl Immed Release 5 Mg Tablet) 5 mg PO Q6H PRN PRN Reason: Breakthrough Pain Last Admin: 03/28/21 08:50 Dose: 5 mg Documented by: Pharmacy Consult (Consult Rx Perform Med Rec) 1 each MISCELLANE ONCE PRN PRN Reason: Consult order Prednisone (Prednisone 20 Mg Tablet) 40 mg PO DAILY [facility] Last Admin: 03/28/21 08:43 Dose: 40 mg Documented by: Time Spent With Patient Time: Total time spent is greater than 50% in coordination of care (as documented) at patient's floor/unit and/or counseling patient: Time with patient: 25 - 35 minutes Quality Stroke Does the patient have a stroke diagnosis?: No VTE Prior VTE?: No VTE Risk Level:: Medical - moderate - high VTE Device Contraindication: N/A - Device Ordered VTE Drug Contraindication: N/A - Med Ordered
[2021-03-28] MEDS: predniSONE 20 MG TABLET PO (21:44)
[2021-03-28] MEDS: hydrOXYzine HCL 10 MG TABLET PO (23:59)
[2021-03-29] VITALS: BP 105/56; PULSE 64; RESP 18; TEMP 36.3; O2SAT 99
[2021-03-29 04:00] VITALS: BP 116/59; PULSE 58; RESP 18; TEMP 36.1; O2SAT 97
--- NOTE | 2021-03-29 05:07 | HO.PM.IMPN ---
Subjective Subjective Date of Service: 03/29/21 Interval History: Seen in follow-up for inflammatory colitis.? She still has pain but better since off solid food Review of Systems No fever or chill. Abdominal pain, constipation. Physical Exam Vital Signs: Vital Signs: Last Vital Signs Temp 96.9 F 03/29/21 04:00 Pulse 58 03/29/21 04:00 Resp 18 03/29/21 04:00 BP 116/59 L 03/29/21 04:00 Pulse Ox 97 03/29/21 04:00 Body Mass Index 33.0 General: AO X 3, no acute distress Resp: CTA bilateral CVS: S1,S2,RRR GI: +BS, very tender to palpation (unchanged), voluntary guarding Skin: No rash Neuro: motor grossly intact Psych: appropriate affect tion. Objective Data Active Medications Acetaminophen (Acetaminophen 325 Mg Tablet) 650 mg PO Q6H PRN PRN Reason: Pain, Severe (Pain Scale 7-10) Last Admin: 03/28/21 08:49 Dose: 650 mg Documented by: KAMLESH Cyanocobalamin (Cyanocobalamin (Vitamin B-12) 1,000 Mcg Tablet) 1,000 mcg PO DAILY [facility] Last Admin: 03/28/21 08:43 Dose: 1,000 mcg Documented by: KAMLESH Dicyclomine HCl (Dicyclomine Hcl 10 Mg Capsule) 20 mg PO QIDACHS [facility] Last Admin: 03/28/21 21:44 Dose: 20 mg Documented by: MARTIN Hydrocortisone (Hydrocortisone 2.5 % Rectal Cr 30 Gm Tube) 1 appl [place] BID [facility] Last Admin: 03/28/21 21:45 Dose: 1 appl Documented by: MARTIN Hydroxyzine HCl (Hydroxyzine Hcl 10 Mg Tablet) 10 mg PO Q8H PRN PRN Reason: Anxiety Last Admin: 03/28/21 23:59 Dose: 10 mg Documented by: IAIN Levothyroxine Sodium (Levothyroxine Sodium 100 Mcg Tablet) 100 mcg PO DAILY@0630 [facility] Last Admin: 03/28/21 05:49 Dose: 100 mcg Documented by: LELA Omeprazole (Omeprazole 20 Mg Capsule.) 20 mg PO BID@0630,1630 [facility] Last Admin: 03/28/21 16:44 Dose: 20 mg Documented by: MARTIN Ondansetron HCl (Ondansetron Hcl 4 Mg/2 Ml Vial) 4 mg IVPUSH Q8H PRN PRN Reason: Nausea Last Admin: 03/27/21 20:49 Dose: 4 mg Documented by: MARTIN Oxycodone HCl (Oxycodone Hcl Immed Release 5 Mg Tablet) 5 mg PO Q6H PRN PRN Reason: Breakthrough Pain Last Admin: 03/28/21 08:50 Dose: 5 mg Documented by: KAMLESH Pharmacy Consult (Consult Rx Perform Med Rec) 1 each MISCELLANE ONCE PRN PRN Reason: Consult order Prednisone (Prednisone 20 Mg Tablet) 60 mg PO DAILY [facility] Labs CBC & Chem 7: 03/29/21 05:22 03/27/21 05:39 Labs: Laboratory Results - last 24 hr 03/28/21 05:34 MCV 92.6 MCH 31.3 MCHC 33.8 RDW 12.3 Plt Count 257 D MPV 10.1 Immature Gran % (Auto) 1.2 H Neut % (Auto) 73.9 H Lymph % (Auto) 18.3 L [place] % (Auto) 5.7 Eos % (Auto) 0.7 Baso % (Auto) 0.2 Lymph # (Auto) 3.4 [place] # (Auto) 1.1 Eos # (Auto) 0.1 Baso # (Auto) 0.0 Abs Immat Gran (auto) 0.23 H Absolute Neuts (auto) 13.7 H Absolute Nucleated RBC 0.000 Nucleated RBC % (auto) 0.0 Assessment and Plan (1) IBD (inflammatory bowel disease): Status: Acute Assessment and Plan: 51 female with abdominal pain and being treated for colitis 1. Colitis, probable Crohn's , Improved on IV steroid and now oral steroid but experienced increased with diet advanced to solid. She is better albeit not optimal, GI is guiding us with management and will arrange for additional imaging to further assess. For now to stick with soft diet with suplement tid, prednisone increased to 60 daily for few days, then likely return to 40 daily 2. Hypothyroidism:? continue levothyroxine. Gi prophylax: ppi, possibly home later today Leukocytosis--d/t steroid , monitor DVT she ambulates on consitent basis and heparin or Lovenox should be avoided Quality Stroke Does the patient have a stroke diagnosis?: No VTE Prior VTE?: No VTE Risk Level:: Medical - moderate - high VTE Device Contraindication: N/A - Device Ordered VTE Drug Contraindication: N/A - Med Ordered
[2021-03-29 05:58] LABS: MANUAL DIFF FLAG NO
[2021-03-29] MEDS: Omeprazole 20 MG CAPSULE.DR PO ×2 (06:06→16:42)
[2021-03-29] MEDS: Levothyroxine Sodium 100 MCG TABLET PO (06:06)
[2021-03-29 06:10] LABS: Basophils Percent Auto 0.1 % (0-2); Eosinophils Percent Auto 0.1 % (0-4); Hematocrit 41.1 % (37-47); Hemoglobin 13.9 g/dl (12.0-16.0); Imm Gran Abs Auto 0.26 X10*3/uL (0.00-0.03); Imm Gran Pct Auto 1.9 % (0.0-0.4); Lymphocytes Absolute Auto 1.7 X10*3/uL (1.2-4.9); Lymphocytes Percent Auto 12.4 % (20-40); Mean Corpuscular HGB Conc 33.8 g/dl (31.0-35.0); Mean Corpuscular Hemoglobin 31.3 pg (27.0-33.0); Mean Corpuscular Volume 92.6 fL (80-98); Mean Platelet Volume 10.2 fL (9.4-12.3); Monocytes Absolute Auto 0.5 X10*3/uL (0.1-1.2); Monocytes Percent Auto 3.7 % (2-11); Neutrophils Absolute Auto 11.1 X10*3/uL (2.0-8.3); Neutrophils Percent Auto 81.8 % (45-73); Platelet Count 280 X10*3/uL (160-400); Red Blood Count 4.44 X10*6/uL (4.20-5.50); Red Cell Distribution Width 12.2 % (11.0-16.0); White Blood Count 13.5 X10*3/uL (4.8-10.8)
[2021-03-29 06:39] LABS: Anion Gap 11 (12-20); Blood Urea Nitrogen 14 mg/dL (9-16); Calcium 9.2 mg/dL (8.4-10.2); Carbon Dioxide 30 mmol/L (22-29); Chloride 102 mmol/L (96-108); Creatinine Clr Calc Pharmacy 94.7; Estimated Glomerular Filt Rate > 60; Glucose Fasting 105 mg/dL (60-99); Potassium 3.9 mmol/L (3.3-5.1); Sodium 139 mmol/L (135-145)
[2021-03-29 08:00] VITALS: BP 106/65; PULSE 68; RESP 18; TEMP 36.6; O2SAT 100
[2021-03-29] MEDS: Dicyclomine HCl 10 MG CAPSULE 20 MG PO ×4 (08:40→20:24)
[2021-03-29] MEDS: predniSONE 20 MG TABLET 60 MG PO (08:40)
[2021-03-29] MEDS: Cyanocobalamin (Vitamin B-12) 1,000 MCG TABLET 1000 MCG PO (08:40)
[2021-03-29] MEDS: Hydrocortisone 2.5 % Rectal Cr 30 GM TUBE 1 APPL PR ×2 (08:41→20:24)
[2021-03-29] MEDS: oxyCODONE HCl Immed Release 5 MG TABLET PO (11:53)
[2021-03-29 12:00] VITALS: BP 109/52; PULSE 70; RESP 18; TEMP 36.6; O2SAT 95
[2021-03-29 16:00] VITALS: BP 132/68; PULSE 76; RESP 16; TEMP 36.3; O2SAT 98
--- NOTE | 2021-03-29 16:12 | P.PNGI_ITS ---
Subjective Subjective Date of Service: 03/29/21 Interval History: She reports a better night and doing better today. She had 1 soft BM without much discomfort. Tolerating a soft diet. Denies N/V or significant abdominal pains. Critical Care Time (minutes): 0 Physical Exam Vital Signs: Vital Signs: Last Vital Signs Temp 97.3 F 03/29/21 16:00 Pulse 76 03/29/21 16:00 Resp 16 03/29/21 16:00 BP 132/68 03/29/21 16:00 Pulse Ox 98 03/29/21 16:00 Body Mass Index 33.0 Const: General: cooperative, healthy appearing, comfortable, no acute distress, well developed and alert GI: Other: Abd-Soft, +BS, Minimal upper abdominal tenderness, no mass/rebound/guarding Objective Data Labs CBC & Chem 7: 03/29/21 05:22 03/29/21 05:22 Labs: Laboratory Results - last 24 hr 03/29/21 03/29/21 05:22 05:22 WBC 13.5 H RBC 4.44 Hgb 13.9 Hct 41.1 MCV 92.6 MCH 31.3 MCHC 33.8 RDW 12.2 Plt Count 280 MPV 10.2 Immature Gran % (Auto) 1.9 H Neut % (Auto) 81.8 H Lymph % (Auto) 12.4 L [place] % (Auto) 3.7 Eos % (Auto) 0.1 Baso % (Auto) 0.1 Lymph # (Auto) 1.7 [place] # (Auto) 0.5 Eos # (Auto) 0.0 Baso # (Auto) 0.0 Abs Immat Gran (auto) 0.26 H Absolute Neuts (auto) 11.1 H Absolute Nucleated RBC 0.000 Nucleated RBC % (auto) 0.0 Sodium 139 Potassium 3.9 Chloride 102 Carbon Dioxide 30 H Anion Gap 11 L BUN 14 Creatinine 0.67 Estim Creat Clear Calc 94.7 Estimated GFR > 60 Fasting Glucose 105 H Calcium 9.2 Microbiology Microbiology Results: Microbiology 03/19/21 09:45 Stool Stool Culture - Final Procedures Date of Service Date of Service: 03/29/21 Progress Note: A&P Assessment and plan (1) IBD (inflammatory bowel disease): Status: Acute Assessment and Plan: Imp: Presently seems stable and more comfortable on current diet and higher dose of prednisone. Her abdominal exam is benign. Her WBC continues to decrease. The ESR and CRP have normalized. The stool calprotectin level is elevated and c/w IBD as well. Rec: At this point I am now inclined to try to send her home tomorrow as long as things remain as stable as they are presently. Rather than put her through more imaging and/or colonoscopies as an inpatient, I think we can try to discharge her tomorrow on the 60mg of prednisone QD(she has a Rx for the prednisone at home) and dicyclomine. I advised her to stay on a very, very soft diet and use supplements 2-3x QD as well(both here and at home). I will then work on trying to get her started on one of the biologics like Remicade EBONY(the Hep B profile is pending and TB test was ordered but doesn't look like it was done-I'll reorde r it for tomorrow). If she goes home tomorrow I will arrange for outpatient follow up, including the initiation of the biologic agent and slow tapering of the prednisone in the meantime. If things worsen overnight we can always reassess the plan. D/W patient in detail and she is comfortable with this plan. Fall Risk Details Current Medications: Current Medications Acetaminophen (Acetaminophen 325 Mg Tablet) 650 mg PO Q6H PRN PRN Reason: Pain, Severe (Pain Scale 7-10) Last Admin: 03/28/21 08:49 Dose: 650 mg Documented by: Cyanocobalamin (Cyanocobalamin (Vitamin B-12) 1,000 Mcg Tablet) 1,000 mcg PO DAILY [facility] Last Admin: 03/29/21 08:40 Dose: 1,000 mcg Documented by: Dicyclomine HCl (Dicyclomine Hcl 10 Mg Capsule) 20 mg PO QIDACHS [facility] Last Admin: 03/29/21 11:52 Dose: 20 mg Documented by: Hydrocortisone (Hydrocortisone 2.5 % Rectal Cr 30 Gm Tube) 1 appl [place] BID [facility] Last Admin: 03/29/21 08:41 Dose: 1 appl Documented by: Hydroxyzine HCl (Hydroxyzine Hcl 10 Mg Tablet) 10 mg PO Q8H PRN PRN Reason: Anxiety Last Admin: 03/28/21 23:59 Dose: 10 mg Documented by: Levothyroxine Sodium (Levothyroxine Sodium 100 Mcg Tablet) 100 mcg PO DAILY@0630 [facility] Last Admin: 03/29/21 06:06 Dose: 100 mcg Documented by: Omeprazole (Omeprazole 20 Mg Capsule.) 20 mg PO BID@0630,1630 [facility] Last Admin: 03/29/21 06:06 Dose: 20 mg Documented by: Ondansetron HCl (Ondansetron Hcl 4 Mg/2 Ml Vial) 4 mg IVPUSH Q8H PRN PRN Reason: Nausea Last Admin: 03/27/21 20:49 Dose: 4 mg Documented by: Oxycodone HCl (Oxycodone Hcl Immed Release 5 Mg Tablet) 5 mg PO Q6H PRN PRN Reason: Breakthrough Pain Last Admin: 03/29/21 11:53 Dose: 5 mg Documented by: Pharmacy Consult (Consult Rx Perform Med Rec) 1 each MISCELLANE ONCE PRN PRN Reason: Consult order Prednisone (Prednisone 20 Mg Tablet) 60 mg PO DAILY [facility] Last Admin: 03/29/21 08:40 Dose: 60 mg Documented by: Time Spent With Patient Time: Total time spent is greater than 50% in coordination of care (as documented) at patient's floor/unit and/or counseling patient: Time with patient: 25 - 35 minutes Quality Stroke Does the patient have a stroke diagnosis?: No VTE Prior VTE?: No VTE Risk Level:: Medical - moderate - high VTE Device Contraindication: N/A - Device Ordered VTE Drug Contraindication: N/A - Med Ordered
[2021-03-29 19:19] VITALS: BP 108/76; PULSE 88; RESP 18; TEMP 36.2; O2SAT 96
[2021-03-30] VITALS: BP 104/65; PULSE 66; RESP 18; TEMP 36.6; O2SAT 98
[2021-03-30] MEDS: oxyCODONE HCl Immed Release 5 MG TABLET PO (00:27)
[2021-03-30 04:00] VITALS: BP 101/54; PULSE 55; RESP 18; TEMP 36.4; O2SAT 98
--- NOTE | 2021-03-30 04:59 | HO.PM.IMPN ---
Subjective Subjective Date of Service: 04/05/21 Interval History: Seen in follow-up for inflammatory colitis., improved and pain is better, on regular diet Review of Systems No fever or chill. abd pain is better Physical Exam Vital Signs: Vital Signs: Last Vital Signs Temp 97.8 F 03/30/21 00:00 Pulse 66 03/30/21 00:00 Resp 18 03/30/21 00:00 BP 104/65 03/30/21 00:00 Pulse Ox 98 03/30/21 00:00 Body Mass Index 33.0 General: AO X 3, no acute distress Resp: CTA bilateral CVS: S1,S2,RRR GI: +BS, NT, no distention Skin: No rash Neuro: motor grossly intact Psych: appropriate affect Objective Data Active Medications Acetaminophen (Acetaminophen 325 Mg Tablet) 650 mg PO Q6H PRN PRN Reason: Pain, Severe (Pain Scale 7-10) Last Admin: 03/28/21 08:49 Dose: 650 mg Documented by: KAMLESH Cyanocobalamin (Cyanocobalamin (Vitamin B-12) 1,000 Mcg Tablet) 1,000 mcg PO DAILY [facility] Last Admin: 03/29/21 08:40 Dose: 1,000 mcg Documented by: KLEBER Dicyclomine HCl (Dicyclomine Hcl 10 Mg Capsule) 20 mg PO QIDACHS [facility] Last Admin: 03/29/21 20:24 Dose: 20 mg Documented by: STEPHEN Hydrocortisone (Hydrocortisone 2.5 % Rectal Cr 30 Gm Tube) 1 appl [place] BID [facility] Last Admin: 03/29/21 20:24 Dose: 1 appl Documented by: STEPHEN Hydroxyzine HCl (Hydroxyzine Hcl 10 Mg Tablet) 10 mg PO Q8H PRN PRN Reason: Anxiety Last Admin: 03/28/21 23:59 Dose: 10 mg Documented by: IAIN Levothyroxine Sodium (Levothyroxine Sodium 100 Mcg Tablet) 100 mcg PO DAILY@0630 [facility] Last Admin: 03/29/21 06:06 Dose: 100 mcg Documented by: IAIN Omeprazole (Omeprazole 20 Mg Capsule.) 20 mg PO BID@0630,1630 [facility] Last Admin: 03/29/21 16:42 Dose: 20 mg Documented by: KLEBER Ondansetron HCl (Ondansetron Hcl 4 Mg/2 Ml Vial) 4 mg IVPUSH Q8H PRN PRN Reason: Nausea Last Admin: 03/27/21 20:49 Dose: 4 mg Documented by: MARTIN Oxycodone HCl (Oxycodone Hcl Immed Release 5 Mg Tablet) 5 mg PO Q6H PRN PRN Reason: Breakthrough Pain Last Admin: 03/30/21 00:27 Dose: 5 mg Documented by: GRACIA Pharmacy Consult (Consult Rx Perform Med Rec) 1 each MISCELLANE ONCE PRN PRN Reason: Consult order Prednisone (Prednisone 20 Mg Tablet) 60 mg PO DAILY [facility] Last Admin: 03/29/21 08:40 Dose: 60 mg Documented by: KLEBER Labs CBC & Chem 7: 03/29/21 05:22 03/29/21 05:22 Labs: Laboratory Results - last 24 hr 03/29/21 03/29/21 05:22 05:22 MCV 92.6 MCH 31.3 MCHC 33.8 RDW 12.2 Plt Count 280 MPV 10.2 Immature Gran % (Auto) 1.9 H Neut % (Auto) 81.8 H Lymph % (Auto) 12.4 L [place] % (Auto) 3.7 Eos % (Auto) 0.1 Baso % (Auto) 0.1 Lymph # (Auto) 1.7 [place] # (Auto) 0.5 Eos # (Auto) 0.0 Baso # (Auto) 0.0 Abs Immat Gran (auto) 0.26 H Absolute Neuts (auto) 11.1 H Absolute Nucleated RBC 0.000 Nucleated RBC % (auto) 0.0 Anion Gap 11 L Estim Creat Clear Calc 94.7 Estimated GFR > 60 Fasting Glucose 105 H Calcium 9.2 Assessment and Plan (1) IBD (inflammatory bowel disease): Status: Acute Assessment and Plan: 51 female with abdominal pain and being treated for colitis 1. Colitis, probable Crohn's , Improved on IV steroid, and now on oral sterod, diet advanced to regular. -continue Prednisone as recommended by GI, possible home today 2. Hypothyroidism:? continue levothyroxine. Gi prophylax: ppi, possibly home later today Leukocytosis--d/t steroid , monitor DVT she ambulates on consitent basis and heparin or Lovenox should be avoided Quality Stroke Does the patient have a stroke diagnosis?: No VTE Prior VTE?: No VTE Risk Level:: Medical - moderate - high VTE Device Contraindication: N/A - Device Ordered VTE Drug Contraindication: N/A - Med Ordered
--- NOTE | 2021-03-30 05:06 | PM.DS ---
DS: Providers Provider Date of Service: 03/30/21 Date of admission: 03/18/21 17:40 Primary care physician: Karma Reyes MD Consults: 03/18/21 18:05 Consult to Gastroenterology Routine Consulting Provider: Sukumar Ramos Reason for consultation: colitis ? ibd flare Has provider been notified: No DS: Diagnosis Discharge Diagnosis (1) IBD (inflammatory bowel disease): Status: Acute DS: Summary Hospital Course Hospital Course: Chief Complaint: nausea , abdominal pain 51-year-old female with past medical history of anxiety, depression, choledocholithiasis, hyperlipidemia, hypothyroidism, insomnia-came to the hospital because of persistent abdominal pain, also nausea and unable to take p.o. due to pain.? Patient had recent colitis started in January and was given antibiotic x2 since then and also received steroids but pain did not improve much and now having nausea difficulty tolerating food :? So being admitted for possible IBD flare. 03/04 in our ED & colonoscopy performed on Wednesday 03/14 currently on prednisone outpatient. she presenting as above to the ED complaining of diffuse generalized abdominal pain/bloating, nausea, and 1st BM since colonoscopy today.? Reports 1 pink tinged BM.? Denies fever, chills, vomiting, diarrhea, dysuria/hematuria, melena or sob or cough. Hosptial course: Patient was treated for colitis that is thought to be inflamatory in nature with IV steroid and did improve, however when attempt made to advance her diet she experienced severe rebound so that diet has to beescalate, and slowly she has improved and at this point her diet has been advanced to regular diet which she seem to be tolerating. She would need definitive diagnosis and therefore will need colonoscopy, however given the severity of her inflamation, GI deem it more prudent to do it at later time and not risk causing more complications. She will have colonsocopy as soon as feasible. She will be discharged with slow vitaly of prednisone, Bentyl, PPI Time Spent with Patient Time attestation: Total time spent providing and/or coordinating discharge services: Discharge coordination time: Greater than 30 minutes Quality: Stroke Does the patient have a stroke diagnosis?: No Physical Exam Vital Signs: Vital Signs: Last Vital Signs Temp 97.5 F 03/30/21 04:00 Pulse 55 03/30/21 04:00 Resp 18 03/30/21 04:00 BP 101/54 L 03/30/21 04:00 Pulse Ox 98 03/30/21 04:00 Body Mass Index 33.0 DS: Data Data Completed and Pending Labs on day of discharge: Laboratory Results - last 24 hr 03/29/21 03/29/21 05:22 05:22 WBC 13.5 H RBC 4.44 Hgb 13.9 Hct 41.1 MCV 92.6 MCH 31.3 MCHC 33.8 RDW 12.2 Plt Count 280 MPV 10.2 Immature Gran % (Auto) 1.9 H Neut % (Auto) 81.8 H Lymph % (Auto) 12.4 L [place] % (Auto) 3.7 Eos % (Auto) 0.1 Baso % (Auto) 0.1 Lymph # (Auto) 1.7 [place] # (Auto) 0.5 Eos # (Auto) 0.0 Baso # (Auto) 0.0 Abs Immat Gran (auto) 0.26 H Absolute Neuts (auto) 11.1 H Absolute Nucleated RBC 0.000 Nucleated RBC % (auto) 0.0 Sodium 139 Potassium 3.9 Chloride 102 Carbon Dioxide 30 H Anion Gap 11 L BUN 14 Creatinine 0.67 Estim Creat Clear Calc 94.7 Estimated GFR > 60 Fasting Glucose 105 H Calcium 9.2 Discharge Plan Discharge Anticipated Discharge Date/Time: 03/30/21 06:13 Patient Disposition: Home, Self-Care Discharge Diagnosis: Colitis Referrals: Karma Reyes MD [Primary Care Provider] - 03/31/21 3:45 pm (You have a follow up appointment scheduled on March 31 at 3:45 pm with CLAY STRUCTURE BUILDER AND SERVICERKaylynn Nicolas. Please call your doctor's office if you need to reschedule. ) Discharge Medications: New hydrocortisone [Proctozone-HC] 2.5 % Cream With Perineal Applicator 1 appl [place] BID Qty: 30 RF: 0 omeprazole 20 mg Capsule,Delayed Release(Dr/Ec) 20 mg PO BID@0630,1630 Qty: 30 RF: 0 dicyclomine 10 mg Capsule 20 mg PO QIDACHS Qty: 30 RF: 0 oxycodone 5 mg Tablet 5 mg PO Q6H PRN (Reason: Breakthrough Pain) Qty: 20 RF: 0 hydroxyzine HCl 10 mg Tablet 10 mg PO Q8H PRN (Reason: Anxiety) Qty: 15 RF: 0 docusate sodium [Colace] 100 mg capsule 100 mg PO BID Qty: 30 RF: 0 Continued levothyroxine 100 mcg tablet 100 mcg PO DAILY 90 Days Qty: 90 RF: 0 cyanocobalamin (vitamin B-12) 100 mcg tablet 1,000 mcg PO DAILY RF: 0 cholecalciferol (vitamin D3) 25 mcg (1,000 unit) capsule 25 mcg PO DAILY RF: 0 ascorbate calcium (vitamin C) 500 mg tablet 500 mg PO DAILY RF: 0 Discharge Orders: Discharge Order (Routine); Ordered 03/30/21 Ordered By: Mark Ratliff Diet: advance to usual diet Activity on Discharge: As tolerated Stand Alone Forms: Patient Portal Discharge page Care Plan Goals: Full recovery from colitis. Health Concerns: Colitis Plan of Treatment: Take prednisone as directed and follow up with GI doctor Dr. James, follow-up with your primary care doctor Assessment: As above. Discharge Date/Time: 03/30/21 13:30
[2021-03-30] MEDS: Levothyroxine Sodium 100 MCG TABLET PO (06:39)
[2021-03-30] MEDS: Omeprazole 20 MG CAPSULE.DR PO (06:39)
[2021-03-30] MEDS: Dicyclomine HCl 10 MG CAPSULE 20 MG PO ×2 (06:49→11:22)
[2021-03-30] MEDS: hydrOXYzine HCL 10 MG TABLET PO (06:50)
[2021-03-30] MEDS: Cyanocobalamin (Vitamin B-12) 1,000 MCG TABLET 1000 MCG PO (07:46)
[2021-03-30] MEDS: predniSONE 20 MG TABLET 60 MG PO (07:46)
[2021-03-30] MEDS: Hydrocortisone 2.5 % Rectal Cr 30 GM TUBE 1 APPL PR (07:47)
[2021-03-30 07:55] VITALS: BP 111/66; PULSE 58; RESP 18; TEMP 36.6; O2SAT 98
--- NOTE | 2021-03-30 08:36 | MHC.CM.PN ---
PT CLEARED TO DC HOME TODAY WITH NO SERVICES
[2021-03-31 04:27] LABS: HBS Num1 0.13 mIU/mL (0-7.99); HBc Num1 0.17 S/CO (0.00-0.79); Hepatitis B Core Antibody Nonreactive (Nonreactive); ~Hepatitis B Surface Antibody NONREACTIVE (Nonreactive)
[2021-03-31 04:30] LABS: HBsAGNum1 0.14 S/CO (0.00-0.99); Hepatitis B Surface Antigen Negative (Negative)
== END 2021-03-30 13:30 | disposition home or self-care (01) | DRG 249 ==
LOC: HO.ED 17:30 → HO.EDOVER 18:00 → HO.S3 19:21 → HO.EDOVER 03-20 13:13 → HO.S3 03-20 13:13
PROVIDERS: Internal Medicine; Internal Medicine Gastroenterology; Physician Assistant; Admitting Provider Internal Medicine; Emergency Provider Emergency Medicine Emergency Medical Services; PCP Internal Medicine; Visit Provider Internal Medicine
DX: K52.9 Noninfective gastroenteritis and colitis, unspecified (principal); D72.829 Elevated white blood cell count, unspecified; E03.9 Hypothyroidism, unspecified; M19.90 Unspecified osteoarthritis, unspecified site; F41.9 Anxiety disorder, unspecified; F32.9 Major depressive disorder, single episode, unspecified; E78.5 Hyperlipidemia, unspecified; Z20.822 Contact with and (suspected) exposure to COVID-19; Z87.891 Personal history of nicotine dependence; Z88.0 Allergy status to penicillin; Z79.890 Hormone replacement therapy; Z79.899 Other long term (current) drug therapy
CPT/HCPCS: 36415; 74018; 74177; 80048; 80076; 81003; 82272; 83605; 83690; 83735; 83993; 85025; 85027; 85652; 86140; 86704; 86706; 87045; 87046; 87340; 87493; 87635; 89055; 96361; 96374; 96375; 96376; 99285; J1170; J1650; J2060; J2270; J2405; J2920; Q9967

== ENCOUNTER 2021-04-04 11:59 | Outpatient (REF) | payer OTHER, SELFPAY ==
[2021-04-07 16:36] LABS: TS Negative Control Passed; TS Panel A 0; TS Panel B 0; TS Positive Control Passed; TSpotTB Negative (SeeBelow)
== END 2021-04-04 12:00 | disposition home or self-care (01) ==
LOC: HO.LAB 11:59
PROVIDERS: PCP Internal Medicine; Visit Provider Internal Medicine
DX: Z11.1 Encounter for screening for respiratory tuberculosis (principal); K50.10 Crohn's disease of large intestine without complications
CPT/HCPCS: 36415; 86481

== ENCOUNTER 2021-04-14 10:46 | Day surgery (SDC) | payer OTHER, SELFPAY ==
[2021-04-14 12:20] VITALS: BMI 32.8
[2021-04-14 12:28] VITALS: BP 116/77; PULSE 82; RESP 16; TEMP 36.4; O2SAT 95
--- NOTE | 2021-04-14 12:31 | P.CONAN_ITS ---
[facility] Active Problems Active Problems: All Active Problems (Updated 04/14/21 @ 12:20 by Stephani pearson RN) Metrorrhagia (Acute) Gall bladder stones (Acute) Finger dislocation (Acute) Impaired fasting blood sugar (Acute) Constipation (Acute) Hemorrhoid (Acute) Colitis (Acute) Generalized anxiety disorder (Acute) Finger strain (Acute) Hypercholesterolemia (Acute) Obesity (BMI 30-39.9) (Acute) Past Medical History Medical History (Updated 04/14/21 @ 12:20 by Stephani Vargas RN) Anxiety and depression Cholelithiasis Endometrial polyp Finger strain Hypercholesterolemia Hypothyroidism Insomnia Obesity (BMI 30-39.9) Osteoarthritis Retroperitoneal abscess Vitamin D deficiency Family History Family History Mother Colon cancer Lung cancer Father Medical history unknown Paternal Aunt Breast cancer Daughter No problems noted. Daughter No problems noted. Son No problems noted. Son No problems noted. Son No problems noted. Son No problems noted. Son No problems noted. Family history of problems with anesthesia: No Surgical History Surgical History History of ERCP Hx laparoscopic cholecystectomy Hx of colonoscopy History of Problems with Anesthesia: No Social History Social History Alcohol intake: unknown Patient Tobacco Use Status: Former Tobacco user Quit Date: 1993 Tobacco use type: Cigarette e-Cigarette/Vaping Use: Never Used Second Hand Smoke Exposure: No Use of substances other than those prescribed or required for medical reasons: Yes Substance Use Frequency: Occasionally Are you DNR?: No Advance Directives: No Advance Directives Information Provided: Yes service: No Current occupational status: employed Sexual orientation: Straight/Heterosexual Gender identity: Female Meds Allergies Allergy/AdvReac Type Severity Reaction Status Date / Time latex Allergy Unknown Hives Verified 04/10/21 11:25 penicillin V Allergy Unknown oral Verified 04/10/21 11:25 swelling Active Medications: Current Medications Sodium Biphosphate/Sodium Phosphate (Sodium Phosphate,[place]-Dibasic 133 Ml Enema) 133 ml DE ONCE PRN PRN Reason: Poor Colonoscopy Prep Results Home Medications Medication Instructions Recorded Confirmed Last Taken Type ascorbate calcium (vitamin C) 500 500 mg PO DAILY 08/19/20 03/18/21 03/18/21 History mg tablet cholecalciferol (vitamin D3) 25 25 mcg PO DAILY 08/19/20 03/18/21 03/18/21 History mcg (1,000 unit) capsule cyanocobalamin (vitamin B-12) 100 1,000 mcg PO DAILY 08/19/20 03/18/21 03/18/21 History mcg tablet balsalazide 750 mg capsule 2,250 mg PO TID 04/10/21 Unknown History Exam Exam Date and Time: April 14, 2021 1231 Height,Weight and Vital Signs: Height 5 ft Weight 76.204 kg Airway Mallampati Class: II (Caps laterally) TM Dist: >3cm Neck ROM: Full Heart: rrr Lungs: ta Assessment and Plan Assessment Anesthesia Assessment: Anesthesia Plan Discussed and Chart Reviewed Final Anesthetic Review Family History of Problems with Anesthesia: No History of Problems with Anesthesia: No NPO: Yes (Sio water with meds) ASA Class: II Final Preanesthetic Review: No Changes in Pt Med Stat, Meds/Allgs Chart Reviewed and Consent Obtained/Reviewed Patient Risk: Intermediate Procedure Risk: Intermediate Anesthetic Plan Anesthetic Plan: MAC: Disposition: Standard PACU
[2021-04-14] MEDS: Sodium Phosphate,Mono-Dibasic 133 ML ENEMA PR (12:40)
[2021-04-14] MEDS: Lactated Ringers 1,000 ML 50 ML IVCONT (13:02)
[2021-04-14 13:40] VITALS: BP 110/70; PULSE 79; RESP 20; TEMP 36.4; O2SAT 98
--- NOTE | 2021-04-14 13:46 | PM.OP ---
Brief Operative Note Date of Service: 04/14/21 Pre-op diagnosis: Coloitis, R/O Colonic stricture Post-op diagnosis: other (Active colitis from disatl rectum to 60cm, but no stricture; normal colon from 60cm to proximal transverse colon) Procedure: Colonoscopy to the proximal transverse colon with biopsies Surgeon: Walter James Anesthesia: MAC Was an Chief Innovation Officer used for this Procedure?: No Estimated blood loss (mL): 6.0 Pathology: other (A. Colon at 60cm B. Colon at 30cm C. Rectum) Condition: stable Disposition: PACU
[2021-04-14 13:55] VITALS: BP 139/79; PULSE 73; RESP 20; TEMP 36.4; O2SAT 98
--- NOTE | 2021-04-14 14:16 | OP_ITS ---
SURGEON: Walter James MD INDICATIONS: The patient presents for followup of ongoing active colitis symptoms and abnormal MRI of colon. Full consent has been obtained from her for this, including risks of bleeding and perforation. PREOPERATIVE DIAGNOSIS: Colitis, rule out colon stricture as suggested on MRI. POSTOPERATIVE DIAGNOSIS: Colitis, rule out colon stricture as suggested on MRI; active colitis from distal rectum to 60 cm, but no evidence of any stricture. Normal colonic mucosa from 60 cm to the proximal transverse colon. PROCEDURE PERFORMED: Colonoscopy to the proximal transverse colon with biopsies. ESTIMATED BLOOD LOSS: COMPLICATIONS: ANESTHESIA: Monitored anesthesia care. ASSISTANTS: SPECIMENS: DESCRIPTION OF PROCEDURE: The patient was placed in the left lateral decubitus position. The digital rectal exam revealed a small external hemorrhoid and some diminished sphincter tone. There was no other perianal disease noted. The [facility] video pediatric colonoscope was entered into the rectum. Immediately, the rectal mucosa was noted to be abnormal with active changes of colitis, which actually appeared much worse than they did originally back in February despite her ongoing treatment with steroids. With some insufflation of air, I was able to carefully negotiate my way to the more proximal bowel. Once I got to 60 cm, there was a clear demarcation between the colitis and normal mucosa. I was then able to advance to what appeared to be the proximal transverse colon judging by anatomic features. There was a fair amount of solid stool noted in this area. However, the mucosa in the entire transverse colon appeared normal. I did not try to get past the region of the proximal transverse colon due to the stool and I did not want to put any more air in colon than need be. The scope was then slowly withdrawn assessing all mucosal surfaces carefully. Biopsies were obtained from the colon at 60 cm from normal-appearing mucosa. I then obtained biopsies at 30 cm and in the rectum from areas of obvious active colitis. There was no stricture, mass, nor polyps noted. From the rectum to 60 cm, was very active and severe colitis with edema, ulceration, and friability. The level of the colitis extended all the way down to the distal rectum. I could not retroflex due to the friability of the mucosa and relative poor distensibility. The scope was withdrawn from the patient. She tolerated the procedure well and was returned to the recovery area in stable condition. IMPRESSION: Active colitis from rectum to 60 cm. Given the appearance on her imaging studies with involvement of the bowel wall, I suspect this could be Crohn's disease, although it is hard to distinguish between that and ulcerative colitis at this point since the remainder of her proximal bowel on today's exam and on the imaging studies are all normal. PLAN: The results of the biopsies will be checked. At this point, she is currently on 35 mg of prednisone daily as she has been tapering slowly on the prednisone. She will continue her prednisone taper, balsalazide 2.25 g t.i.d., and the mesalamine enema nightly. However, we are trying to get her started on one of the biologic agents as soon as we can get that approved by her insurance company as clearly she is not improving on maximal treatment otherwise. She was advised to continue to avoid all aspirin and NSAIDs long-term. Hopefully, we can get her started on one of the biologic agents before needing to rehospitalize her, but she is aware that she can always go to the ER and be rehospitalized if need be. She will continue on the full liquid diet in the meantime. This has been discussed with her . MD AMARI Rodriguez/EVA / [id number] MTDMichelle
== END 2021-04-14 14:37 | disposition home or self-care (01) ==
PROVIDERS: PCP Internal Medicine; Visit Provider Internal Medicine
PROC: 0D7E8ZZ Dilation of Large Intestine, Via Natural or Artificial Opening Endoscopic (ICD-10-PCS; CPT 45380; principal; 2021-04-14 12:00)
DX: K51.90 Ulcerative colitis, unspecified, without complications (principal); K62.89 Other specified diseases of anus and rectum; K64.4 Residual hemorrhoidal skin tags; Z86.010 Personal history of colon polyps; Z80.0 Family history of malignant neoplasm of digestive organs; Z79.52 Long term (current) use of systemic steroids; Z79.899 Other long term (current) drug therapy; Z87.891 Personal history of nicotine dependence
CPT/HCPCS: 45380; 88305; J3010

== ENCOUNTER 2021-05-28 11:32 | Outpatient (REF) | payer OTHER, SELFPAY ==
[2021-05-28 11:57] LABS: MANUAL DIFF FLAG NO
[2021-05-28 12:57] LABS: Basophils Absolute Auto 0.1 X10*3/uL (0.0-0.2); Basophils Percent Auto 0.5 % (0-2); Eosinophils Absolute Auto 0.1 X10*3/uL (0.0-0.4); Eosinophils Percent Auto 0.7 % (0-4); Hematocrit 40.4 % (37.0-47.0); Hemoglobin 12.9 g/dl (12.0-16.0); Imm Gran Abs Auto 0.16 X10*3/uL (0.00-0.03); Imm Gran Pct Auto 1.6 % (0.0-0.4); Lymphocytes Absolute Auto 2.3 X10*3/uL (1.2-4.9); Lymphocytes Percent Auto 23.4 % (20-40); Mean Corpuscular HGB Conc 31.9 g/dl (31.0-35.0); Mean Corpuscular Hemoglobin 32.2 pg (27.0-33.0); Mean Corpuscular Volume 100.7 fL (80.0-98.0); Mean Platelet Volume 9.6 fL (9.4-12.3); Monocytes Absolute Auto 0.5 X10*3/uL (0.1-1.2); Monocytes Percent Auto 4.8 % (2-11); Neutrophils Absolute Auto 6.9 x10*3/uL (2.0-8.3); Platelet Count 327 X10*3/uL (160-400); Red Blood Count 4.01 X10*6/uL (4.20-5.50); Red Cell Distribution Width 14.4 % (11.0-16.0)
[2021-05-28 13:11] LABS: Estimated Average Glucose 85 mg/dL; Hemoglobin A1c % 4.6 %
[2021-05-28 13:16] LABS: Alanine Aminotransferase 53 U/L (0-31); Albumin Level 4.4 g/dL (3.5-5.0); Alkaline Phosphatase 68 U/L (39-117); Anion Gap 14 (12-20); Aspartate Amino Transferase 31 U/L (5-31); Bilirubin Total 0.6 mg/dL (0.0-1.0); Blood Urea Nitrogen 8 mg/dL (9-16); Calcium 10.3 mg/dL (8.4-10.2); Carbon Dioxide 25 mmol/L (22-29); Chloride 106 mmol/L (96-108); Cholesterol 217 mg/dL; Estimated Glomerular Filt Rate > 60; Glucose Random 106 mg/dL (60-115); HDL Cholesterol 56 mg/dL; LDL Cholesterol Calculated 128 mg/dl; Sodium 140 mmol/L (135-145); Total Protein 7.5 g/dL (6.5-8.0); Triglycerides 165 mg/dL
[2021-05-28 13:38] LABS: Free T4 (Free Thyroxine) 1.01 ng/dL (0.71-1.85); Vitamin D 25-OH Total 23.6 ng/mL (>30)
[2021-05-28 13:47] LABS: Folate 8.3 ng/mL (> or = 4.0); Vitamin B12 575 pg/mL (200-900)
== END 2021-05-28 11:33 | disposition home or self-care (01) ==
LOC: HO.LAB 11:32
PROVIDERS: PCP Internal Medicine; Visit Provider Internal Medicine
DX: R73.01 Impaired fasting glucose (principal); E78.00 Pure hypercholesterolemia, unspecified
CPT/HCPCS: 36415; 80053; 80061; 82306; 82607; 82746; 83036; 83735; 84439; 84443; 85025

== ENCOUNTER 2021-08-22 10:44 | Outpatient (REF) | payer OTHER, SELFPAY ==
[2021-08-22 13:40] LABS: MANUAL DIFF FLAG NO
[2021-08-22 13:41] LABS: Basophils Percent Auto 0.5 % (0-2); Eosinophils Absolute Auto 0.3 X10*3/uL (0.0-0.4); Eosinophils Percent Auto 4.2 % (0-4); Hematocrit 40.4 % (37.0-47.0); Hemoglobin 12.7 g/dl (12.0-16.0); Imm Gran Abs Auto 0.04 X10*3/uL (0.00-0.03); Imm Gran Pct Auto 0.5 % (0.0-0.4); Lymphocytes Absolute Auto 2.9 X10*3/uL (1.2-4.9); Lymphocytes Percent Auto 35.9 % (20-40); Mean Corpuscular HGB Conc 31.4 g/dl (31.0-35.0); Mean Corpuscular Hemoglobin 28.9 pg (27.0-33.0); Mean Corpuscular Volume 91.8 fL (80.0-98.0); Mean Platelet Volume 9.7 fL (9.4-12.3); Monocytes Absolute Auto 0.6 X10*3/uL (0.1-1.2); Monocytes Percent Auto 7.2 % (2-11); Neutrophils Absolute Auto 4.2 x10*3/uL (2.0-8.3); Neutrophils Percent Auto 51.7 % (45-73); Platelet Count 400 X10*3/uL (160-400); Red Cell Distribution Width 12.6 % (11.0-16.0); White Blood Count 8.2 X10*3/uL (4.8-10.8)
[2021-08-22 13:56] LABS: Alanine Aminotransferase 38 U/L (0-31); Albumin Level 4.1 g/dL (3.5-5.0); Alkaline Phosphatase 72 U/L (39-117); Anion Gap 13 (12-20); Aspartate Amino Transferase 28 U/L (5-31); Bilirubin Total 0.6 mg/dL (0.0-1.0); Blood Urea Nitrogen 18 mg/dL (9-16); Calcium 9.8 mg/dL (8.4-10.2); Carbon Dioxide 25 mmol/L (22-29); Chloride 108 mmol/L (96-108); Cholesterol 190 mg/dL; Estimated Glomerular Filt Rate > 60; Glucose Random 94 mg/dL (60-115); HDL Cholesterol 46 mg/dL; LDL Cholesterol Calculated 113 mg/dl; Potassium 4.9 mmol/L (3.3-5.1); Sodium 141 mmol/L (135-145); Total Protein 7.1 g/dL (6.5-8.0); Triglycerides 155 mg/dL
[2021-08-22 14:16] LABS: Free T4 (Free Thyroxine) 0.96 ng/dL (0.71-1.85); Vitamin D 25-OH Total 29.1 ng/mL (>30)
[2021-08-22 14:18] LABS: Erythrocyte Sedimentation Rate 19 MM/HR (0-20)
[2021-08-22 14:48] LABS: Folate 3.8 ng/mL (> or = 4.0); Vitamin B12 358 pg/mL (200-900)
== END 2021-08-22 10:45 | disposition home or self-care (01) ==
LOC: HO.10HDL 10:44
PROVIDERS: Visit Provider Internal Medicine
DX: E78.00 Pure hypercholesterolemia, unspecified (principal)
CPT/HCPCS: 36415; 80053; 80061; 82306; 82607; 82746; 84439; 84443; 85025; 85652

== ENCOUNTER 2021-08-22 11:13 | Outpatient (REF) | payer OTHER, SELFPAY ==
--- NOTE | ~2021-08-22 | MM_ITS ---
EXAMINATION: MM SCREENING DIGITAL BREAST TOMOSYNTHESIS, BILATERAL CLINICAL INFORMATION: Screening. Asymptomatic. The lifetime risk of breast cancer based on the Tyrer-Cuzick Model is 10%. COMPARISON: Mammography: 08/14/2020, 08/09/2019, 08/05/2018 TECHNIQUE: Digital breast tomosynthesis is performed in both the craniocaudal and mediolateral oblique views along with computer-aided detection (CAD). Synthesized 2D images are generated from the tomosynthesis. FINDINGS: There are scattered areas of fibroglandular density (ACR BI-RADS breast composition Category b). There are no significant masses, abnormal calcifications, or other abnormalities. Parenchymal pattern is similar to prior studies. There are no significant changes. MM/MM tomosynthesis screening BI IMPRESSION: No mammographic evidence of malignancy. ASSESSMENT: BI-RADS 1: Negative RECOMMENDATION: Routine annual mammography screening. This patient's information was entered into a reminder system with a target due date for their next mammogram.
== END 2021-08-22 11:14 | disposition home or self-care (01) ==
LOC: HO.MAMMO 11:13
PROVIDERS: PCP Internal Medicine; Visit Provider Internal Medicine
DX: Z12.31 Encounter for screening mammogram for malignant neoplasm of breast (principal)
CPT/HCPCS: 77063; 77067

== ENCOUNTER → 2021-09-03 09:20 | Outpatient (BNVA) | payer OTHER, SELFPAY | PROVIDERS: PCP Internal Medicine; Visit Provider Obstetrics & Gynecology ==

== ENCOUNTER 2021-09-17 08:55 | Outpatient (REF) | payer OTHER, SELFPAY ==
--- NOTE | ~2021-09-17 | MM_ITS ---
EXAMINATION: BONE DENSITOMETRY CLINICAL INDICATION: Noninfected gastroenteritis and colitis, unspecified. COMPARISON: This is the patient's baseline examination. TECHNIQUE: Using a [employer] DXA System (software version: 13.1) manufactured by [employer], dual-energy x-ray absorptiometry was performed of the lumbar spine and left hip. The images are of good technical quality. Summary results are attached. FINDINGS: AP SPINE L1-L2 (excluding L3 and L4): The data of L1-L4 has been changed to exclude the L3 and L4 vertebral bodies, because degenerative sclerosis at these levels may cause overestimation of lumbar spine density. BMD 0.994 g/cm2, Z-score -1.4, T-score -1.4, osteopenia. LEFT FEMUR, NECK: BMD 0.801 g/cm2, Z-score -1.2, T-score -1.7, osteopenia. LEFT FEMUR, TOTAL: BMD 0.971 g/cm2, Z-score -0.1, T-score -0.3, normal. IDENTIFIED RISK FACTORS: Low calcium intake. Chronic glucocorticoids. Menopause. Secondary osteoporosis (intestinal or bowel disease). HISTORY OF FRACTURE: None listed. MEDICATIONS: Vitamin D. MM/XR DEXA axial skeleton IMPRESSION: 1. DIAGNOSIS: Osteopenia based on the lowest T-score value of -1.7 in the femoral neck applying World Health Organization criteria. 2. 10-YEAR FRACTURE RISK PREDICTION, FRAX: Major osteoporotic fracture (clinical spine, forearm, hip or shoulder) 8.4%. Hip fracture 0.9%. 3. Treatment Recommendations: NOF guidelines recommend consideration for treatment in postmenopausal women and men age 50 and older presenting with the following: -A hip or vertebral (clinical or morphometric) fracture. -T-score less than or equal to -2.5 at the femoral neck or spine after appropriate evaluation to exclude secondary causes. -Low bone mass at the hip or spine and a 10-year fracture probability by FRAX of greater than or equal to 3% for hip fracture or greater than or equal to 20% for major osteoporotic fracture based on the [place] adapted WHO algorithm. 4. Other Recommendations: All treatment decisions require clinical judgment and consideration of individual patient factors, including patient preferences, comorbidities, previous drug use, risk factors not captured in the FRAX model (e.g. frailty, falls, vitamin D deficiency, increased bone turnover, interval significant decline in bone density) and possible under or overestimation of fracture risk by FRAX. Additional medical evaluation for secondary cause of low bone mineral density may be appropriate. FUTURE SCAN RECOMMENDATION: People with diagnosed cases of osteoporosis or at high risk for fracture should have regular bone mineral density tests. For patients eligible for Medicare, routine testing is allowed once every 2 years. The testing frequency can be increased to one year for patients who have rapidly progressing disease, those who are receiving or discontinuing medical therapy to restore bone mass, or have additional risk factors.
== END 2021-09-17 08:56 | disposition home or self-care (01) ==
LOC: HO.MAMMO 08:55
PROVIDERS: PCP Internal Medicine; Visit Provider Internal Medicine
DX: Z13.820 Encounter for screening for osteoporosis (principal); M85.80 Other specified disorders of bone density and structure, unspecified site; Z78.0 Asymptomatic menopausal state; K52.9 Noninfective gastroenteritis and colitis, unspecified; E27.49 Other adrenocortical insufficiency; Z79.899 Other long term (current) drug therapy
CPT/HCPCS: 77080

== ENCOUNTER 2021-09-19 10:31 | Outpatient (REF) | payer OTHER, SELFPAY ==
[2021-09-19 12:24] LABS: Ferritin 31 ng/mL (10-250)
[2021-09-23 15:16] LABS: Zinc 73 mcg/dL (60-130)
[2021-09-25 15:36] LABS: VITAMIN D (1,25 OH) D3 34 pg/mL; Vit D (1,25-Dihydroxy) Total 34 pg/mL (18-72); Vitamin D (1,25 OH) D2 <8 pg/mL
== END 2021-09-19 10:32 | disposition home or self-care (01) ==
LOC: HO.LAB 10:31
PROVIDERS: PCP Internal Medicine; Visit Provider Physician Assistant Medical
DX: L21.8 Other seborrheic dermatitis (principal); L65.0 Telogen effluvium; L64.8 Other androgenic alopecia
CPT/HCPCS: 36415; 82652; 82728; 84630

== ENCOUNTER 2022-02-25 11:22 | Outpatient (REF) | payer OTHER, SELFPAY ==
[2022-02-25 13:33] LABS: MANUAL DIFF FLAG NO
[2022-02-25 13:38] LABS: Basophils Absolute Auto 0.1 X10*3/uL (0.0-0.2); Basophils Percent Auto 1.1 % (0-2); Eosinophils Absolute Auto 0.4 X10*3/uL (0.0-0.4); Hematocrit 40.1 % (37.0-47.0); Hemoglobin 13.6 g/dl (12.0-16.0); Imm Gran Abs Auto 0.03 X10*3/uL (0.00-0.03); Imm Gran Pct Auto 0.4 % (0.0-0.4); Lymphocytes Absolute Auto 2.1 X10*3/uL (1.2-4.9); Lymphocytes Percent Auto 28.8 % (20-40); Mean Corpuscular HGB Conc 33.9 g/dl (31.0-35.0); Mean Corpuscular Hemoglobin 31.1 pg (27.0-33.0); Mean Corpuscular Volume 91.6 fL (80.0-98.0); Mean Platelet Volume 9.7 fL (9.4-12.3); Monocytes Absolute Auto 0.5 X10*3/uL (0.1-1.2); Monocytes Percent Auto 6.3 % (2-11); Neutrophils Absolute Auto 4.2 x10*3/uL (2.0-8.3); Neutrophils Percent Auto 58.4 % (45-73); Platelet Count 370 X10*3/uL (160-400); Red Blood Count 4.38 X10*6/uL (4.20-5.50); Red Cell Distribution Width 12.6 % (11.0-16.0); White Blood Count 7.2 X10*3/uL (4.8-10.8)
[2022-02-25 13:52] LABS: Alanine Aminotransferase 62 U/L (0-31); Albumin Level 4.4 g/dL (3.5-5.0); Alkaline Phosphatase 82 U/L (39-117); Anion Gap 15 (12-20); Aspartate Amino Transferase 42 U/L (5-31); Bilirubin Total 0.5 mg/dL (0.0-1.0); Blood Urea Nitrogen 10 mg/dL (9-16); Calcium 9.5 mg/dL (8.4-10.2); Carbon Dioxide 24 mmol/L (22-29); Chloride 107 mmol/L (96-108); Estimated Glomerular Filt Rate > 60; Glucose Fasting 93 mg/dL (60-99); Potassium 4.9 mmol/L (3.3-5.1); Sodium 141 mmol/L (135-145); Total Protein 7.4 g/dL (6.5-8.0)
== END 2022-02-25 11:23 | disposition home or self-care (01) ==
LOC: HO.10HDL 11:22
PROVIDERS: Visit Provider Nurse Practitioner Psychiatric/Mental Health
DX: F50.9 Eating disorder, unspecified (principal)
CPT/HCPCS: 36415; 80053; 85025

== ENCOUNTER 2022-03-10 08:19 | Outpatient (REF) | payer OTHER, SELFPAY ==
[2022-03-10 11:04] LABS: Alanine Aminotransferase 54 U/L (0-31); Albumin Level 4.2 g/dL (3.5-5.0); Alkaline Phosphatase 73 U/L (39-117); Anion Gap 15 (12-20); Aspartate Amino Transferase 35 U/L (5-31); Bilirubin Total 0.5 mg/dL (0.0-1.0); Blood Urea Nitrogen 16 mg/dL (9-16); Calcium 9.3 mg/dL (8.4-10.2); Carbon Dioxide 23 mmol/L (22-29); Chloride 108 mmol/L (96-108); Estimated Glomerular Filt Rate > 60; Glucose Fasting 104 mg/dL (60-99); Potassium 4.6 mmol/L (3.3-5.1); Sodium 141 mmol/L (135-145); Total Protein 7.2 g/dL (6.5-8.0)
[2022-03-10 11:08] LABS: Amylase 58 U/L (28-100)
== END 2022-03-10 08:20 | disposition home or self-care (01) ==
LOC: HO.10HDLR 08:19
PROVIDERS: Visit Provider Nurse Practitioner Psychiatric/Mental Health
DX: F50.9 Eating disorder, unspecified (principal)
CPT/HCPCS: 36415; 80053; 82150; 83735; 84100

== ENCOUNTER 2022-03-16 08:15 | Outpatient (REF) | payer OTHER, SELFPAY ==
[2022-03-16 11:12] LABS: Alanine Aminotransferase 62 U/L (0-31); Albumin Level 4.2 g/dL (3.5-5.0); Alkaline Phosphatase 73 U/L (39-117); Anion Gap 17 (12-20); Aspartate Amino Transferase 42 U/L (5-31); Bilirubin Total 0.5 mg/dL (0.0-1.0); Blood Urea Nitrogen 15 mg/dL (9-16); Calcium 9.3 mg/dL (8.4-10.2); Carbon Dioxide 22 mmol/L (22-29); Chloride 106 mmol/L (96-108); Estimated Glomerular Filt Rate > 60; Glucose Fasting 105 mg/dL (60-99); Magnesium 2.2 mg/dL (1.6-2.6); Phosphorus 3.7 mg/dL (2.7-4.5); Potassium 4.8 mmol/L (3.3-5.1); Sodium 140 mmol/L (135-145); Total Protein 7.1 g/dL (6.5-8.0)
[2022-03-16 11:15] LABS: Amylase 48 U/L (28-100)
== END 2022-03-16 08:16 | disposition home or self-care (01) ==
LOC: HO.10HDLR 08:15
PROVIDERS: Visit Provider Nurse Practitioner Psychiatric/Mental Health
DX: F50.9 Eating disorder, unspecified (principal)
CPT/HCPCS: 36415; 80053; 82150; 83735; 84100

== ENCOUNTER 2022-03-23 08:00 | Outpatient (REF) | payer OTHER, SELFPAY ==
[2022-03-23 09:12] LABS: Alanine Aminotransferase 74 U/L (0-31); Albumin Level 4.5 g/dL (3.5-5.0); Alkaline Phosphatase 76 U/L (39-117); Anion Gap 16 (12-20); Aspartate Amino Transferase 51 U/L (5-31); Bilirubin Total 0.5 mg/dL (0.0-1.0); Blood Urea Nitrogen 12 mg/dL (9-16); Calcium 9.7 mg/dL (8.4-10.2); Carbon Dioxide 23 mmol/L (22-29); Chloride 108 mmol/L (96-108); Estimated Glomerular Filt Rate > 60; Glucose Random 106 mg/dL (60-115); Magnesium 2.2 mg/dL (1.6-2.6); Phosphorus 3.4 mg/dL (2.7-4.5); Potassium 4.9 mmol/L (3.3-5.1); Sodium 142 mmol/L (135-145); Total Protein 7.3 g/dL (6.5-8.0)
[2022-03-23 09:17] LABS: Amylase 50 U/L (28-100)
== END 2022-03-23 08:01 | disposition home or self-care (01) ==
LOC: HO.LAB 08:00
PROVIDERS: PCP Internal Medicine; Visit Provider Nurse Practitioner Psychiatric/Mental Health
DX: F50.9 Eating disorder, unspecified (principal)
CPT/HCPCS: 36415; 80053; 82150; 83735; 84100

== ENCOUNTER 2022-03-30 08:15 | Outpatient (REF) | payer OTHER, SELFPAY ==
[2022-03-30 11:03] LABS: Alanine Aminotransferase 61 U/L (0-31); Albumin Level 4.4 g/dL (3.5-5.0); Alkaline Phosphatase 73 U/L (39-117); Anion Gap 15 (12-20); Aspartate Amino Transferase 43 U/L (5-31); Bilirubin Total 0.6 mg/dL (0.0-1.0); Blood Urea Nitrogen 18 mg/dL (9-16); Calcium 9.6 mg/dL (8.4-10.2); Carbon Dioxide 25 mmol/L (22-29); Chloride 106 mmol/L (96-108); Estimated Glomerular Filt Rate > 60; Glucose Fasting 93 mg/dL (60-99); Magnesium 2.1 mg/dL (1.6-2.6); Phosphorus 4.3 mg/dL (2.7-4.5); Potassium 4.5 mmol/L (3.3-5.1); Sodium 141 mmol/L (135-145); Total Protein 7.2 g/dL (6.5-8.0)
[2022-03-30 11:07] LABS: Amylase 53 U/L (28-100)
== END 2022-03-30 08:16 | disposition home or self-care (01) ==
LOC: HO.10HDLR 08:15
PROVIDERS: Visit Provider Nurse Practitioner Psychiatric/Mental Health
DX: F50.9 Eating disorder, unspecified (principal)
CPT/HCPCS: 36415; 80053; 82150; 83735; 84100

== ENCOUNTER 2022-04-06 08:04 | Outpatient (REF) | payer OTHER, SELFPAY ==
[2022-04-06 09:11] LABS: Alanine Aminotransferase 61 U/L (0-31); Albumin Level 4.3 g/dL (3.5-5.0); Alkaline Phosphatase 76 U/L (39-117); Amylase 47 U/L (28-100); Anion Gap 15 (12-20); Aspartate Amino Transferase 44 U/L (5-31); Bilirubin Total 0.5 mg/dL (0.0-1.0); Blood Urea Nitrogen 17 mg/dL (9-16); Calcium 9.2 mg/dL (8.4-10.2); Carbon Dioxide 23 mmol/L (22-29); Chloride 108 mmol/L (96-108); Estimated Glomerular Filt Rate > 60; Glucose Random 111 mg/dL (60-115); Magnesium 2.2 mg/dL (1.6-2.6); Potassium 4.6 mmol/L (3.3-5.1); Sodium 141 mmol/L (135-145); Total Protein 7.2 g/dL (6.5-8.0)
== END 2022-04-06 08:05 | disposition home or self-care (01) ==
LOC: HO.LAB 08:04
PROVIDERS: PCP Internal Medicine; Visit Provider Nurse Practitioner Psychiatric/Mental Health
DX: F50.9 Eating disorder, unspecified (principal)
CPT/HCPCS: 36415; 80053; 82150; 83735; 84100

== ENCOUNTER 2022-04-13 08:09 | Outpatient (REF) | payer OTHER, SELFPAY ==
[2022-04-13 09:23] LABS: Alanine Aminotransferase 65 U/L (0-31); Albumin Level 4.2 g/dL (3.5-5.0); Alkaline Phosphatase 69 U/L (39-117); Amylase 46 U/L (28-100); Anion Gap 15 (12-20); Aspartate Amino Transferase 47 U/L (5-31); Bilirubin Total 0.5 mg/dL (0.0-1.0); Blood Urea Nitrogen 17 mg/dL (9-16); Calcium 9.2 mg/dL (8.4-10.2); Carbon Dioxide 24 mmol/L (22-29); Chloride 108 mmol/L (96-108); Estimated Glomerular Filt Rate > 60; Glucose Random 103 mg/dL (60-115); Magnesium 2.1 mg/dL (1.6-2.6); Potassium 4.5 mmol/L (3.3-5.1); Sodium 142 mmol/L (135-145); Total Protein 6.9 g/dL (6.5-8.0)
== END 2022-04-13 08:10 | disposition home or self-care (01) ==
LOC: HO.LAB 08:09
PROVIDERS: PCP Internal Medicine; Visit Provider Nurse Practitioner Psychiatric/Mental Health
DX: F50.9 Eating disorder, unspecified (principal)
CPT/HCPCS: 36415; 80053; 82150; 83735; 84100

== ENCOUNTER 2022-04-20 08:25 | Outpatient (REF) | payer OTHER, SELFPAY ==
[2022-04-20 13:48] LABS: Alanine Aminotransferase 63 U/L (0-31); Albumin Level 4.4 g/dL (3.5-5.0); Alkaline Phosphatase 69 U/L (39-117); Amylase 51 U/L (28-100); Anion Gap 15 (12-20); Aspartate Amino Transferase 49 U/L (5-31); Bilirubin Total 0.6 mg/dL (0.0-1.0); Blood Urea Nitrogen 17 mg/dL (9-16); Calcium 9.7 mg/dL (8.4-10.2); Carbon Dioxide 26 mmol/L (22-29); Chloride 105 mmol/L (96-108); Estimated Glomerular Filt Rate > 60; Glucose Fasting 100 mg/dL (60-99); Magnesium 2.2 mg/dL (1.6-2.6); Phosphorus 3.7 mg/dL (2.7-4.5); Sodium 141 mmol/L (135-145); Total Protein 7.4 g/dL (6.5-8.0)
== END 2022-04-20 08:26 | disposition home or self-care (01) ==
LOC: HO.10HDLR 08:25
PROVIDERS: Visit Provider Nurse Practitioner Psychiatric/Mental Health
DX: F50.9 Eating disorder, unspecified (principal)
CPT/HCPCS: 36415; 80053; 82150; 83735; 84100

== ENCOUNTER 2022-04-23 08:12 | Outpatient (REF) | payer OTHER, SELFPAY ==
[2022-04-23 10:48] LABS: MANUAL DIFF FLAG NO
[2022-04-23 11:02] LABS: Basophils Absolute Auto 0.1 X10*3/uL (0.0-0.2); Basophils Percent Auto 0.8 % (0-2); Eosinophils Absolute Auto 0.5 X10*3/uL (0.0-0.4); Hematocrit 40.5 % (37.0-47.0); Hemoglobin 13.5 g/dl (12.0-16.0); Imm Gran Abs Auto 0.02 X10*3/uL (0.00-0.03); Imm Gran Pct Auto 0.3 % (0.0-0.4); Lymphocytes Absolute Auto 2.4 X10*3/uL (1.2-4.9); Lymphocytes Percent Auto 31.2 % (20-40); Mean Corpuscular HGB Conc 33.3 g/dl (31.0-35.0); Mean Corpuscular Hemoglobin 31.3 pg (27.0-33.0); Mean Platelet Volume 9.7 fL (9.4-12.3); Monocytes Absolute Auto 0.4 X10*3/uL (0.1-1.2); Monocytes Percent Auto 5.6 % (2-11); Neutrophils Absolute Auto 4.3 x10*3/uL (2.0-8.3); Neutrophils Percent Auto 56.1 % (45-73); Platelet Count 328 X10*3/uL (160-400); Red Blood Count 4.31 X10*6/uL (4.20-5.50); Red Cell Distribution Width 12.7 % (11.0-16.0); White Blood Count 7.6 X10*3/uL (4.8-10.8)
[2022-04-23 11:07] LABS: C Reactive Protein 0.65 mg/dL (< or = 0.50)
[2022-04-23 16:01] LABS: Erythrocyte Sedimentation Rate 16 MM/HR (0-20)
== END 2022-04-23 08:13 | disposition home or self-care (01) ==
LOC: HO.10HDLR 08:12
PROVIDERS: Visit Provider Nurse Practitioner Psychiatric/Mental Health
DX: F50.89 Other specified eating disorder (principal)
CPT/HCPCS: 36415; 85025; 85652; 86140

== ENCOUNTER 2022-04-27 08:02 | Outpatient (REF) | payer OTHER, SELFPAY ==
[2022-04-27 11:13] LABS: Alanine Aminotransferase 63 U/L (0-31); Albumin Level 4.5 g/dL (3.5-5.0); Alkaline Phosphatase 68 U/L (39-117); Amylase 52 U/L (28-100); Anion Gap 15 (12-20); Aspartate Amino Transferase 47 U/L (5-31); Bilirubin Total 0.7 mg/dL (0.0-1.0); Blood Urea Nitrogen 19 mg/dL (9-16); Calcium 9.9 mg/dL (8.4-10.2); Carbon Dioxide 25 mmol/L (22-29); Chloride 107 mmol/L (96-108); Estimated Glomerular Filt Rate > 60; Glucose Fasting 100 mg/dL (60-99); Magnesium 2.2 mg/dL (1.6-2.6); Phosphorus 4.3 mg/dL (2.7-4.5); Potassium 4.8 mmol/L (3.3-5.1); Sodium 142 mmol/L (135-145); Total Protein 7.6 g/dL (6.5-8.0)
== END 2022-04-27 08:03 | disposition home or self-care (01) ==
LOC: HO.10HDL 08:02
PROVIDERS: Visit Provider Nurse Practitioner Psychiatric/Mental Health
DX: F50.89 Other specified eating disorder (principal)
CPT/HCPCS: 36415; 80053; 82150; 83735; 84100

== ENCOUNTER 2022-05-20 09:19 | Outpatient (REF) | payer OTHER, SELFPAY ==
[2022-05-20 10:39] LABS: MANUAL DIFF FLAG NO
[2022-05-20 10:50] LABS: Basophils Absolute Auto 0.1 X10*3/uL (0.0-0.2); Basophils Percent Auto 0.7 % (0-2); Eosinophils Absolute Auto 0.5 X10*3/uL (0.0-0.4); Eosinophils Percent Auto 5.7 % (0-4); Hematocrit 41.3 % (37.0-47.0); Hemoglobin 13.6 g/dl (12.0-16.0); Imm Gran Abs Auto 0.03 X10*3/uL (0.00-0.03); Imm Gran Pct Auto 0.4 % (0.0-0.4); Lymphocytes Absolute Auto 2.4 X10*3/uL (1.2-4.9); Lymphocytes Percent Auto 30.3 % (20-40); Mean Corpuscular HGB Conc 32.9 g/dl (31.0-35.0); Mean Corpuscular Hemoglobin 30.9 pg (27.0-33.0); Mean Corpuscular Volume 93.9 fL (80.0-98.0); Mean Platelet Volume 9.8 fL (9.4-12.3); Monocytes Absolute Auto 0.5 X10*3/uL (0.1-1.2); Monocytes Percent Auto 6.1 % (2-11); Neutrophils Absolute Auto 4.6 x10*3/uL (2.0-8.3); Neutrophils Percent Auto 56.8 % (45-73); Platelet Count 309 X10*3/uL (160-400); Red Cell Distribution Width 12.3 % (11.0-16.0)
[2022-05-20 11:15] LABS: Estimated Average Glucose 103 mg/dL; Hemoglobin A1c % 5.2 %
[2022-05-20 11:18] LABS: Alanine Aminotransferase 63 U/L (0-31); Albumin Level 4.4 g/dL (3.5-5.0); Alkaline Phosphatase 71 U/L (39-117); Anion Gap 14 (12-20); Aspartate Amino Transferase 45 U/L (5-31); Bilirubin Total 0.4 mg/dL (0.0-1.0); Blood Urea Nitrogen 16 mg/dL (9-16); Calcium 9.5 mg/dL (8.4-10.2); Carbon Dioxide 25 mmol/L (22-29); Chloride 108 mmol/L (96-108); Cholesterol 198 mg/dL; Estimated Glomerular Filt Rate > 60; Glucose Random 99 mg/dL (60-115); HDL Cholesterol 41 mg/dL; LDL Cholesterol Calculated 126 mg/dl; Potassium 5.2 mmol/L (3.3-5.1); Sodium 142 mmol/L (135-145); Total Protein 7.4 g/dL (6.5-8.0); Triglycerides 155 mg/dL
[2022-05-20 11:39] LABS: Free T4 (Free Thyroxine) 0.77 ng/dL (0.71-1.85); Thyroid Stimulating Hormone 18.33 uIU/mL (0.32-4.0)
== END 2022-05-20 09:20 | disposition home or self-care (01) ==
LOC: HO.10HDL 09:19
PROVIDERS: Visit Provider Internal Medicine
DX: K52.9 Noninfective gastroenteritis and colitis, unspecified (principal); E78.00 Pure hypercholesterolemia, unspecified; R73.01 Impaired fasting glucose
CPT/HCPCS: 36415; 80053; 80061; 83036; 84439; 84443; 85025

== ENCOUNTER 2022-07-10 08:17 | Outpatient (REF) | payer OTHER, SELFPAY ==
[2022-07-10 11:25] LABS: Ferritin 105 ng/mL (10-250); Thyroid Stimulating Hormone 21.91 uIU/mL (0.32-4.0)
== END 2022-07-10 08:18 | disposition home or self-care (01) ==
LOC: HO.10HDL 08:17
PROVIDERS: Absent Provider Physician Assistant Medical; Visit Provider Internal Medicine
DX: E03.9 Hypothyroidism, unspecified (principal); L21.8 Other seborrheic dermatitis; L82.1 Other seborrheic keratosis; L65.0 Telogen effluvium; L64.8 Other androgenic alopecia
CPT/HCPCS: 36415; 82728; 84439; 84443

== ENCOUNTER 2022-08-10 10:36 | Outpatient (REF) | payer OTHER, SELFPAY ==
[2022-08-10 13:59] LABS: Free T4 (Free Thyroxine) 1.03 ng/dL (0.71-1.85); Thyroid Stimulating Hormone 10.65 uIU/mL (0.32-4.0)
== END 2022-08-10 10:37 | disposition home or self-care (01) ==
LOC: HO.10HDL 10:36
PROVIDERS: Visit Provider Internal Medicine
DX: E03.9 Hypothyroidism, unspecified (principal); M54.50 Low back pain, unspecified
CPT/HCPCS: 36415; 84439; 84443

== ENCOUNTER 2022-08-28 10:49 | Outpatient (REF) | payer OTHER, SELFPAY ==
--- NOTE | ~2022-08-28 | MM_ITS ---
EXAMINATION: MM SCREENING DIGITAL BREAST TOMOSYNTHESIS, BILATERAL CLINICAL INFORMATION: Screening. Asymptomatic. The lifetime risk of breast cancer based on the Tyrer-Cuzick Model is 11%. COMPARISON: Mammography: 08/22/2021, 08/14/2020, 08/09/2019 TECHNIQUE: Digital breast tomosynthesis is performed in both the craniocaudal and mediolateral oblique views along with computer-aided detection (CAD). Synthesized 2D images are generated from the tomosynthesis. Additional right CC and right MLO views are provided. FINDINGS: There are scattered areas of fibroglandular density (ACR BI-RADS breast composition Category b). There are no significant masses, abnormal calcifications, or other abnormalities. Parenchymal pattern is similar to prior studies. There is no developing density or architectural abnormality. The axilla and skin contours are unremarkable. No significant changes. MM/MM tomosynthesis screening BI IMPRESSION: No mammographic evidence of malignancy. ASSESSMENT: BI-RADS 1: Negative RECOMMENDATION: Routine annual mammography screening. This patient's information was entered into a reminder system with a target due date for their next mammogram.
== END 2022-08-28 10:50 | disposition home or self-care (01) ==
LOC: HO.MAMMO 10:49
PROVIDERS: PCP Internal Medicine; Visit Provider Internal Medicine
DX: Z12.31 Encounter for screening mammogram for malignant neoplasm of breast (principal)
CPT/HCPCS: 77063; 77067

== ENCOUNTER 2022-09-03 12:08 | Outpatient (REF) | payer OTHER, SELFPAY ==
--- NOTE | ~2022-09-03 | XR_ITS ---
EXAMINATION: XR KNEE AP STANDING CLINICAL INFORMATION: Dorsalgia COMPARISON: 07/28/2019 TECHNIQUE: AP bilateral standing view of the knees was obtained. FINDINGS: Bones and soft tissues are normal. No fracture or joint effusion. Alignment is anatomic. Joint spaces are well maintained. No abnormal soft tissue calcification. XR/XR knee standing BI IMPRESSION: Normal knees.
--- NOTE | ~2022-09-03 | XR_ITS ---
EXAMINATION: XR CHEST CLINICAL INFORMATION: Posterior chest pain, dorsalgia COMPARISON: Chest radiographs 03/19/2013, 06/17/2011; lumbar radiographs 09/03/2022, CT abdomen 03/18/2021 TECHNIQUE: Frontal and lateral views of the chest. FINDINGS: There is no pneumothorax, pleural reaction, airspace consolidation, or effusion. The costophrenic sulci are clear. No hyperinflation. There is an oval circumscribed density right medial base just lateral to the right cardiophrenic angle, likely vascular marking en face. No visible nodule on lateral view. The heart is normal in size. The hilar and mediastinal contours and bony structures are unremarkable. XR/XR chest 2V IMPRESSION: -No pneumothorax or pleural reaction. Lungs clear. -Small circumscribed oval density right base just above the diaphragm, suspect artifact from vascular markings. Suggest follow-up chest.
--- NOTE | ~2022-09-03 | XR_ITS ---
EXAMINATION: XR lumbar spine 2-3V CLINICAL INFORMATION: Reason for Exam M54.50 - Low back pain, unspecified COMPARISON: None TECHNIQUE: 3 views of the lumbar spine FINDINGS: 5 nonrib-bearing lumbar-type vertebral bodies. Vertebral body heights are maintained. Alignment is maintained. Minimal degenerative change and small anterior disc osteophyte complexes. Disc space heights are maintained. Right upper quadrant cholecystectomy clips. XR/XR lumbar spine 2-3V IMPRESSION: Mild spondylosis of the lumbar spine, as above detailed.
== END 2022-09-03 12:09 | disposition home or self-care (01) ==
LOC: HO.XRAY 12:08
PROVIDERS: PCP Internal Medicine; Visit Provider Internal Medicine
DX: M54.50 Low back pain, unspecified (principal); M54.9 Dorsalgia, unspecified
CPT/HCPCS: 71046; 72100; 73565

== ENCOUNTER 2022-09-07 08:54 | Outpatient (REF) | payer OTHER, SELFPAY ==
[2022-09-11 02:04] LABS: HPV mRNA E6/E7 rflx Not Detected (Not Detected)
== END 2022-09-07 08:55 | disposition home or self-care (01) ==
LOC: HO.LNP 08:54
PROVIDERS: PCP Internal Medicine; Visit Provider Obstetrics & Gynecology
DX: Z01.419 Encounter for gynecological examination (general) (routine) without abnormal findings (principal); E53.8 Deficiency of other specified B group vitamins
CPT/HCPCS: 87624; 88142

== ENCOUNTER 2022-09-21 10:15 | Outpatient (REF) | payer OTHER, SELFPAY ==
[2022-09-21 12:01] LABS: Free T4 (Free Thyroxine) 1.08 ng/dL (0.71-1.85); Thyroid Stimulating Hormone 1.73 uIU/mL (0.32-4.0)
== END 2022-09-21 10:16 | disposition home or self-care (01) ==
LOC: HO.10HDL 10:15
PROVIDERS: Visit Provider Internal Medicine
DX: E03.9 Hypothyroidism, unspecified (principal)
CPT/HCPCS: 36415; 84439; 84443

== ENCOUNTER → 2022-10-22 08:39 | Outpatient (REF) | payer OTHER, SELFPAY | LOC: HO.SL 08:39 | PROVIDERS: PCP Internal Medicine; Visit Provider Internal Medicine | DX: G47.10 Hypersomnia, unspecified (principal); R06.83 Snoring | CPT/HCPCS: 95806 ==

== ENCOUNTER 2022-11-03 09:05 | Outpatient (REF) | payer OTHER, SELFPAY ==
[2022-11-03 12:02] LABS: Alanine Aminotransferase 87 U/L (0-31); Albumin Level 4.4 g/dL (3.5-5.0); Alkaline Phosphatase 77 U/L (39-117); Anion Gap 12 (12-20); Aspartate Amino Transferase 71 U/L (5-31); Bilirubin Total 0.9 mg/dL (0.0-1.0); Blood Urea Nitrogen 14 mg/dL (9-16); Calcium 9.5 mg/dL (8.4-10.2); Carbon Dioxide 24 mmol/L (22-29); Chloride 110 mmol/L (96-108); Estimated Glomerular Filt Rate > 60; Glucose Random 109 mg/dL (60-115); Potassium 4.3 mmol/L (3.3-5.1); Sodium 142 mmol/L (135-145); Total Protein 7.2 g/dL (6.5-8.0)
[2022-11-03 12:34] LABS: Free T4 (Free Thyroxine) 1.03 ng/dL (0.71-1.85); Thyroid Stimulating Hormone 1.25 uIU/mL (0.32-4.0)
[2022-11-05 09:59] LABS: Thyroglobulin Antibodies 11 IU/mL (< or = 1)
== END 2022-11-03 09:06 | disposition home or self-care (01) ==
LOC: HO.10HDL 09:05
PROVIDERS: Visit Provider Internal Medicine
DX: E03.9 Hypothyroidism, unspecified (principal)
CPT/HCPCS: 36415; 80053; 84439; 84443; 86800

== ENCOUNTER 2023-03-09 10:08 | Outpatient (AMB) | payer OTHER, SELFPAY ==
--- NOTE | 2023-03-09 11:48 | AM.OFFWIN_ITS ---
Intake Vital Signs 03/09/23 11:49 Weight 213 lb BP 110/74 Blood Pressure Location Lt brachial Position Sitting Pulse 82 Pulse Source Pulse Oximeter Pulse Oximetry (%) 98 Oxygen Delivery Method Room Air Intake Visit Reasons: EP LT knee pain Intake Note: Patient here for left knee pain. pt states since beginning of january her knee has been popping and when that happens she gets a shooting pain/numbness. Patient Tobacco Use Status: Former Tobacco user Quit Date: 1993 Allergies latex Allergy (Unknown, Verified 03/09/23 12:26) Hives penicillin V Allergy (Unknown, Verified 03/09/23 12:26) oral swelling Medication List - Last Reconciled 03/09/23 by Kain Carroll MD ascorbate calcium (vitamin C) 500 mg PO DAILY cholecalciferol (vitamin D3) 25 mcg PO DAILY cyanocobalamin (vitamin B-12) 1,000 mcg PO DAILY levothyroxine 137 mcg orally ; 90 days miscellaneous medical supply 1 ea miscellaneous DAILY sertraline 150 mg (1.5 x 100 mg) PO DAILY 90 days Shower Chair As directed Do you need a note to return to daycare/school/sports/work: No HPI EP LT knee pain HPI Details 52-year-old female presents to the [facility] for a sick visit. Patient is reporting pain in the left knee. No fall or injury reported. Symptoms present for the past 2 weeks. [facility] Medical History Abnormal colonoscopy (~05/27/21) Cholelithiasis Endometrial polyp Finger strain Generalized anxiety disorder [facility] discharge follow-up Hypercholesterolemia Hypothyroidism Insomnia Obesity (BMI 30-39.9) Osteoarthritis Retroperitoneal abscess Screening for osteoporosis Vitamin D deficiency Well woman exam Surgical History History of colectomy History of ERCP Hx laparoscopic cholecystectomy Hx of colonoscopy Inflammatory bowel disease Family History Mother Colon cancer Lung cancer Father Medical history unknown Paternal Aunt Breast cancer Daughter No problems noted. Daughter No problems noted. Son Substance use disorder Mental health disorder Son No problems noted. Son No problems noted. Son No problems noted. Son No problems noted. Social History (Reviewed 09/07/22 @ 09:12 by TONYA Livingston Housing: House Alcohol intake: current Alcohol intake frequency: holidays/special occasions only Patient Tobacco Use Status: Former Tobacco user Quit Date: 1993 Tobacco use type: Cigarette Years Smoked: quit 1993 e-Cigarette/Vaping Use: Never Used Second Hand Smoke Exposure: No service: No Current occupational status: employed Sexual orientation: Straight/Heterosexual Gender identity: Female Cognitive needs: No Hearing needs: No Vision needs: Yes Female Reproductive History Menstrual Age of Menarche: 11 Physical Exam Vital Signs: Last Vital Signs Pulse 82 03/09/23 11:49 BP 110/74 03/09/23 11:49 Pulse Ox 98 03/09/23 11:49 Oxygen Delivery Method Room Air 03/09/23 11:49 Extrem Other: Left knee: No joint line tenderness. Minimal discomfort on flexion and full extension. Gait: Negative Assessment & Plan Assessment & Plan (1) Sprain of left knee: Code(s): S83.92XA - Sprain of unspecified site of left knee, initial encounter Qualifiers: Encounter type: initial encounter Involved ligament of knee: unspecified ligament Qualified Code(s): S83.92XA - Sprain of unspecified site of left knee, initial encounter Plan: X-ray images were personally reviewed by me. Knee brace provided. Anti- inflammatories called in. If symptoms not better to follow-up here. Coding Level of Care Code Est Pt Level 4 (56821) Diagnoses Sprain of left knee, unspecified ligament, initial encounter S83.92XA Encounter type: initial encounter Involved ligament of knee: unspecified ligament
[2023-03-09 11:49] VITALS: BP 110/74; PULSE 82; O2SAT 98
== END 2023-03-09 13:53 | disposition home or self-care (01) ==
PROVIDERS: PCP Internal Medicine; Visit Provider Internal Medicine
DX: S83.92XA Sprain of unspecified site of left knee, initial encounter (principal)
CPT/HCPCS: 99214

== ENCOUNTER 2023-03-09 12:24 | Outpatient (REF) | payer OTHER, SELFPAY ==
--- NOTE | ~2023-03-09 | XR_ITS ---
EXAMINATION: XR KNEE, LEFT CLINICAL INFORMATION: Left knee sprain. COMPARISON: Knees 09/03/2022. TECHNIQUE: Four views of the left knee. FINDINGS: Small suprapatellar joint effusion. Alignment is anatomic. No discrete fracture. No significant degenerative changes. XR/XR knee LT 4V IMPRESSION: Small suprapatellar joint effusion. No visible fracture.
== END 2023-03-09 12:25 | disposition home or self-care (01) ==
LOC: HO.HMGCX 12:24
PROVIDERS: PCP Internal Medicine; Visit Provider Internal Medicine
DX: S83.92XA Sprain of unspecified site of left knee, initial encounter (principal)
CPT/HCPCS: 73564

== ENCOUNTER 2023-03-10 14:18 | Outpatient (AMB) | payer OTHER, SELFPAY ==
[2023-03-10 14:21] VITALS: BP 132/70; PULSE 75; O2SAT 98; BMI 41.8
--- NOTE | 2023-03-10 14:21 | A.OFFPC_ITS ---
Vital Signs 03/10/23 14:21 Height 5 ft Weight 214 lb BMI 41.8 BP 132/70 Blood Pressure Location Lt brachial Position Sitting Pulse 75 Pulse Source Pulse Oximeter Pulse Oximetry (%) 98 Oxygen Delivery Method Room Air Intake Visit Reasons: knee pain, per Dr Reyes Allergies latex Allergy (Unknown, Verified 03/10/23 14:21) Hives penicillin V Allergy (Unknown, Verified 03/10/23 14:21) oral swelling Tobacco use date assessed: 09/03/22 Dental Screening Dental Screen Date: 03/10/23 Did you have a dental visit in the last 12 months?: Yes Did you have a dental problem in the last 6 months where you did not have access to dental care?: No Was dental information given to patient?: Patient has dentist HPI knee pain, per Dr Reyes HPI Details 52-year-old obese female with a history of hypothyroidism inflammatory bowel disease moderately severe depression hypercholesterolemia impaired glucose tolerance coming in for an acute problem. Last seen in November 2022. Mammogram is up-to-date with bone density up-to-date Paps up-to-date. Complains of left knee pain x-ray showing small suprapatellar joint effusion no fracture. Patient went to the Urgent Center February 2023 complained in January of having the knee popping then shooting pains and this prompted for consultation. [facility] Medical History Abnormal colonoscopy (~05/27/21) Cholelithiasis Endometrial polyp Finger strain Generalized anxiety disorder [facility] discharge follow-up Hypercholesterolemia Hypothyroidism Insomnia Obesity (BMI 30-39.9) Osteoarthritis Retroperitoneal abscess Screening for osteoporosis Vitamin D deficiency Well woman exam Surgical History History of colectomy History of ERCP Hx laparoscopic cholecystectomy Hx of colonoscopy Inflammatory bowel disease Family History Mother Colon cancer Lung cancer Father Medical history unknown Paternal Aunt Breast cancer Daughter No problems noted. Daughter No problems noted. Son Substance use disorder Mental health disorder Son No problems noted. Son No problems noted. Son No problems noted. Son No problems noted. Social History Housing: House Alcohol intake: current Alcohol intake frequency: holidays/special occasions only Patient Tobacco Use Status: Former Tobacco user Quit Date: 1993 Tobacco use type: Cigarette Years Smoked: quit 1993 e-Cigarette/Vaping Use: Never Used Second Hand Smoke Exposure: No service: No Current occupational status: employed Sexual orientation: Straight/Heterosexual Gender identity: Female Cognitive needs: No Hearing needs: No Vision needs: Yes Female Reproductive History Menstrual Age of Menarche: 11 Questionnaire PHQ-9 Over the last 2 weeks, how often have you been bothered by any of the following problems? 1. Little interest or pleasure in doing things: several days 2. Feeling down, depressed, or hopeless: several days 3. Trouble falling or staying asleep, or sleeping too much: several days 4. Feeling tired or having little energy: several days 5. Poor appetite or overeating: several days 6. Feeling bad about yourself - or that you are a failure or have let yourself or your family down: several days 7. Trouble concentrating on things, such as reading the newspaper or watching te levision: several days 8. Moving or speaking so slowly that other people could have noticed. Or the opposite - being so fidgety or restless that you have been moving around a lot more than usual: several days 9. Thoughts that you would be better off or of hurting yourself in some way: several days Total score: 9 Depression Screening Interpretation: Positive Source: Developed by Drs. Walter Luis, Cathy Brannon, Bruce Resendez and colleagues, with an educational osman from [employer]. Thrive Questionnaire Date Thrive assessed: 07/24/22 AUDIT C Alcohol Use Questionnaire (AUDIT-C) 1. How often do you have a drink containing alcohol?: Never 2. How many drinks containing alcohol do you have on a typical day when you are drinking?: 1 or 2 3. How often do you have six or more drinks on one occasion?: Never Total Score: 0 MIMI-7 AMB Questionnaire MIMI-7 Date MIMI - 7 assessed: 07/24/22 Source: Developed by Drs. Walter Luis, Cathy Brannon, Bruce Resendez and colleagues, with an educational osman from [employer]. Physical exam (Primary Care) Vital Signs: Last Vital Signs Pulse 75 03/10/23 14:21 BP 132/70 03/10/23 14:21 Pulse Ox 98 03/10/23 14:21 Oxygen Delivery Method Room Air 03/10/23 14:21 BMI result Body Mass Index 41.8 Tobacco/Smoking Status: Tobacco use Status Tobacco use date assessed 09/03/22 03/10/23 14:23 Patient Tobacco Use Status Former Tobacco user 03/10/23 14:23 Tobacco use type Cigarette 03/10/23 14:23 e-Cigarette/Vaping Use Never Used 03/10/23 14:23 PHQ-9: PHQ-9 Score PHQ-9: Total score 9 03/10/23 14:28 Depression Screening Interpretation: Positive Thrive Assessment: Date of Thrive Assessment Date Thrive assessed 07/24/22 03/10/23 14:23 Const General: alert; No acute distress Eyes Conjunctivae: conjunctivae normal Resp Auscultation: clear to auscultation bilaterally Cardio Rate: regular rate Rhythm: regular rhythm GI Inspection: Yes normal to inspection Extrem Other: Left Knee with some mild crepitations no tenderness on the anterior knee, slight tenderness on the medial posterior area General: Yes normal to inspection and No edema Assessment and Plan Assessment & Plan (1) Left knee pain: Code(s): M25.562 - Pain in left knee Plan: knee brace to use and NSAID to use prn- if persist will get ortho Coding Level of Care Code Est Pt Level 3 (43837) Diagnoses Left knee pain M25.562 Additional Codes PHQ-9 - 09552 - PHQ-9 Billing: ([id number])
== END 2023-03-10 14:39 | disposition home or self-care (01) ==
PROVIDERS: PCP Internal Medicine; Visit Provider Internal Medicine
DX: M25.562 Pain in left knee (principal)
CPT/HCPCS: 99213

== ENCOUNTER 2023-04-20 08:56 | Outpatient (AMB) | payer OTHER, SELFPAY ==
--- NOTE | 2023-04-20 09:25 | MHC.OFFVIS ---
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 Patient describes her pain as sharp in nature. Most of the pain is along the medial aspect of her knee. The patient states that she twisted her knee approximately 1 year ago. Since that time her symptoms have gotten worse in spite of continued non operative treatments. The patient states that her left knee will give out several times per day. She has fallen on several occasions over the last month. She has tried wearing a knee brace which gives her minimal relief. She has had injections in the past which gave her no relief. She has also tried Tylenol and anti-inflammatory medicines which gave her minimal relief. Allergies latex Allergy (Unknown, Verified 04/20/23 09:42) Hives penicillin V Allergy (Unknown, Verified 04/20/23 09:42) oral swelling PFSH Medical History Abnormal colonoscopy (~05/27/21) Cholelithiasis Endometrial polyp Finger strain Generalized anxiety disorder [facility]-up Hypercholesterolemia Hypothyroidism Insomnia Obesity (BMI 30-39.9) Osteoarthritis Retroperitoneal abscess Screening for osteoporosis Vitamin D deficiency Well woman exam Surgical History History of colectomy Inflammatory bowel disease History of ERCP Hx of colonoscopy Hx laparoscopic cholecystectomy Family History Mother Colon cancer Lung cancer Father Medical history unknown Paternal Aunt Breast cancer Daughter No problems noted. Daughter No problems noted. Son Substance use disorder Mental health disorder Son No problems noted. Son No problems noted. Son No problems noted. Son No problems noted. Social History Housing: House Alcohol intake: current Alcohol intake frequency: holidays/special occasions only Patient Tobacco Use Status: Former Tobacco user Quit Date: 1993 Tobacco use type: Cigarette Years Smoked: quit 1993 e-Cigarette/Vaping Use: Never Used Second Hand Smoke Exposure: No service: No Current occupational status: unemployed Sexual orientation: Straight/Heterosexual Gender identity: Female Cognitive needs: No Hearing needs: No Vision needs: Yes Female Reproductive History Menstrual Age of Menarche: 11 Physical Exam Vital Signs: BMI result Body Mass Index 41.8 Const Other: Well-nourished well-developed very friendly female awake alert and oriented x3 in no acute distress Extrem Other: Bilateral lower extremity examination shows good capillary refill, no skin lesions noted, normal sensation light touch Left knee examination shows a minimal effusion, minimal crepitus with range of motion, tenderness along her medial joint line, positive Neida's test, no instability Results Reviewed Results Reviewed: X-rays of the patient's left knee shows mild diffuse joint space narrowing, no acute bony abnormalities Assessment & Plan Assessment & Plan (1) Left knee pain: Code(s): M25.562 - Pain in left knee Plan: Ms. Sheriff presents with progressively worsening left knee pain and mechanical symptoms most likely due to a tear of her medial meniscus. Thus, I will send the patient for an MRI of her left knee for further evaluation. I will see her back once the MRI is completed to discuss the findings and treatment options. Feel free to call me at any time should questions regarding her orthopedic management arise. Thank very much for asking me to see this very friendly patient. I spent 22 minutes in reviewing the patient's records and imaging studies, seeing the patient and documenting in the medical record. Orders: Orders MR knee LT wo con Today M25.562 - Pain in left knee Coding Level of Care Code New Pt Level 2 (95909) Diagnoses Left knee pain M25.562
[2023-04-20 09:42] VITALS: BMI 41.8
== END 2023-04-20 10:09 | disposition home or self-care (01) ==
PROVIDERS: PCP Internal Medicine; Visit Provider Orthopaedic Surgery
DX: M25.562 Pain in left knee (principal)
CPT/HCPCS: 99202

== ENCOUNTER → 2023-04-20 08:56 | Outpatient (BNVA) | payer OTHER, SELFPAY | PROVIDERS: PCP Internal Medicine; Visit Provider Orthopaedic Surgery | DX: M25.562 Pain in left knee (principal) | CPT/HCPCS: 99202 ==

== ENCOUNTER 2023-05-07 08:58 | Outpatient (REF) | payer OTHER, SELFPAY ==
[2023-05-07 11:09] LABS: MANUAL DIFF FLAG NO
[2023-05-07 11:36] LABS: Alanine Aminotransferase 91 U/L (0-31); Albumin Level 4.3 g/dL (3.5-5.0); Alkaline Phosphatase 80 U/L (39-117); Anion Gap 11 (12-20); Aspartate Amino Transferase 79 U/L (5-31); Bilirubin Total 0.7 mg/dL (0.0-1.0); Blood Urea Nitrogen 15 mg/dL (9-16); Calcium 9.3 mg/dL (8.4-10.2); Carbon Dioxide 24 mmol/L (22-29); Chloride 110 mmol/L (96-108); Cholesterol 199 mg/dL (<200); Estimated Glomerular Filt Rate > 60; Glucose Random 105 mg/dL (60-115); HDL Cholesterol 38 mg/dL (>40); LDL Cholesterol Calculated 132 mg/dL (<100); Potassium 4.4 mmol/L (3.3-5.1); Sodium 141 mmol/L (135-145); Total Protein 7.7 g/dL (6.5-8.0); Triglycerides 148 mg/dL (<150)
[2023-05-07 11:41] LABS: Basophils Absolute Auto 0.1 X10*3/uL (0.0-0.2); Basophils Percent Auto 0.7 % (0-2); Eosinophils Absolute Auto 0.5 X10*3/uL (0.0-0.4); Eosinophils Percent Auto 5.4 % (0-4); Hematocrit 40.2 % (37.0-47.0); Hemoglobin 13.4 g/dl (12.0-16.0); Imm Gran Abs Auto 0.06 X10*3/uL (0.00-0.03); Imm Gran Pct Auto 0.7 % (0.0-0.4); Lymphocytes Absolute Auto 2.6 X10*3/uL (1.2-4.9); Lymphocytes Percent Auto 31.3 % (20-40); Mean Corpuscular HGB Conc 33.3 g/dl (31.0-35.0); Mean Corpuscular Volume 93.1 fL (80.0-98.0); Mean Platelet Volume 10.1 fL (9.4-12.3); Monocytes Absolute Auto 0.4 X10*3/uL (0.1-1.2); Monocytes Percent Auto 4.9 % (2-11); Neutrophils Absolute Auto 4.8 x10*3/uL (2.0-8.3); Platelet Count 292 X10*3/uL (160-400); Red Blood Count 4.32 X10*6/uL (4.20-5.50); Red Cell Distribution Width 12.4 % (11.0-16.0); White Blood Count 8.4 X10*3/uL (4.8-10.8)
[2023-05-07 12:01] LABS: Folate 8.6 ng/mL (> or = 4.0); Vitamin B12 269 pg/mL (200-900)
[2023-05-07 12:11] LABS: Thyroid Stimulating Hormone 1.39 uIU/mL (0.32-4.0); Vitamin D 25-OH Total 37.7 ng/mL (>30)
== END 2023-05-07 08:59 | disposition home or self-care (01) ==
LOC: HO.10HDL 08:58
PROVIDERS: Visit Provider Internal Medicine
DX: E03.9 Hypothyroidism, unspecified (principal); E78.00 Pure hypercholesterolemia, unspecified
CPT/HCPCS: 36415; 80053; 80061; 82306; 82607; 82746; 84439; 84443; 85025

== ENCOUNTER 2023-05-10 15:05 | Outpatient (AMB) | payer OTHER, SELFPAY ==
--- NOTE | 2023-05-10 15:17 | A.OFFPC_ITS ---
Vital Signs 05/10/23 15:19 Height 5 ft Weight 222 lb BMI 43.4 BP 116/70 Blood Pressure Location Lt brachial Position Sitting Pulse 70 Pulse Source Pulse Oximeter Pulse Oximetry (%) 98 Oxygen Delivery Method Room Air Intake Visit Reasons: F/Up ADHD, hypothyroid Mail Order Clerk Required: No Accompanied by: Self / Same As Patient Allergies latex Allergy (Unknown, Verified 05/10/23 15:23) Hives penicillin V Allergy (Unknown, Verified 05/10/23 15:23) oral swelling Tobacco use date assessed: 09/03/22 Dental Screening Dental Screen Date: 05/10/23 Did you have a dental visit in the last 12 months?: Yes Did you have a dental problem in the last 6 months where you did not have access to dental care?: No Was dental information given to patient?: Patient has dentist HPI F/Up ADHD, hypothyroid HPI Details 53-year-old obese female with hyperchole sterolemia impaired glucose tolerance hypothyroidism, inflammatory bowel disease generalized anxiety disorder coming in for follow-up. Patient had some left knee pain last February 2023. Patient is here for follow-up mammogram. Up-to-date. Colonoscopy March 2021. Pap smear is up-to-date. With this knee pain patient was referred to orthopedics concern about tear in the knee patient is advised to have on MRI. this is going to be done this year. [facility] Medical History Abnormal colonoscopy (~05/27/21) Cholelithiasis Endometrial polyp Finger strain Generalized anxiety disorder [facility] Hypercholesterolemia Hypothyroidism Insomnia Obesity (BMI 30-39.9) Osteoarthritis Retroperitoneal abscess Screening for osteoporosis Vitamin D deficiency Well woman exam Surgical History History of colectomy Inflammatory bowel disease History of ERCP Hx of colonoscopy Hx laparoscopic cholecystectomy Family History Mother Colon cancer Lung cancer Father Medical history unknown Paternal Aunt Breast cancer Daughter No problems noted. Daughter No problems noted. Son Substance use disorder Mental health disorder Son No problems noted. Son No problems noted. Son No problems noted. Son No problems noted. Social History Housing: House Alcohol intake: current Alcohol intake frequency: holidays/special occasions only Patient Tobacco Use Status: Former Tobacco user Quit Date: 1993 Tobacco use type: Cigarette Years Smoked: quit 1993 e-Cigarette/Vaping Use: Never Used Second Hand Smoke Exposure: No service: No Current occupational status: unemployed Sexual orientation: Straight/Heterosexual Gender identity: Female Cognitive needs: No Hearing needs: No Vision needs: Yes Female Reproductive History Menstrual Age of Menarche: 11 Questionnaire Thrive Questionnaire Date Thrive assessed: 07/24/22 MIMI-7 AMB Questionnaire MIMI-7 Date MIMI - 7 assessed: 07/24/22 Source: Developed by Drs. Walter Luis, Cathy Brannon, Bruce Resendez and colleagues, with an educational osman from [employer]. Physical exam (Primary Care) Vital Signs: Last Vital Signs Pulse 70 05/10/23 15:19 BP 116/70 05/10/23 15:19 Pulse Ox 98 05/10/23 15:19 Oxygen Delivery Method Room Air 05/10/23 15:19 BMI result Body Mass Index 43.4 Tobacco/Smoking Status: Tobacco use Status Tobacco use date assessed 09/03/22 05/10/23 15:18 Patient Tobacco Use Status Former Tobacco user 05/10/23 15:18 Tobacco use type Cigarette 05/10/23 15:18 e-Cigarette/Vaping Use Never Used 05/10/23 15:18 Thrive Assessment: Date of Thrive Assessment Date Thrive assessed 07/24/22 05/10/23 15:18 Const General: alert; No acute distress Eyes Conjunctivae: conjunctivae normal Resp Auscultation: clear to auscultation bilaterally Cardio Rate: regular rate Rhythm: regular rhythm GI Inspection: Yes normal to inspection Extrem General: Yes normal to inspection and No edema Assessment and Plan Assessment & Plan (1) Obesity (BMI 30-39.9): Code(s): E66.9 - Obesity, unspecified Plan: Diet and exercise (2) Hypercholesterolemia: Code(s): E78.00 - Pure hypercholesterolemia, unspecified Plan: Avoid fried foods, chicken skin, eggs, butter margarine, pastries and meat. Be it pork or beef they have a lot of cholesterol LDL goal of less than 130 and triglyceride of less than 150 (3) Impaired fasting blood sugar: Code(s): R73.01 - Impaired fasting glucose Plan: Decrease the amount of carbohydrate intake, pasta, bread, rice and potatoes are all sugar and that is aside from all the sweet stuff, remember that fruits are good but they are Sweet also. 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 Exploratory laparotomy alter low anterior resection with short Shantanu's stump, mobilization of splenic flexure omental flap resection and closure of ileostomy Code(s): K52.9 - Noninfective gastroenteritis and colitis, unspecified (6) Hypothyroid: Code(s): E03.9 - Hypothyroidism, unspecified Plan: Continue with thyroid Medicaid (7) Left knee pain: Code(s): M25.562 - Pain in left knee Plan: Patient has seen ortho and planned MRI (8) Vitamin B 12 deficiency: Code(s): E53.8 - Deficiency of other specified B group vitamins Coding Level of Care Code Est Pt Level 4 (59454) Diagnoses Obesity (BMI 30-39.9) E66.9 Hypercholesterolemia E78.00 Impaired fasting blood sugar R73.01 Moderately severe depression F32.2 Inflammatory bowel disease K52.9 Hypothyroid E03.9 Left knee pain M25.562 Vitamin B 12 deficiency E53.8
[2023-05-10 15:19] VITALS: BP 116/70; PULSE 70; O2SAT 98; BMI 43.4
== END 2023-05-10 16:16 | disposition home or self-care (01) ==
PROVIDERS: PCP Internal Medicine; Visit Provider Internal Medicine
DX: R73.01 Impaired fasting glucose (principal); F32.2 Major depressive disorder, single episode, severe without psychotic features; E66.9 Obesity, unspecified; Z68.41 Body mass index [BMI] 40.0-44.9, adult; E78.00 Pure hypercholesterolemia, unspecified; K52.9 Noninfective gastroenteritis and colitis, unspecified; E03.9 Hypothyroidism, unspecified; M25.562 Pain in left knee; E53.8 Deficiency of other specified B group vitamins
CPT/HCPCS: 99214

== ENCOUNTER 2023-05-26 18:50 | Outpatient (REF) | payer OTHER, SELFPAY ==
--- NOTE | ~2023-05-26 | MR_ITS ---
EXAMINATION: MR KNEE WITHOUT CONTRAST, LEFT CLINICAL INFORMATION: Left knee pain and swelling following a fall. COMPARISON: Left knee radiographs dated 03/09/2023. TECHNIQUE: MRI of the knee without contrast was performed using routine sequences on a high-field scanner. FINDINGS: MENISCI: Medial Meniscus: Complete radial tear of the posterior horn/root junction measuring up to 0.4 cm in ML dimension and located approximately 0.4 cm from the posterior root insertion. Medial extrusion of the meniscal body with mild adjacent soft tissue edema. Lateral Meniscus: Intact. LIGAMENTS: Cruciate: Intact. Collateral: Intact. EXTENSOR MECHANISM: Intact. ARTICULAR CARTILAGE/BONE: Patellofemoral Compartment: Intact articular cartilage. Medial Compartment: Minimal cortical flattening with underlying marrow edema at the medial femoral condyle measuring up to 0.6 cm in ML dimension, consistent with a minimally depressed subchondral fracture. Edema within the adjacent medial tibial plateau, consistent with an osseous contusion. Lateral Compartment: Intact articular cartilage. JOINT FLUID AND BURSAE: [id number] joint effusion. MR/MR knee LT wo con IMPRESSION: 1. Complete radial tear of the medial meniscus posterior horn/root junction measuring 0.4 cm in ML dimension and located approximately 0.4 cm from the posterior root insertion. Medial extrusion of the meniscal body with mild adjacent soft tissue edema. 2. Minimally depressed subchondral fracture at the medial femoral condyle measuring 0.6 cm in ML dimension. Osseous contusion within the adjacent medial tibial plateau. 3. [id number] joint effusion.
== END 2023-05-26 18:51 | disposition home or self-care (01) ==
LOC: HO.MRI 18:50
PROVIDERS: PCP Internal Medicine; Visit Provider Orthopaedic Surgery
DX: M25.562 Pain in left knee (principal)
CPT/HCPCS: 73721

== ENCOUNTER 2023-06-09 08:19 | Outpatient (AMB) | payer OTHER, SELFPAY ==
[2023-06-09 08:22] VITALS: BMI 43.4
--- NOTE | 2023-06-09 08:22 | A.OFFVIS_ITS ---
Intake Vital Signs 06/09/23 08:22 Height 5 ft Weight 222 lb BMI 43.4 Intake Visit Reasons: ov- MRI Knee LT review Intake Note: Faby is a 53 year old female who presents today for a MRI review of her left knee review. She describes her knee discomfort as aching in nature. She has taken Tylenol and anti-inflammatory medicines which gave her only mild relief. She states that at times her left knee will give out. Allergies latex Allergy (Unknown, Verified 06/09/23 08:23) Hives penicillin V Allergy (Unknown, Verified 06/09/23 08:23) oral swelling Medication List - Last Reconciled 06/09/23 by Roshan Watson MD ascorbate calcium (vitamin C) 500 mg PO DAILY cholecalciferol (vitamin D3) 25 mcg PO DAILY cyanocobalamin (vitamin B-12) 1,000 mcg PO DAILY levothyroxine 137 mcg orally ; 90 days meloxicam 15 mg PO DAILY miscellaneous medical supply 1 ea miscellaneous DAILY sertraline 150 mg (1.5 x 100 mg) PO DAILY 90 days Shower Chair As directed [facility] Medical History Abnormal colonoscopy (~05/27/21) Cholelithiasis Endometrial polyp Finger strain Generalized anxiety disorder [facility] Hypercholesterolemia Hypothyroidism Insomnia Obesity (BMI 30-39.9) Osteoarthritis Retroperitoneal abscess Screening for osteoporosis Vitamin D deficiency Well woman exam Surgical History History of colectomy Inflammatory bowel disease History of ERCP Hx of colonoscopy Hx laparoscopic cholecystectomy Family History Mother Colon cancer Lung cancer Father Medical history unknown Paternal Aunt Breast cancer Daughter No problems noted. Daughter No problems noted. Son Substance use disorder Mental health disorder Son No problems noted. Son No problems noted. Son No problems noted. Son No problems noted. Social History Housing: House Alcohol intake: current Alcohol intake frequency: holidays/special occasions only Comment: ambulating ad luana in [place]. Patient Tobacco Use Status: Former Tobacco user Quit Date: 1993 Tobacco use type: Cigarette Years Smoked: quit 1993 e-Cigarette/Vaping Use: Never Used Second Hand Smoke Exposure: No service: No Current occupational status: unemployed Sexual orientation: Straight/Heterosexual Gender identity: Female Cognitive needs: No Hearing needs: No Vision needs: Yes Female Reproductive History Menstrual Age of Menarche: 11 Physical Exam Vital Signs: BMI result Body Mass Index 43.4 Const Other: Well-nourished well-developed very friendly female awake alert and oriented x3 in no acute distress Extrem Other: Bilateral lower extremity examination shows good capillary refill, no skin lesions noted, normal sensation light touch Left knee examination shows a minimal effusion, minimal crepitus with range of motion, tenderness along her medial joint line, positive Neida's test, no instability Results Reviewed Results Reviewed: MRI of the patient's left knee shows mild diffuse degenerative changes, tearing of the medial meniscus, possible tearing of the lateral meniscus Assessment & Plan Assessment & Plan (1) Left knee pain: Code(s): M25.562 - Pain in left knee Plan Ms. Sheriff presents with left knee pain and mechanical symptoms due to a medial meniscus tear and possible lateral meniscus tearing. I had a lengthy discussion with the patient regarding the treatment options. At this point the patient's symptoms are tolerable to her. Activity modifications were discussed at length with the patient. She wishes to hold off on surgery for as long as possible. I agree with this plan. She will follow up with me on an as-needed basis should her symptoms worsen in any way. Feel free to call me at any time should questions regarding her orthopedic management arise. I spent 22 minutes in reviewing the patient's records and imaging studies, seeing the patient and documenting in the medical record. Coding Level of Care Code Est Pt Level 2 (66722) Diagnoses Left knee pain M25.562
== END 2023-06-09 08:51 | disposition home or self-care (01) ==
PROVIDERS: PCP Internal Medicine; Visit Provider Orthopaedic Surgery
DX: M25.562 Pain in left knee (principal)
CPT/HCPCS: 99212

== ENCOUNTER → 2023-06-09 08:19 | Outpatient (BNVA) | payer OTHER, SELFPAY | PROVIDERS: PCP Internal Medicine; Visit Provider Orthopaedic Surgery | DX: M25.562 Pain in left knee (principal) | CPT/HCPCS: 99212 ==

== ENCOUNTER 2023-07-14 08:46 | Outpatient (REF) | payer OTHER, SELFPAY ==
--- NOTE | ~2023-07-14 | XR_ITS ---
EXAMINATION: XR SINUSES CLINICAL INFORMATION: Nasal congestion; right frontal sinus pressure. COMPARISON: None available. TECHNIQUE: Mata, Ackerman, lateral, and SMV FINDINGS: The right frontal sinus is aplastic. The remaining paranasal sinuses are well aerated and clear. No mucosal thickening or air-fluid level is seen. There is no fracture or dislocation. The nasal septum is midline. XR/XR sinus <3V IMPRESSION: Unremarkable examination.
== END 2023-07-14 08:47 | disposition home or self-care (01) ==
LOC: HO.XRAY 08:46
PROVIDERS: PCP Internal Medicine; Visit Provider Internal Medicine
DX: R09.81 Nasal congestion (principal)
CPT/HCPCS: 70210

== ENCOUNTER 2023-08-25 07:46 | Outpatient (REF) | payer OTHER, SELFPAY ==
[2023-08-25 10:53] LABS: MANUAL DIFF FLAG NO
[2023-08-25 11:00] LABS: Basophils Absolute Auto 0.1 X10*3/uL (0.0-0.2); Basophils Percent Auto 0.7 % (0-2); Eosinophils Absolute Auto 0.6 X10*3/uL (0.0-0.4); Eosinophils Percent Auto 5.8 % (0-4); Hematocrit 42.1 % (37.0-47.0); Hemoglobin 14.1 g/dl (12.0-16.0); Imm Gran Abs Auto 0.04 X10*3/uL (0.00-0.03); Imm Gran Pct Auto 0.4 % (0.0-0.4); Lymphocytes Absolute Auto 3.4 X10*3/uL (1.2-4.9); Lymphocytes Percent Auto 33.5 % (20-40); Mean Corpuscular HGB Conc 33.5 g/dl (31.0-35.0); Mean Corpuscular Hemoglobin 30.7 pg (27.0-33.0); Mean Corpuscular Volume 91.7 fL (80.0-98.0); Mean Platelet Volume 9.9 fL (9.4-12.3); Monocytes Absolute Auto 0.6 X10*3/uL (0.1-1.2); Neutrophils Absolute Auto 5.4 x10*3/uL (2.0-8.3); Neutrophils Percent Auto 53.6 % (45-73); Platelet Count 289 X10*3/uL (160-400); Red Blood Count 4.59 X10*6/uL (4.20-5.50); White Blood Count 10.1 X10*3/uL (4.8-10.8)
[2023-08-25 11:33] LABS: Alanine Aminotransferase 54 U/L (0-31); Albumin Level 4.2 g/dL (3.5-5.0); Alkaline Phosphatase 70 U/L (39-117); Anion Gap 12 (12-20); Aspartate Amino Transferase 49 U/L (5-31); Bilirubin Total 0.5 mg/dL (0.0-1.0); Blood Urea Nitrogen 15 mg/dL (9-16); Calcium 9.6 mg/dL (8.4-10.2); Carbon Dioxide 25 mmol/L (22-29); Chloride 109 mmol/L (96-108); Cholesterol 195 mg/dL (<200); Estimated Glomerular Filt Rate > 60; Glucose Random 105 mg/dL (60-115); HDL Cholesterol 39 mg/dL (>40); LDL Cholesterol Calculated 117 mg/dL (<100); Sodium 142 mmol/L (135-145); Total Protein 7.5 g/dL (6.5-8.0); Triglycerides 197 mg/dL (<150)
[2023-08-25 11:40] LABS: Free T4 (Free Thyroxine) 0.96 ng/dL (0.71-1.85); Thyroid Stimulating Hormone 0.19 uIU/mL (0.32-4.0); Vitamin D 25-OH Total 54.5 ng/mL (>30)
[2023-08-25 15:10] LABS: Vitamin B12 607 pg/mL (200-900)
== END 2023-08-25 07:47 | disposition home or self-care (01) ==
LOC: HO.10HDL 07:46
PROVIDERS: Visit Provider Internal Medicine
DX: E78.00 Pure hypercholesterolemia, unspecified (principal)
CPT/HCPCS: 36415; 80053; 80061; 82306; 82607; 82746; 84439; 84443; 85025

== ENCOUNTER 2023-09-03 09:21 | Outpatient (REF) | payer OTHER, SELFPAY | END 2023-09-03 09:22 | disposition home or self-care (01) | LOC: HO.MAMMO 09:21 | PROVIDERS: PCP Internal Medicine; Visit Provider Internal Medicine | DX: Z12.31 Encounter for screening mammogram for malignant neoplasm of breast (principal) | CPT/HCPCS: 77063; 77067 ==

== ENCOUNTER → 2023-09-03 09:30 | Outpatient (BNV) | payer OTHER, SELFPAY | PROVIDERS: PCP Internal Medicine; Visit Provider Radiology Diagnostic Radiology | DX: Z12.31 Encounter for screening mammogram for malignant neoplasm of breast (principal) | CPT/HCPCS: 77063; 77067 ==

== ENCOUNTER 2023-09-09 10:05 | Outpatient (AMB) | payer OTHER, SELFPAY ==
--- NOTE | 2023-09-09 10:10 | MHC.PC.OV ---
Vital Signs 09/09/23 10:11 Height 5 ft Weight 204 lb BMI 39.8 BP 124/68 Blood Pressure Location Lt brachial Position Sitting Pulse 78 Pulse Source Pulse Oximeter Pulse Oximetry (%) 98 Oxygen Delivery Method Room Air Intake Visit Reasons: pe Allergies latex Allergy (Unknown, Verified 09/09/23 10:13) Hives penicillin V Allergy (Unknown, Verified 09/09/23 10:13) oral swelling Medication List - Last Reconciled 09/09/23 by Karma Reyes MD ascorbate calcium (vitamin C) 500 mg PO DAILY cholecalciferol (vitamin D3) 25 mcg PO DAILY cyanocobalamin (vitamin B-12) 1,000 mcg PO DAILY levothyroxine 125 mcg orally ; 90 days meloxicam 15 mg PO DAILY miscellaneous medical supply 1 ea miscellaneous DAILY omega 3-oef-qzq-fish oil 60-90-500 mg (Fish Oil) 1 cap PO DAILY sertraline 150 mg (1.5 x 100 mg) PO DAILY 90 days Shower Chair As directed Tobacco use date assessed: 09/09/23 Dental Screening Dental Screen Date: 09/09/23 Did you have a dental visit in the last 12 months?: Yes Did you have a dental problem in the last 6 months where you did not have access to dental care?: No Was dental information given to patient?: Patient has dentist HPI pe HPI Details 53-year-old obese female with hypercholesterolemia impaired glucose tolerance severe depression inflammatory bowel disease hypothyroidism coming in for physical exam last seen in April 2023. Patient's mammogram is up-to-date Pap smear is up-to-date. Review of the notes Maurice was in the orthopedic MRI of the knee mild diffuse degenerative changes tearing of the medial meniscus possible tearing of the lateral meniscus. has been smoking weed. on ostomy does not wants to have this reverse [facility], [facility] Medical History (Updated 09/09/23 @ 10:57 by Karma Reyes MD) Sprain of left knee Well woman exam Screening for osteoporosis Heartburn Hospital discharge follow-up Abnormal colonoscopy (~05/27/21) Retroperitoneal abscess Generalized anxiety disorder Finger strain Osteoarthritis Vitamin D deficiency Hypercholesterolemia Obesity (BMI 30-39.9) Endometrial polyp Cholelithiasis Hypothyroidism Insomnia Surgical History History of colectomy Inflammatory bowel disease History of ERCP Hx of colonoscopy Hx laparoscopic cholecystectomy Family History Mother Colon cancer Lung cancer Father Medical history unknown Paternal Aunt Breast cancer Daughter No problems noted. Daughter No problems noted. Son Substance use disorder Mental health disorder Son No problems noted. Son No problems noted. Son No problems noted. Son No problems noted. Social History (Updated 09/09/23 @ 11:06 by Karma Reyes MD) Housing: House Alcohol intake: current Alcohol intake frequency: holidays/special occasions only Comment: ambulating ad luana in [place]. stopped alcohol 06/2023 Patient Tobacco Use Status: Former Tobacco user Quit Date: 1993 Tobacco use type: Cigarette Years Smoked: quit 1993 smokes weed e-Cigarette/Vaping Use: Never Used Second Hand Smoke Exposure: No service: No Current occupational status: unemployed Sexual orientation: Straight/Heterosexual Gender identity: Female Cognitive needs: No Hearing needs: No Vision needs: Yes Female Reproductive History Menstrual Age of Menarche: 11 Questionnaire PHQ-9 Over the last 2 weeks, how often have you been bothered by any of the following problems? 1. Little interest or pleasure in doing things: several days 2. Feeling down, depressed, or hopeless: several days 3. Trouble falling or staying asleep, or sleeping too much: several days 4. Feeling tired or having little energy: several days 5. Poor appetite or overeating: several days 6. Feeling bad about yourself - or that you are a failure or have let yourself or your family down: several days 7. Trouble concentrating on things, such as reading the newspaper or watching television: several days 8. Moving or speaking so slowly that other people could have noticed. Or the opposite - being so fidgety or restless that you have been moving around a lot more than usual: several days 9. Thoughts that you would be better off or of hurting yourself in some way: several days Total score: 9 Depression Screening Interpretation: Positive Depression Screening Done: Yes Source: Developed by Drs. Walter Luis, Cathy Brannon, Bruce Resendez and colleagues, with an educational osman from [employer]. Thrive Questionnaire Date Thrive assessed: 09/09/23 I am a: Patient What is your living situation today?: I have a steady place to live Within the past 12 months, did the food you bought not last and you didn't have the money to get more?: Never true Within the past 12 months, did you worry whether your food would run out before you got money to buy more?: Never true Do you have trouble paying for medicines?: No Do you have trouble getting transportation to medical appointments?: No Do you have trouble paying your heating and electricity bill?: No Do you have trouble taking care of your child, family member or friend?: No Do you have trouble with day-to-day activities such as bathing, preparing meals, shopping, managing finances, etc.?: No Are you currently unemployed and looking for a job?: No Are you interested in more education?: No Currently or been in a relationship where the following occur: no concerns reported THRIVE Score: 0 AUDIT C Alcohol Use Questionnaire (AUDIT-C) 1. How often do you have a drink containing alcohol?: Never 2. How many drinks containing alcohol do you have on a typical day when you are drinking?: 1 or 2 3. How often do you have six or more drinks on one occasion?: Never Total Score: 0 MIMI-7 AMB Questionnaire MIMI-7 Date MIMI - 7 assessed: 09/09/23 Feeling nervous, anxious, or on edge: 0 = Not at all Not being able to stop or control worryin = Not at all Worrying too much about different things: 0 = Not at all Trouble relaxin = Not at all Being so restless that it is hard to sit still: 0 = Not at all Becoming easily annoyed or irritable: 0 = Not at all Feeling afraid as if something awful might happen: 0 = Not at all Total MIMI-7 score (0-4 normal; 5-9 mild; 10-14 moderate; 15-21 severe): 0 Source: Developed by Drs. Walter Luis, Cathy Brannon, Bruce Resendez and colleagues, with an educational osman from [employer]. Review of Systems Const Denies poor appetite and Denies weakness Eyes Denies no additional complaints ENT Reports Normal hearing present, Denies dizziness, Denies nasal congestion, Denies tinnitus and Denies sore throat Card Denies chest pain, Denies syncope, Denies rapid heart rate and Denies dyspnea Resp Denies cough and Denies dyspnea GI Denies change in stool character, Reports constipation, Denies diarrhea, Denies nausea and Denies vomiting Denies urinary frequency, Denies difficulty voiding and Denies dysuria Neuro Reports Normal hearing present, Denies confusion, Denies dizziness, Denies syncope and Denies weakness Psych Denies confusion Physical exam (Primary Care) Vital Signs: Last Vital Signs Pulse 78 09/09/23 10:11 BP 124/68 09/09/23 10:11 Pulse Ox 98 09/09/23 10:11 Oxygen Delivery Method Room Air 09/09/23 10:11 BMI result Body Mass Index 39.8 Tobacco/Smoking Status: Tobacco use Status Tobacco use date assessed 09/09/23 09/09/23 10:17 Patient Tobacco Use Status Former Tobacco user 09/09/23 10:17 Tobacco use type Cigarette 09/09/23 10:17 e-Cigarette/Vaping Use Never Used 09/09/23 10:17 PHQ-9: PHQ-9 Score PHQ-9: Total score 9 09/09/23 10:17 Depression Screening Interpretation: Positive Thrive Assessment: Date of Thrive Assessment Date Thrive assessed 09/09/23 09/09/23 10:17 Currently or been in a relationship where the following occur: no concerns reported Const General: No confusion Orientation/consciousness: No confusion HENMT Head: Yes normocephalic Ears: external ears normal and TM's normal bilaterally Face and sinus: Yes normal facial exam Mouth: moist mucous membranes Throat: Yes tonsils normal Eyes Conjunctivae: conjunctivae normal Pupils: Equal, round and reactive pupils present and Pupil accommodation reflex normal Direct Ophthalmoscopy: normal light reflex Neck Neck: No lymphadenopathy Thyroid: Thyroid normal Chest Chest palpation & inspection: normal inspection of the chest Resp Effort & Inspection: normal respiratory effort and no audible wheezes Auscultation: clear to auscultation bilaterally, no crackles, no wheezes and lung sounds not diminished Cardio Rate: regular rate Rhythm: regular rhythm Peripheral pulses: radial pulses present and dorsalis pedis present GI Other: LLQ colostomy bag Palpation (GI): no masses Auscultation: normal bowel sounds and normoactive bowel sounds Rectal Exam - Female: deferred Skin General skin exam: no rashes or lesions noted Rashes: no rashes Neuro General: No confusion Cranial nerves: Yes Equal, round and reactive pupils present and Yes Normal hearing present Cognition (Neuro): normal cognition Gait exam (Neuro): Normal gait present Motor exam (neuro): 5/5 motor strength present throughout Deep tendon reflexes (DTR's): Right brachioradialis reflex intensity grade: 2+, Left brachioradialis reflex intensity grade: 2+, Right patellar reflex intensity grade: 2+ and Left patellar reflex intensity grade: 2+ Extrem General: No edema Assessment and Plan Assessment & Plan (1) Annual physical exam: Code(s): Z00.00 - Encounter for general adult medical examination without abnormal findings (2) Obesity (BMI 30-39.9): Code(s): E66.9 - Obesity, unspecified Plan: Diet and exercise to continue (3) Hypercholesterolemia: Code(s): E78.00 - Pure hypercholesterolemia, unspecified Plan: Avoid fried foods, chicken skin, eggs, butter margarine, pastries and meat. Be it pork or beef they have a lot of cholesterol LDL goal of less than 130 and triglyceride of less than 150. (4) Impaired fasting blood sugar: Code(s): R73.01 - Impaired fasting glucose Plan: Decrease the amount of carbohydrate intake, pasta, bread, rice and potatoes are all sugar and that is aside from all the sweet stuff, remember that fruits are good but they are Sweet also. 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 Exploratory laparotomy alter low anterior resection with short Shantanu's stump, mobilization of splenic flexure omental flap resection and closure of ileostomy Code(s): K52.9 - Noninfective gastroenteritis and colitis, unspecified Plan: Continue to follow-up with Gastroenterology (7) Left knee pain: Comment: MRI did show tear in the lateral medial meniscus Code(s): M25.562 - Pain in left knee Plan: MRI did show tear, presently on conservative management (8) Fatty liver: Code(s): K76.0 - Fatty (change of) liver, not elsewhere classified Plan: Low-fat diet and exercise Coding Level of Care Code Est Pt Prev Care 40-64y(33048) Diagnoses Annual physical exam Z00.00 Obesity (BMI 30-39.9) E66.9 Hypercholesterolemia E78.00 Impaired fasting blood sugar R73.01 Moderately severe depression F32.2 Inflammatory bowel disease K52.9 Left knee pain M25.562 Fatty liver K76.0 Additional Codes PHQ-9 - 19146 - PHQ-9 Billing: ([id number])
[2023-09-09 10:11] VITALS: BP 124/68; PULSE 78; O2SAT 98; BMI 39.8
== END 2023-09-09 11:28 | disposition home or self-care (01) ==
PROVIDERS: Visit Provider Internal Medicine
DX: Z00.00 Encounter for general adult medical examination without abnormal findings (principal); E78.00 Pure hypercholesterolemia, unspecified; R73.01 Impaired fasting glucose; F32.2 Major depressive disorder, single episode, severe without psychotic features; K52.9 Noninfective gastroenteritis and colitis, unspecified; M25.562 Pain in left knee; K76.0 Fatty (change of) liver, not elsewhere classified
CPT/HCPCS: 99396

== ENCOUNTER 2023-10-05 07:33 | Outpatient (AMB) | payer OTHER, SELFPAY ==
[2023-10-05 07:36] VITALS: BP 124/76; BMI 40.2
--- NOTE | 2023-10-05 07:36 | A.OFFVIS_ITS ---
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 No complaints. Last Pap/HPV was negative in 09/17 Last Mammogram was BI-RADS 1 in 09/18 Last Colonoscopy was done in 04/17, the recommendation was to repeat in 5 years [facility] Medical History Sprain of left knee Well woman exam Screening for osteoporosis Heartburn Hospital discharge follow-up Abnormal colonoscopy (~05/27/21) Retroperitoneal abscess Generalized anxiety disorder Finger strain Osteoarthritis Vitamin D deficiency Hypercholesterolemia Obesity (BMI 30-39.9) Endometrial polyp Cholelithiasis Hypothyroidism Insomnia Surgical History History of colectomy Inflammatory bowel disease History of ERCP Hx of colonoscopy Hx laparoscopic cholecystectomy Family History Mother Colon cancer Lung cancer Father Medical history unknown Paternal Aunt Breast cancer Daughter No problems noted. Daughter No problems noted. Son Substance use disorder Mental health disorder Son No problems noted. Son No problems noted. Son No problems noted. Son No problems noted. Social History Housing: House Alcohol intake: current Alcohol intake frequency: holidays/special occasions only Comment: ambulating ad luana in [place]. stopped alcohol 06/2023 Patient Tobacco Use Status: Former Tobacco user Quit Date: 1993 Tobacco use type: Cigarette Years Smoked: quit 1993 smokes weed e-Cigarette/Vaping Use: Never Used Second Hand Smoke Exposure: No Substance Use Type: Marijuana service: No Current occupational status: unemployed Sexual orientation: Straight/Heterosexual Gender identity: Female Cognitive needs: No Hearing needs: No Vision needs: Yes Female Reproductive History Menstrual Age of Menarche: 11 Menopause type: natural Total pregnancies: 7 Full term: 7 Number of Living Children: 6 Date of last pap smear: 09/07/22 (neg pap and hpv) Date of Mammogram: 09/03/23 Review of Systems Const All systems reviewed & are unremarkable except as noted in HPI and below Card Reports as per HPI Resp Reports as per HPI GI Reports as per HPI and Reports no additional complaints Reports as per HPI Physical Exam Vital Signs: Last Vital Signs BP 124/76 10/05/23 07:36 BMI result Body Mass Index 40.2 Const General: cooperative, healthy appearing and comfortable Chest Chest palpation & inspection: normal inspection of the chest and normal palpation of entire chest wall Breast/axilla inspection: normal inspection of the breasts and normal inspection of the axillae Breast/axilla palpation: normal palpation of the breasts, normal palpation of the axillae and no axillary lymphadenopathy Resp Effort & Inspection: normal respiratory effort Auscultation: clear to auscultation bilaterally Percussion: percussion normal Cardio Palpation: normal PMI Rate: regular rate Rhythm: regular rhythm Heart sounds: no murmurs and no rubs Peripheral pulses: Peripheral pulses 2+ throughout GI Inspection: Yes normal to inspection Palpation (GI): Soft to palpation, nontender, no guarding, not rigid and No hepatosplenomegaly present Percussion: Yes normal to percussion Auscultation: normal bowel sounds Rectal Exam - Female: deferred General: Yes bladder normal to palpation External Female Exam: No lesion Speculum Exam - Vagina: normal appearance of the vagina, normal palpation, normal vaginal discharge and not erythematous Speculum Exam - Cervix: normal appearance of the cervix and normal palpation Bimanual exam- vagina & uterus: normal bimanual exam, normal palpation, uterine size normal, bladder normal to palpation, consistency normal and normal palpation Bimanual Exam- Adnexa, other: normal adnexae, no masses and no tenderness Assessment & Plan Assessment & Plan (1) Well woman exam: Code(s): Z01.419 - Encounter for gynecological examination (general) (routine) without abnormal findings Plan: Co testing not indicated this year. Counseled the patient about the recommended dietary allowance of 1200 mg of Calcium & 600 IU of vitamin D. Instructions given to patient to schedule her next screening in 09/19. The patient was instructed to perform monthly self-breast exams and schedule annual exam in a year. All questions answered and the patient verbalized understanding. Coding Level of Care Code Est Pt Prev Care 40-64y(36085) Diagnoses Well woman exam Z01.419
== END 2023-10-05 08:03 | disposition home or self-care (01) ==
PROVIDERS: Visit Provider Obstetrics & Gynecology
DX: Z01.419 Encounter for gynecological examination (general) (routine) without abnormal findings (principal)
CPT/HCPCS: 99396

== ENCOUNTER → 2023-10-05 07:33 | Outpatient (BNVA) | payer OTHER, SELFPAY | PROVIDERS: Visit Provider Obstetrics & Gynecology | DX: Z01.419 Encounter for gynecological examination (general) (routine) without abnormal findings (principal) | CPT/HCPCS: 99396 ==

== ENCOUNTER 2024-03-13 08:54 | Outpatient (AMB) | payer OTHER, SELFPAY ==
--- NOTE | 2024-03-13 09:16 | MHC.PC.OV ---
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 Last seen in August 2023. Patient is up-to-date with mammogram. Last colonoscopy was 04/16/2021. [facility] Medical History Sprain of left knee Well woman exam Screening for osteoporosis Heartburn Hospital discharge follow-up Abnormal colonoscopy (~05/27/21) Retroperitoneal abscess Generalized anxiety disorder Finger strain Osteoarthritis Vitamin D deficiency Hypercholesterolemia Obesity (BMI 30-39.9) Endometrial polyp Cholelithiasis Hypothyroidism Insomnia Surgical History History of colectomy Inflammatory bowel disease History of ERCP Hx of colonoscopy Hx laparoscopic cholecystectomy Family History Mother Colon cancer Lung cancer Father Medical history unknown Paternal Aunt Breast cancer Daughter No problems noted. Daughter No problems noted. Son Substance use disorder Mental health disorder Son No problems noted. Son No problems noted. Son No problems noted. Son No problems noted. Social History Housing: House Alcohol intake: current Alcohol intake frequency: holidays/special occasions only Comment: ambulating ad luana in [place]. stopped alcohol 06/2023 Patient Tobacco Use Status: Former Tobacco user Tobacco use type: Cigarette Years Smoked: quit 1993 smokes weed e-Cigarette/Vaping Use: Never Used Second Hand Smoke Exposure: No Substance Use Type: Marijuana service: No Current occupational status: unemployed Sexual orientation: Straight/Heterosexual Gender identity: Female Cognitive needs: No Hearing needs: No Vision needs: Yes Female Reproductive History Menstrual Age of Menarche: 11 Questionnaire Thrive Questionnaire Date Thrive assessed: 09/09/23 Are you currently unemployed and looking for a job?: No MIMI-7 AMB Questionnaire MIMI-7 Date MIMI - 7 assessed: 09/09/23 Source: Developed by Drs. Walter Luis, Cathy Brannon, Bruce Resendez and colleagues, with an educational osman from [employer]. Physical exam (Primary Care) Vital Signs: Last Vital Signs Pulse 86 03/13/24 09:18 BP 110/70 03/13/24 09:18 Pulse Ox 98 03/13/24 09:18 BMI result Body Mass Index 37.4 Tobacco/Smoking Status: Tobacco use Status Tobacco use date assessed 09/09/23 03/13/24 09:17 Patient Tobacco Use Status Former Tobacco user 03/13/24 09:17 Tobacco use type Cigarette 03/13/24 09:17 e-Cigarette/Vaping Use Never Used 03/13/24 09:17 Thrive Assessment: Date of Thrive Assessment Date Thrive assessed 09/09/23 03/13/24 09:17 Const General: alert; No acute distress Eyes Conjunctivae: conjunctivae normal Resp Auscultation: clear to auscultation bilaterally Cardio Rate: regular rate Rhythm: regular rhythm GI Inspection: Yes normal to inspection Extrem General: Yes normal to inspection and No edema Assessment and Plan Assessment & Plan (1) Inflammatory bowel disease: Comment: May 2021 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 Be it pork or beef they have a lot of cholesterol LDL goal of less than 130 and triglyceride of less than 150. (4) Moderately severe depression: Comment: Earnestine [facility]on counselling once a week 11/2021 Code(s): F32.2 - Major depressive disorder, single episode, severe without psychotic features Plan: Continue with counseling and therapy (5) Hypothyroid: Code(s): E03.9 - Hypothyroidism, unspecified Plan: Patient will need retesting of blood work (6) Tendon cysts: Comment: L foot Code(s): M67.80 - Other specified disorders of synovium and tendon, unspecified site Plan: will refer to podiatry Orders: Orders Hemoglobin A1c Today R73.01 - Impaired fasting glucose Comprehensive Met. Panel Today R73.01 - Impaired fasting glucose Complete Blood Count Auto Diff Today R73.01 - Impaired fasting glucose Referrals Podiatry Referral M67.80 - Other specified disorders of synovium and tendon, unspecified site Medications: Refilled levothyroxine 125 mcg orally ; 90 days 90 tabs 0RF E03.9 - Hypothyroidism, unspecified levothyroxine 125 mcg orally ; 90 tabs 0RF 90 days E03.9 - Hypothyroidism, unspecified Coding Level of Care Code Est Pt Level 4 (93056) Diagnoses Inflammatory bowel disease K52.9 Obesity (BMI 30-39.9) E66.9 Hypercholesterolemia E78.00 Moderately severe depression F32.2 Hypothyroid E03.9 Tendon cysts M67.80
[2024-03-13 09:18] VITALS: BP 110/70; PULSE 86; O2SAT 98; BMI 37.4
== END 2024-03-13 09:53 | disposition home or self-care (01) ==
PROVIDERS: PCP Internal Medicine; Visit Provider Internal Medicine
DX: K52.9 Noninfective gastroenteritis and colitis, unspecified (principal); E66.9 Obesity, unspecified; E78.00 Pure hypercholesterolemia, unspecified; F32.2 Major depressive disorder, single episode, severe without psychotic features; E03.9 Hypothyroidism, unspecified; M67.80 Other specified disorders of synovium and tendon, unspecified site

== ENCOUNTER → 2024-03-13 08:54 | Outpatient (BNVA) | payer OTHER, SELFPAY | PROVIDERS: PCP Internal Medicine; Visit Provider Internal Medicine | DX: E03.9 Hypothyroidism, unspecified (principal); K52.9 Noninfective gastroenteritis and colitis, unspecified; E66.9 Obesity, unspecified; E78.00 Pure hypercholesterolemia, unspecified; F32.2 Major depressive disorder, single episode, severe without psychotic features | CPT/HCPCS: 99212 ==

== ENCOUNTER 2024-03-13 10:04 | Outpatient (REF) | payer OTHER, SELFPAY ==
[2024-03-13 10:42] LABS: MANUAL DIFF FLAG NO
[2024-03-13 10:49] LABS: Basophils Absolute Auto 0.1 X10*3/uL (0.0-0.2); Basophils Percent Auto 0.4 % (0-2); Eosinophils Absolute Auto 0.6 X10*3/uL (0.0-0.4); Eosinophils Percent Auto 4.8 % (0-4); Hematocrit 39.5 % (37.0-47.0); Hemoglobin 13.4 g/dl (12.0-16.0); Imm Gran Abs Auto 0.04 X10*3/uL (0.00-0.03); Imm Gran Pct Auto 0.3 % (0.0-0.4); Lymphocytes Absolute Auto 4.1 X10*3/uL (1.2-4.9); Lymphocytes Percent Auto 35.4 % (20-40); Mean Corpuscular HGB Conc 33.9 g/dl (31.0-35.0); Mean Corpuscular Hemoglobin 31.8 pg (27.0-33.0); Mean Corpuscular Volume 93.8 fL (80.0-98.0); Mean Platelet Volume 9.8 fL (9.4-12.3); Monocytes Absolute Auto 0.6 X10*3/uL (0.1-1.2); Monocytes Percent Auto 5.3 % (2-11); Neutrophils Absolute Auto 6.3 x10*3/uL (2.0-8.3); Neutrophils Percent Auto 53.8 % (45-73); Platelet Count 305 X10*3/uL (160-400); Red Blood Count 4.21 X10*6/uL (4.20-5.50); Red Cell Distribution Width 12.7 % (11.0-16.0); White Blood Count 11.7 X10*3/uL (4.8-10.8)
[2024-03-13 11:00] LABS: Estimated Average Glucose 103 mg/dL; Hemoglobin A1c % 5.2 % (<6.0)
[2024-03-13 11:48] LABS: Alanine Aminotransferase 30 U/L (0-31); Albumin Level 4.3 g/dL (3.5-5.0); Alkaline Phosphatase 71 U/L (39-117); Anion Gap 9 (12-20); Aspartate Amino Transferase 22 U/L (5-31); Bilirubin Total 0.4 mg/dL (0.0-1.0); Blood Urea Nitrogen 17 mg/dL (9-16); Calcium 9.5 mg/dL (8.4-10.2); Carbon Dioxide 26 mmol/L (22-29); Chloride 110 mmol/L (96-108); Estimated Glomerular Filt Rate > 60; Glucose Random 96 mg/dL (60-115); Potassium 4.2 mmol/L (3.3-5.1); Sodium 141 mmol/L (135-145); Total Protein 7.5 g/dL (6.5-8.0)
[2024-03-13 11:50] LABS: Free T4 (Free Thyroxine) 0.99 ng/dL (0.71-1.85); Thyroid Stimulating Hormone 1.03 uIU/mL (0.32-4.0)
== END 2024-03-13 10:05 | disposition home or self-care (01) ==
LOC: HO.10HDL 10:04
PROVIDERS: Visit Provider Internal Medicine
DX: R73.01 Impaired fasting glucose (principal); E03.9 Hypothyroidism, unspecified
CPT/HCPCS: 36415; 80053; 83036; 84439; 84443; 85025

== ENCOUNTER 2024-09-08 08:58 | Outpatient (REF) | payer OTHER, SELFPAY ==
--- OUTSIDE RECORDS SUMMARY | 2024-09-08 09:25 | XMS_ITS | Patient Health Record ---
Author Organization [facility] Address [address] [place] [id number] Care Team Providers Care Drum Drier Name Role Phone Karma Reyes MD Primary Care Provider Walter Reyna Unavailable [phone] Allergies Allergen (clinical drug ingredient) Drug/Non Drug Allergy documented on EMR Reaction Allergy Type Onset Date Status Penicillin Unknown Drug Allergy Active latex gloves (uncoded) Unknown Allergy Active Reason For Referral No Information Medications Medication SIG (Take, Route, Frequency, Duration) Notes Start Date End Date Status Dicyclomine HCl 10 MG 1-2 Orally QID as needed for abdominal cramps and discomfort 03/30/2021 Active Rowasa 4 GM 1 enema Rectal QHS f or 30 days 03/30/2021 Active Balsalazide Disodium 750 MG 3 Orally TID for 30 day(s) 03/31/2021 Active Docusate Sodium Acti ve Omeprazole Active oxyCODONE HCl 5 MG Oral for 5 Active Vitamin B12 1000 MCG as directed Orally Once a day Active predniSONE 5 MG Oral for 30 Ac tive Vitamin D3 25 MCG (1000 UT) 1 tablet Ora lly Once a day Active Vitamin C Gummie 120 MG 2 tablets orally once a day Active Align Prebiotic-Probiotic Active Levothyroxine Sodium 100 MCG 1 capsule O rally Once a day Active Immunizations Vaccine Route Administration Date Status Comme nts Influenza Unknown 2021 Refused Social History Tobacco Use: Social History Observation Description Date Details (start date - stop date) Former Smoker NA - NA Tobacco Use/Smoking Question Answer Notes Patient is a former smoker When did you stop smoking? since 1993 How long has it been since you last smoked? > 10 years Alcohol Screen Question Answer Notes Did you have a drink contain ing alcohol in the past year? Yes How often did you have a dri nk containing alcohol in the past year? Monthly or less (1 point) How many drinks did you have on a typical day when you were drinking in the past year? 1 or 2 drinks (0 point) How often did you have 6 or more drinks on one occasion in the past year? Never (0 point) Points 1 Interpretation Negative Section Notes: Nonsmoker; no sig alcohol Nonsmoker; no sig alcohol Nonsmoker; no sig alcohol Problems Problem Type SNOMED Code ICD Code Onset Dates Problem Status W/U Status Risk Notes Problem 635324918 Encounter for screening for malignant neoplasm of colon (Z12.11) Active confirmed Problem 303231553 Preprocedural examination (Z01.818) Active confirmed Problem 966420682 Family history o f colon cancer (Z80.0) Active confirmed Problem 665161652 Abnormal CT scan , colon (R93.3) Active confirmed Problem Ulcerative colitis (32498714) Ulcerative colitis (K51.90) Active confirmed Problem 85147385 Diarrhea, unspecified type (R19.7) Active confirmed Problem 068301637 Abdominal pain, left lateral (R10.9) Active confirmed Problem 58596286 Crohn's disease of colon without complication (K50.10) Active confirmed Problem 38932880 Crohn's disease of colon with intestinal obstruction (K50.112) Active confirmed Problem 8413679 Colon stricture (K56.699) Active confirmed Plan Of Treatment Pending Test Test Name Order Date LIVER PROFILE 10/25/2013 AMYLASE 10/25/2013 LIPASE 10/25/2013 CRP 2021 CBC w DIFF 10/25/2013 CBC w DIFF 2021 SED RATE (ESR) 2021 MRI ABD W&WO CONTRAST 03/30/2021 T Spot TB 03/30/2021 Future Test Test Name Order Date COLONOSCOPY 09/21/2017 COLONOSCOPY 2021 Colonoscopy with balloon dilation 2020 Insurance Providers Payer Name Payer Address Payer Phone Subscriber Number Group Number Insured Name Patient Relationship to Insured Coverage Start Date Coverage End Date [facility] [address] [address] [place], [place] [id number] ALEJANDRA NAIDU Self - patient is the insured Medical (General) History Medical History History ICD Code Negative screening colonosco pies 6-10-2010 and 2004 except for some diverticulosis and internal hemorrhoids Hypothyroidism Denies NH,DM,CVA,Lung disease,renal dise ase Choledocholithiasis--3 ERCPs in [address] Ramos Screening colonoscopy in October of 2017 revealed a small tubular adenoma that was removed Colitis--this developed in A ugust of 2020 with a left sided colitis seen on CT scan and negative stool specimens. A very limited colonoscopy in 02/2021 could only get to the very distal sigmoid colon and could not enter the area of inflammation as seen on the CT scan. The rectal mucosa appeared to be basically normal as were the biopsies from this area. She subsequently had an approximately two-week hospitalization try to get her symptoms of predominantly pain and urgency under control with steroids. As of the 04/04 OV she was on 50 mg of prednisone, Balsalazide, and a very limited diet. The plan was to try to initiate a biologic agents as soon as the insurance company would allow it. We were also trying to get her started on mesalamine enemas.She is scheduled for a MRE on 04/10/2021. Negative hepatitis B antigen and negative TB test 02/2021 in preparation to start a biologic agent Surgical History Surgery Date(Month/Year) Cholecystectomy in 2012 after her ERCPs- Dr. Olsen She developed a retroperiton eal abscess in 2015 in relation to some intra-abdominal gallstones from her previous surgery and underwent surgical removal of the gallstones by Dr. Olsen----the abscess was drained percutaneously by IR
== END 2024-09-08 08:59 | disposition home or self-care (01) ==
LOC: HO.MAMMO 08:58
PROVIDERS: PCP Internal Medicine; Visit Provider Internal Medicine
DX: Z12.31 Encounter for screening mammogram for malignant neoplasm of breast (principal)
CPT/HCPCS: 77063; 77067

== ENCOUNTER → 2024-09-08 09:00 | Outpatient (BNV) | payer OTHER, SELFPAY | PROVIDERS: PCP Internal Medicine; Visit Provider Internal Medicine | DX: Z12.31 Encounter for screening mammogram for malignant neoplasm of breast (principal) | CPT/HCPCS: 77063; 77067 ==

== ENCOUNTER 2024-09-18 10:02 | Outpatient (AMB) | payer OTHER, SELFPAY ==
--- NOTE | 2024-09-18 10:14 | MHC.PC.OV ---
Vital Signs 09/18/24 10:21 Height 5 ft Weight 190 lb BMI 37.1 BP 112/66 Blood Pressure Location Lt brachial Position Sitting Pulse 69 Pulse Source Pulse Oximeter Temp 96.9 F Temp Source Temporal Artery Scan Pulse Oximetry (%) 97 Oxygen Delivery Method Room Air Intake Visit Reasons: annual exam Intake Note: Patient is here today for a physical. Surgical Services Coordinator Required: No Accompanied by: Self / Same As Patient Allergies latex Allergy (Unknown, Verified 09/18/24 10:14) Hives penicillin V Allergy (Unknown, Verified 09/18/24 10:14) oral swelling Medication List - Last Reconciled 09/18/24 by Karma Reyes MD cholecalciferol (vitamin D3) 25 mcg PO DAILY levothyroxine 125 mcg orally ; 90 days miscellaneous medical supply 1 ea miscellaneous DAILY sertraline 150 mg (1.5 x 100 mg) PO DAILY 90 days Shower Chair As directed Tobacco use date assessed: 09/18/24 Dental Screening Dental Screen Date: 09/18/24 Did you have a dental visit in the last 12 months?: Yes Did you have a dental problem in the last 6 months where you did not have access to dental care?: No Was dental information given to patient?: Patient has dentist [facility] Medical History (Updated 09/18/24 @ 10:52 by Karma Reyes MD) Annual physical exam Sprain of left knee Well woman exam Screening for osteoporosis Heartburn Hospital discharge follow-up Abnormal colonoscopy (~05/27/21) Retroperitoneal abscess Generalized anxiety disorder Finger strain Osteoarthritis Vitamin D deficiency Hypercholesterolemia Obesity (BMI 30-39.9) Endometrial polyp Cholelithiasis Hypothyroidism Insomnia Surgical History History of colectomy Inflammatory bowel disease History of ERCP Hx of colonoscopy Hx laparoscopic cholecystectomy Family History Mother Colon cancer Lung cancer Father Medical history unknown Paternal Aunt Breast cancer Daughter No problems noted. Daughter No problems noted. Son Substance use disorder Mental health disorder Son No problems noted. Son No problems noted. Son No problems noted. Son No problems noted. Social History (Updated 09/18/24 @ 11:01 by Karma Reyes MD) Housing: House Alcohol intake: current Alcohol intake frequency: holidays/special occasions only Comment: ambulating ad lu[place] in [place]. stopped alcohol 06/2023-drank 1 shot 08/2024 Patient Tobacco Use Status: Former Tobacco user Tobacco use type: Cigarette Years Smoked: quit 1993 smoke weed e-Cigarette/Vaping Use: Never Used Second Hand Smoke Exposure: No Substance Use Type: Marijuana service: No Current occupational status: unemployed Sexual orientation: Straight/Heterosexual Gender identity: Female Cognitive needs: No Hearing needs: No Vision needs: Yes Female Reproductive History Menstrual Age of Menarche: 11 Questionnaire PHQ-9 Over the last 2 weeks, how often have you been bothered by any of the following problems? 1. Little interest or pleasure in doing things: several days 2. Feeling down, depressed, or hopeless: several days 3. Trouble falling or staying asleep, or sleeping too much: several days 4. Feeling tired or having little energy: several days 5. Poor appetite or overeating: several days 6. Feeling bad about yourself - or that you are a failure or have let yourself or your family down: several days 7. Trouble concentrating on things, such as reading the newspaper or watching television: several days 8. Moving or speaking so slowly that other people could have noticed. Or the opposite - being so fidgety or restless that you have been moving around a lot more than usual: several days 9. Thoughts that you would be better off or of hurting yourself in some way: not at all Total score: 8 54686 - PHQ-9 Billing: Yes Source: Developed by Drs. Walter Luis, Cathy Brannon, Bruce Resendez and colleagues, with an educational osman from [employer]. Thrive Questionnaire Date Thrive assessed: 09/18/24 I am a: Patient What is your living situation today?: I have a steady place to live Within the past 12 months, did the food you bought not last and you didn't have the money to get more?: Never true Within the past 12 months, did you worry whether your food would run out before you got money to buy more?: Never true Do you have trouble paying for medicines?: No Do you have trouble getting transportation to medical appointments?: No Do you have trouble paying your heating and electricity bill?: No Do you have trouble taking care of your child, family member or friend?: No Do you have trouble with day-to-day activities such as bathing, preparing meals, shopping, managing finances, etc.?: No Are you currently unemployed and looking for a job?: No Are you interested in more education?: No Please select the resources that you would like help with: None Currently or been in a relationship where the following occur: No concerns reported THRIVE Score: 0 AUDIT C Alcohol Use Questionnaire (AUDIT-C) 1. How often do you have a drink containing alcohol?: Monthly or less 2. How many drinks containing alcohol do you have on a typical day when you are drinking?: 3 or 4 3. How often do you have six or more drinks on one occasion?: Less than monthly Total Score: 3 MIMI-7 AMB Questionnaire MIMI-7 Date MIMI - 7 assessed: 09/18/24 Feeling nervous, anxious, or on edge: 1 = Several days Not being able to stop or control worryin = Several days Worrying too much about different things: 1 = Several days Trouble relaxin = Several days Being so restless that it is hard to sit still: 1 = Several days Becoming easily annoyed or irritable: 1 = Several days Feeling afraid as if something awful might happen: 1 = Several days Total MIMI-7 score (0-4 normal; 5-9 mild; 10-14 moderate; 15-21 severe): 7 Source: Developed by Drs. Walter Luis, Cathy Brannon, Bruce Resendez and colleagues, with an educational osman from [employer]. MIMI-7 Assessment Billing MIMI-7 Assessment Tool: MIMI-7 Assessment 24987 Review of Systems Const Denies poor appetite and Denies weakness Eyes Denies no additional complaints ENT Reports Normal hearing present, Denies dizziness, Denies nasal congestion, Denies tinnitus and Denies sore throat Card Denies chest pain, Denies syncope, Denies rapid heart rate and Denies dyspnea Resp Denies cough and Denies dyspnea GI Denies change in stool character, Reports constipation, Denies diarrhea, Denies nausea and Denies vomiting Denies urinary frequency, Denies difficulty voiding and Denies dysuria Neuro Reports Normal hearing present, Denies confusion, Denies dizziness, Denies syncope and Denies weakness Psych Denies confusion Physical exam (Primary Care) Vital Signs: Last Vital Signs Temp 96.9 F 09/18/24 10:21 Pulse 69 09/18/24 10:21 BP 112/66 09/18/24 10:21 Pulse Ox 97 09/18/24 10:21 Oxygen Delivery Method Room Air 09/18/24 10:21 BMI result Body Mass Index 37.1 Tobacco/Smoking Status: Tobacco use Status Tobacco use date assessed 09/18/24 09/18/24 10:15 Patient Tobacco Use Status Former Tobacco user 09/18/24 11:01 Tobacco use type Cigarette 09/18/24 11:01 e-Cigarette/Vaping Use Never Used 09/18/24 11:01 PHQ-9: PHQ-9 Score PHQ-9: Total score 8 09/18/24 10:52 Thrive Assessment: Date of Thrive Assessment Date Thrive assessed 09/18/24 09/18/24 10:15 Currently or been in a relationship where the following occur: No concerns reported Const General: No confusion Orientation/consciousness: No confusion HENMT Head: Yes normocephalic Ears: external ears normal and TM's normal bilaterally Face and sinus: Yes normal facial exam Mouth: moist mucous membranes Throat: Yes tonsils normal Eyes Conjunctivae: conjunctivae normal Pupils: Equal, round and reactive pupils present and Pupil accommodation reflex normal Direct Ophthalmoscopy: normal light reflex Neck Neck: No lymphadenopathy Thyroid: Thyroid normal Chest Chest palpation & inspection: normal inspection of the chest Resp Effort & Inspection: normal respiratory effort and no audible wheezes Auscultation: clear to auscultation bilaterally, no crackles, no wheezes and lung sounds not diminished Cardio Rate: regular rate Rhythm: regular rhythm Peripheral pulses: radial pulses present and dorsalis pedis present GI Palpation (GI): no masses Auscultation: normal bowel sounds and normoactive bowel sounds Rectal Exam - Female: deferred Skin General skin exam: no rashes or lesions noted Rashes: no rashes Neuro General: No confusion Cranial nerves: Yes Equal, round and reactive pupils present and Yes Normal hearing present Cognition (Neuro): normal cognition Gait exam (Neuro): Normal gait present Motor exam (neuro): 5/5 motor strength present throughout Deep tendon reflexes (DTR's): Right brachioradialis reflex intensity grade: 2+, Left brachioradialis reflex intensity grade: 2+, Right patellar reflex intensity grade: 2+ and Left patellar reflex intensity grade: 2+ Extrem General: No edema Coding Level of Care Code Est Pt Prev Care 40-64y(17362) Diagnoses Annual physical exam Z00.00 Hypothyroid E03.9 Inflammatory bowel disease K52.9 Impaired fasting blood sugar R73.01 Hypercholesterolemia E78.00 Obesity (BMI 30-39.9) E66.9 Moderately severe depression F32.2 Additional Codes MIMI-7 Assessment Billing - MIMI-7 Assessment Tool: MIMI-7 Assessment 56096 ([id number]) PHQ-9 - 63998 - PHQ-9 Billing: Yes ([id number]) Assessment & Plan Assessment & Plan (1) Annual physical exam: Code(s): Z00.00 - Encounter for general adult medical examination without abnormal findings Category: Medical Plan: Patient is advised to eat healthy, keep well hydrated, keep active and have adequate sleep. 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 (5) Hypercholesterolemia: Code(s): E78.00 - Pure hypercholesterolemia, unspecified Category: Medical Plan: Avoid fried foods, chicken skin, eggs, butter margarine, pastries and meat. Be it pork or beef they have a lot of cholesterol July last test (6) Obesity (BMI 30-39.9): Code(s): E66.9 - Obesity, unspecified Category: Medical Plan: Diet and exercise (7) Moderately severe depression: Comment: Earnestine Britton counselling once a week 11/2021 Code(s): F32.2 - Major depressive disorder, single episode, severe without psychotic features Category: Medical Plan: Patient is having counselling asking about buspar Plan History of Present Illness The patient is a 54-year-old female presenting with a comprehensive suite of chronic conditions including obesity, hypercholesterolemia, and impaired glucose tolerance. Her metabolic parameters, such as blood sugar and lipids, were last reviewed in February 2024 and July, where the readings were within satisfactory limits. She undergoes routine follow-up for thyroid function, which remains stable. The patient continues to manage depressive symptoms with sertraline but reports exacerbating anxiety symptoms that affect her sleep and daily functions. Suggestion made to initiate buspirone therapy for anxiety. Additionally, patient reports knee discomfort stemming from a prior meniscus tear, currently managed with a brace, and seeks further assistance for a recurring foot cyst. Positive family cancer history mandates regular vigilance for breast and colon screening, which are maintained up to date. She has ceased smoking but uses marijuana infrequently, noting a desire to eliminate this habit. Nutritionally, she struggles with regimented eating but has experienced weight loss without clear dietary modification. Health Maintenance - Mammogram up to date as of August 2024 - Colonoscopy last performed March 2021, recommended every 5 years - Bone density test performed in 2021 - Routine physical examinations scheduled annually - Blood work last completed in February 2024 indicating normal results for blood count, electrolytes, renal and liver function, blood sugar, and thyroid levels - Current medication for thyroid regulation is levothyroxine 125 mcg - Rosa Maria supplementation includes vitamin D3 and K Social History - Recreational use of marijuana noted, with intent to cease use - Alcohol consumption reduced significantly - Former smoker, maintains cessation - Nutritional intake lacks consistency, reports past issues with food relationships and weight management, currently makes efforts for healthier eating habits - Employs knee brace for support following meniscus tear, limiting moderate activity levels Review of Systems - General: Denies fever, dizziness, or recent illness - Eyes: Last eye exam one year ago, no current complaints - Cardiovascular: Denies chest pain - Respiratory: Denies shortness of breath - Gastrointestinal: No nausea, vomiting, or heartburn; reports good bowel movements without constipation - Genitourinary: Frequent nocturia related to fluid intake timing - Neurological/Psychiatric: Reports dreams affecting sleep, anxiety, irritability, and mood disturbances - Musculoskeletal: Reports knee pain related to a past meniscus tear Physical Exam General: Cooperative, healthy appearing, comfortable, no acute distress and well developed Orientation: Patient oriented x3 Limitations: No limitations Head: Normal to inspection Ears: Hearing grossly normal bilaterally Nose: Normal external nose present Face and sinus: Normal facial exam Eyes: Appearance normal, both eyes and all related structures Neck: Normal visual inspection and Yes full ROM Respiratory: Normal respiratory effort and able to speak in complete sentences. Clear to auscultation bilaterally Cardiovascular: Regular rate and rhythm. Normal S1 and S2 GI: Normal to inspection. Soft to palpation and nontender Skin: No rashes or lesions noted Neuro: Patient oriented x3 Extremities: Normal to inspection, but patient reports knee pain and uses a brace due to a torn meniscus. Also reports a tendon cyst on the foot causing discomfort while walking. Results - Labs: Blood sugar levels, lipid profile, thyroid function all normal as of last tests in July and February - Tests and Diagnostics: Mammogram and colonoscopy up to date as per health maintenance schedule Plan In addressing the patient's chronic health conditions, we continue to monitor her metabolic markers, with lifestyle interventions focused on diet and exercise. Her thyroid management remains consistent with levothyroxine. To improve mental health, sertraline will be augmented with buspirone to manage anxiety. Musculoskeletal issues will continue to be managed with the knee brace and through consultation for her tendon cyst, and she expressed readiness to reduce marijuana use due to associated risks. Continued adherence to her preventive care roadmap is emphasized, ensuring that forthcoming screenings and vaccinations are attended to promptly. Patient was informed and verbally consented to the use of an ambient scribe for clinic note documentation during this visit. Discussion Notes I discussed with the patient the addition of buspirone for persistent anxiety symptoms and provided information on the expected timeline for noticing improvements. We reviewed the potential risks and benefits, aligning them with her current sertraline regimen to avoid adverse interactions. We touched on the importance of modifying her sleep hygiene and dietary habits to further support her mental health and metabolic status. For the musculoskeletal complaints, I highlighted the value of conservative management versus surgical intervention for the knee, and arranged for further assessment of her foot cyst with a new specialist. Her family's cancer history was acknowledged, confirming the need for continued vigilance with regular mammography and colonoscopy. I informed her about the potential health risks of smoking marijuana and advised reducing intake. I instructed her to use a water reminder system to avoid nocturia and planned follow-up care to track her progress with interventions both in terms of mental health and lifestyle adjustments. Patient Instructions - Continue current medications as directed, including levothyroxine and sertraline. - Start buspirone 5 mg twice daily as discussed for anxiety. - Follow dietary recommendations to aid weight management and metabolic health. - Reduce marijuana smoking, consider switching to edibles or ceasing completely for lung protection. - Wear knee brace as needed for comfort and support. - Schedule a consultation with a new campus dean for ongoing foot concerns. - Adhere to health maintenance schedule for screenings and vaccinations. - Consider using a reminder for regular fluid intake during the day to prevent night-time voiding. Orders: Orders Thyroid Stimulating Hormone Today E03.9 - Hypothyroidism, unspecified Complete Blood Count Auto Diff Today E03.9 - Hypothyroidism, unspecified Comprehensive Met. Panel Today E03.9 - Hypothyroidism, unspecified Lipid Panel Today E03.9 - Hypothyroidism, unspecified, E78.00 - Pure hypercholesterolemia, unspecified Free T4 (Free Thyroxine) Today E03.9 - Hypothyroidism, unspecified Vitamin B12 and Folate Today E03.9 - Hypothyroidism, unspecified Vitamin D 25-OH Total Today E03.9 - Hypothyroidism, unspecified Hemoglobin A1c Today E03.9 - Hypothyroidism, unspecified Referrals Podiatry Referral M67.80 - Other specified disorders of synovium and tendon, unspecified site Medications: New buspirone 5 mg PO BID 60 tabs 3RF F32.2 - Major depressive disorder, single episode, severe without psychotic features
[2024-09-18 10:21] VITALS: BP 112/66; PULSE 69; TEMP 36.1; O2SAT 97; BMI 37.1
== END 2024-09-18 11:24 | disposition home or self-care (01) ==
LOC: HO.HMCH 10:03
PROVIDERS: PCP Internal Medicine; Visit Provider Internal Medicine
DX: Z00.00 Encounter for general adult medical examination without abnormal findings (principal); E03.9 Hypothyroidism, unspecified; F32.2 Major depressive disorder, single episode, severe without psychotic features; K52.9 Noninfective gastroenteritis and colitis, unspecified; R73.01 Impaired fasting glucose; E78.00 Pure hypercholesterolemia, unspecified; E66.9 Obesity, unspecified

== ENCOUNTER → 2024-09-18 10:02 | Outpatient (BNVA) | payer OTHER, SELFPAY | PROVIDERS: PCP Internal Medicine; Visit Provider Internal Medicine | DX: Z00.00 Encounter for general adult medical examination without abnormal findings (principal); E03.9 Hypothyroidism, unspecified; K52.9 Noninfective gastroenteritis and colitis, unspecified; R73.01 Impaired fasting glucose; E78.00 Pure hypercholesterolemia, unspecified; F32.2 Major depressive disorder, single episode, severe without psychotic features; E66.9 Obesity, unspecified; Z68.37 Body mass index [BMI] 37.0-37.9, adult | CPT/HCPCS: 96127 ==

== ENCOUNTER 2024-09-18 11:46 | Outpatient (REF) | payer OTHER, SELFPAY ==
[2024-09-18 13:09] LABS: MANUAL DIFF FLAG NO
[2024-09-18 13:15] LABS: Basophils Absolute Auto 0.1 X10*3/uL (0.0-0.2); Basophils Percent Auto 0.9 % (0-2); Eosinophils Absolute Auto 0.6 X10*3/uL (0.0-0.4); Hematocrit 41.4 % (37.0-47.0); Hemoglobin 13.8 g/dl (12.0-16.0); Imm Gran Abs Auto 0.06 X10*3/uL (0.00-0.03); Imm Gran Pct Auto 0.6 % (0.0-0.4); Lymphocytes Absolute Auto 3.2 X10*3/uL (1.2-4.9); Lymphocytes Percent Auto 31.6 % (20-40); Mean Corpuscular HGB Conc 33.3 g/dl (31.0-35.0); Monocytes Absolute Auto 0.5 X10*3/uL (0.1-1.2); Monocytes Percent Auto 5.1 % (2-11); Neutrophils Absolute Auto 5.7 x10*3/uL (2.0-8.3); Neutrophils Percent Auto 55.8 % (45-73); Platelet Count 339 X10*3/uL (160-400); Red Blood Count 4.45 X10*6/uL (4.20-5.50); Red Cell Distribution Width 12.7 % (11.0-16.0); White Blood Count 10.2 X10*3/uL (4.8-10.8)
[2024-09-18 13:27] LABS: Estimated Average Glucose 105 mg/dL; Hemoglobin A1c % 5.3 % (<6.0)
[2024-09-18 13:39] LABS: Alanine Aminotransferase 28 U/L (0-31); Albumin Level 4.3 g/dL (3.5-5.0); Alkaline Phosphatase 70 U/L (39-117); Anion Gap 9 (12-20); Aspartate Amino Transferase 24 U/L (5-31); Bilirubin Total 0.5 mg/dL (0.0-1.0); Blood Urea Nitrogen 13 mg/dL (9-16); Calcium 9.4 mg/dL (8.4-10.2); Carbon Dioxide 26 mmol/L (22-29); Chloride 110 mmol/L (96-108); Cholesterol 181 mg/dL (<200); Estimated Glomerular Filt Rate > 60; Glucose Random 95 mg/dL (60-115); HDL Cholesterol 40 mg/dL (>40); LDL Cholesterol Calculated 109 mg/dL (<100); Potassium 4.3 mmol/L (3.3-5.1); Sodium 141 mmol/L (135-145); Total Protein 7.6 g/dL (6.5-8.0); Triglycerides 163 mg/dL (<150)
[2024-09-18 13:59] LABS: Thyroid Stimulating Hormone 0.46 uIU/mL (0.32-4.0); Vitamin D 25-OH Total 41.5 ng/mL (>30)
[2024-09-18 14:01] LABS: Folate 6.8 ng/mL (> or = 4.0); Vitamin B12 245 pg/mL (200-900)
== END 2024-09-18 11:47 | disposition home or self-care (01) ==
LOC: HO.10HDL 11:46
PROVIDERS: Visit Provider Internal Medicine
DX: E03.9 Hypothyroidism, unspecified (principal); E78.00 Pure hypercholesterolemia, unspecified; Z13.1 Encounter for screening for diabetes mellitus
CPT/HCPCS: 36415; 80053; 80061; 82306; 82607; 82746; 83036; 84439; 84443; 85025

== ENCOUNTER 2024-11-23 10:13 | Outpatient (AMB) | payer OTHER, SELFPAY ==
[2024-11-23 10:29] VITALS: BP 112/76; BMI 36.7
--- NOTE | 2024-11-23 10:29 | MHC.OFFVIS ---
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 No complaints. Last Pap/HPV was negative in 09/17 Last Mammogram was BI-RADS 1 in 09/19 Last Colonoscopy was in 04/17 [facility] Medical History Annual physical exam Sprain of left knee Well woman exam Screening for osteoporosis Heartburn Hospital discharge follow-up Abnormal colonoscopy (~05/27/21) Retroperitoneal abscess Generalized anxiety disorder Finger strain Osteoarthritis Vitamin D deficiency Hypercholesterolemia Obesity (BMI 30-39.9) Endometrial polyp Cholelithiasis Hypothyroidism Insomnia Surgical History History of colectomy Inflammatory bowel disease History of ERCP Hx of colonoscopy Hx laparoscopic cholecystectomy Family History Mother Colon cancer Lung cancer Father Medical history unknown Paternal Aunt Breast cancer Daughter No problems noted. Daughter No problems noted. Son Substance use disorder Mental health disorder Son No problems noted. Son No problems noted. Son No problems noted. Son No problems noted. Social History Housing: House Alcohol intake: current Alcohol intake frequency: holidays/special occasions only Comment: ambulating ad luana in [place]. stopped alcohol 06/2023-drank 1 shot 08/2024 Patient Tobacco Use Status: Former Tobacco user Tobacco use type: Cigarette Years Smoked: quit 1993 smoke weed e-Cigarette/Vaping Use: Never Used Second Hand Smoke Exposure: No Substance Use Type: Marijuana service: No Current occupational status: unemployed Sexual orientation: Straight/Heterosexual Gender identity: Female Cognitive needs: No Hearing needs: No Vision needs: Yes Female Reproductive History Menstrual Age of Menarche: 11 Date of last pap smear: 09/08/22 Date of Mammogram: 09/08/24 Review of Systems Const All systems reviewed & are unremarkable except as noted in HPI and below Card Reports as per HPI Resp Reports as per HPI GI Reports as per HPI and Reports no additional complaints Reports as per HPI Physical Exam Vital Signs: Last Vital Signs BP 112/76 11/23/24 10:29 BMI result Body Mass Index 36.7 Const General: cooperative, healthy appearing and comfortable Chest Chest palpation & inspection: normal inspection of the chest and normal palpation of entire chest wall Breast/axilla inspection: normal inspection of the breasts and normal inspection of the axillae Breast/axilla palpation: normal palpation of the breasts, normal palpation of the axillae and no axillary lymphadenopathy Resp Effort & Inspection: normal respiratory effort Auscultation: clear to auscultation bilaterally Percussion: percussion normal Cardio Palpation: normal PMI Rate: regular rate Rhythm: regular rhythm Heart sounds: no murmurs and no rubs Peripheral pulses: Peripheral pulses 2+ throughout GI Inspection: Yes normal to inspection Palpation (GI): Soft to palpation, nontender, no guarding, not rigid and No hepatosplenomegaly present Percussion: Yes normal to percussion Auscultation: normal bowel sounds Rectal Exam - Female: deferred General: Yes bladder normal to palpation External Female Exam: No lesion Speculum Exam - Vagina: normal appearance of the vagina, normal palpation, normal vaginal discharge and not erythematous Speculum Exam - Cervix: normal appearance of the cervix and normal palpation Bimanual exam- vagina & uterus: normal bimanual exam, normal palpation, uterine size normal, bladder normal to palpation, consistency normal and normal palpation Bimanual Exam- Adnexa, other: normal adnexae, no masses and no tenderness Assessment & Plan Assessment & Plan (1) Well woman exam: Code(s): Z01.419 - Encounter for gynecological examination (general) (routine) without abnormal findings Category: Medical Plan: Co testing not indicated this year. Counseled the patient about the recommended dietary allowance of 1200 mg of Calcium & 600 IU of vitamin D. Instructions given the patient to schedule a screening Mammogram in 09/20. The patient was instructed to perform monthly self-breast exams and schedule annual exam in a year. All questions answered and the patient verbalized understanding. Coding Level of Care Code Est Pt Prev Care 40-64y(73772) Diagnoses Well woman exam Z01.419
--- OUTSIDE RECORDS SUMMARY | 2024-11-23 10:33 | XMS_ITS | Patient Health Record ---
Author Organization [facility] Address [address] [place] [id number] Care Team Providers Care Industrial Rehabilitation Consultant Name Role Phone Karma Reyes MD Primary Care Provider Walter Reyna Unavailable [phone] Allergies Allergen (clinical drug ingredient) Drug/Non Drug [...] Problem Status W/U Status Risk Notes Problem 086064104 Encounter for screening for malignant neoplasm of colon (Z12.11) Active confirmed Problem 448610173 Preprocedural examination (Z01.818) Active confirmed Problem 186680150 Family history o f colon cancer (Z80.0) Active confirmed Problem 207372866 Abnormal CT scan , colon (R93.3) Active confirmed Problem Ulcerative colit is (K51.90) Active confirmed Problem 99066137 Diarrhea, unspecified type (R19.7) Active confirmed Problem 273469059 Abdominal pain, left lateral (R10.9) Active confirmed Problem 26421418 Crohn's disease of colon without complication (K50.10) Active confirmed Problem 78241481 Crohn's disease of colon with intestinal obstruction (K50.112) Active confirmed Problem 5432129 Colon stricture (K56.699) Active confirmed Plan Of Treatment Pending Test Test Name Order Date LIVER PROFILE 10/25/2013 AMYLASE 10/25/2013 LIPASE 10/25/2013 CRP 2021 CBC w DIFF 2021 CBC w DIFF 10/25/2013 SED RATE (ESR) 2021 MRI ABD W&WO CONTRAST 03/30/2021 T Spot TB 03/30/2021 Future Test Test Name Order Date COLONOSCOPY 09/21/2017 COLONOSCOPY 2021 Colonoscopy with balloon dilation 2020 Insurance Providers Payer Name Payer Address Payer Phone Subscriber Number Group Number Insured Name Patient Relationship to Insured Coverage Start Date Coverage End Date [facility] [address] [address] [place], [place] [id number] ALEJANDRA NAIDU Self - patient is the insured Medical (General) History Medical History History ICD Code Negative screening colonosco pies 6-10-2010 and 2004 except for some diverticulosis and internal hemorrhoids Hypothyroidism Denies KS,DM,CVA,Lung disease,renal dise ase Choledocholithiasis--3 ERCPs in [address] Ramos Screening colonoscopy in October [...]
== END 2024-11-23 10:48 | disposition home or self-care (01) ==
LOC: HO.HWS 10:13
PROVIDERS: PCP Internal Medicine; Visit Provider Obstetrics & Gynecology
DX: Z01.419 Encounter for gynecological examination (general) (routine) without abnormal findings (principal)
CPT/HCPCS: 99396; 99459

== ENCOUNTER 2024-11-23 11:28 | Outpatient (AMB) | payer OTHER, SELFPAY ==
--- NOTE | 2024-11-23 11:47 | AM.OFFWIN_ITS ---
Intake Vital Signs 11/23/24 11:48 Height 5 ft Weight 188 lb BMI 36.7 BP 110/70 Blood Pressure Location Rt brachial Position Sitting Pulse 70 Pulse Source Pulse Oximeter Temp 98.7 F Temp Source Oral Pulse Oximetry (%) 98 Oxygen Delivery Method Room Air Intake Visit Reasons: EP-sinus, sob, cough Intake Note: Pt came in c/o cough, chest congestion, headache x 1 month. Shortness of breath with exerction x 11/2 week. Pt stated bilateral lower extremity swelling at the end of the day. Pt a/o x 3 no sob/jagruti noted. Speaks in full sentences. Ambulate (I) gait steady. Vs 123/76 (left) - 76-98% on room air. Pt lungs - bilateral upper lower lobes- exp. wheezing, bilateral lower lobes - slight exp. wheezing. Heart sounds - regular. Provider GIGI (Mei Reilly ) aware. Pt roomed to 12. Patient Tobacco Use Status: Former Tobacco user Allergies latex Allergy (Unknown, Verified 11/23/24 11:48) Hives penicillin V Allergy (Unknown, Verified 11/23/24 11:48) oral swelling Do you need a note to return to daycare/school/sports/work: No HPI HPI Comments History of Present Illness Details History - The patient is a 54-year-old female pr esenting with persistent cough, wheezing and nasal congestion - Takes a daily mgwn-zws-wohxqyi antihis tamine. - Symptoms have persisted for over a mon , with noted progression and exertional shortness of breath and wheezing. - History of recurrent ear infections an d childhood bronchitis, with no current asthma or COPD. - Previous smoker, quit in 1993. Denies hx of asthma or COPD. - Symptoms worsen when lying down, with reported head congestion but no significant ear or sinus pain or fevers. Physical Exam General: Cooperative, healthy appearing, comfortable and no acute distress Orientation/consciousness: Patient oriented x3 Limitations: No limitations Head: Normal to inspection Ears: Hearing grossly normal bilaterally, external ears normal, and TM's normal bilaterally, but noted scar tissue on left Nose: Normal external nose present, Normal nares present, and No nasal discharge present Face and sinus: Normal facial exam, but patient reports head congestion and sinus pressure, Yes sinuses nontender Mouth: Normal oral and palatal mucosa present, moist mucous membranes Throat: Yes tonsils normal, Yes uvula midline. Posterior oropharynx erythema, and noted cobblestoning Eyes: Appearance normal, both eyes and all related structures Neck: Normal visual inspection Respiratory: expiratory wheezes. Normal respiratory effort, able to speak in complete sentences, no respiratory distress, not tachypneic, no tripod positioning, no use of accessory muscles Cardiovascular: Regular rate and rhythm. Normal S1 and S2 Skin: No rashes or lesions noted Neuro: Patient oriented x3 Extremities: Normal to inspection and Yes no clubbing, cyanosis or edema PFSH Medical History Annual physical exam Sprain of left knee Well woman exam Screening for osteoporosis Heartburn Hospital discharge follow-up Abnormal colonoscopy (~05/27/21) Retroperitoneal abscess Generalized anxiety disorder Finger strain Osteoarthritis Vitamin D deficiency Hypercholesterolemia Obesity (BMI 30-39.9) Endometrial polyp Cholelithiasis Hypothyroidism Insomnia Surgical History History of colectomy Inflammatory bowel disease History of ERCP Hx of colonoscopy Hx laparoscopic cholecystectomy Family History Mother Colon cancer Lung cancer Father Medical history unknown Paternal Aunt Breast cancer Daughter No problems noted. Daughter No problems noted. Son Substance use disorder Mental health disorder Son No problems noted. Son No problems noted. Son No problems noted. Son No problems noted. Social History Housing: House Alcohol intake: current Alcohol intake frequency: holidays/special occasions only Comment: ambulating ad luana in [place]. stopped alcohol 06/2023-drank 1 shot 08/2024 Patient Tobacco Use Status: Former Tobacco user Tobacco use type: Cigarette Years Smoked: quit 1993 smokes weed e-Cigarette/Vaping Use: Never Used Second Hand Smoke Exposure: No Substance Use Type: Marijuana service: No Current occupational status: unemployed Sexual orientation: Straight/Heterosexual Gender identity: Female Cognitive needs: No Hearing needs: No Vision needs: Yes Female Reproductive History Menstrual Age of Menarche: 11 Review of Systems Const All systems reviewed & are unremarkable except as noted in HPI and below Physical Exam Vital Signs: Last Vital Signs Temp 98.7 F 11/23/24 11:48 Pulse 70 11/23/24 11:48 BP 110/70 11/23/24 11:48 Pulse Ox 98 11/23/24 11:48 Oxygen Delivery Method Room Air 11/23/24 11:48 BMI result Body Mass Index 36.7 Assessment & Plan Assessment & Plan (1) CAP (community acquired pneumonia): Code(s): J18.9 - Pneumonia, unspecified organism Qualifiers: Laterality: unspecified laterality Qualified Code(s): J18.9 - Pneumoni a, unspecified organism Plan: VSS, pt well appearing and PE remarkable for exp wheezes. Clinical dx CAP. The patient will commence treatment with cefpodoxime due to an allergy to Augmentin, alongside a course of prednisone to alleviate wheezing and respiratory discomfort. Administered instructions on the proper use of intranasal corticosteroids were given to enhance sinus relief. The patient will take cefpodoxime every 12 hours for seven days and prednisone once daily in the morning for five days to reduce inflammation and improve respiratory function. Immediate initiation of prednisone was recommended for prompt symptom alleviation. The patient was advised on potential side effects of prednisone, including increased appetite and mood changes, and instructed to take it in the morning to minimize sleep disruption. Patient was informed and verbally consented to the use of an ambient scribe for clinic note documentation during this visit Medications: New prednisone 40 mg (2 x 20 mg) PO QAM 10 tabs 0RF cefpodoxime must administer with a meal/food 200 mg PO Q12H 14 tabs 0RF Coding Level of Care Code Est Pt Level 3 (12478) Diagnoses Community acquired pneumonia, unspecified laterality J18.9 Laterality: unspecified laterality
[2024-11-23 11:48] VITALS: BP 110/70; PULSE 70; TEMP 37.1; O2SAT 98; BMI 36.7
== END 2024-11-23 12:31 | disposition home or self-care (01) ==
PROVIDERS: PCP Internal Medicine; Visit Provider Physician Assistant
DX: J18.9 Pneumonia, unspecified organism (principal)

== ENCOUNTER 2024-12-20 09:25 | Outpatient (AMB) | payer OTHER, SELFPAY ==
[2024-12-20 09:28] VITALS: BP 116/72; PULSE 81; O2SAT 96; BMI 36.5
--- NOTE | 2024-12-20 09:28 | MHC.PC.OV ---
Vital Signs 12/20/24 09:28 Height 5 ft Weight 187 lb BMI 36.5 BP 116/72 Blood Pressure Location Lt brachial Position Sitting Pulse 81 Pulse Source Pulse Oximeter Pulse Oximetry (%) 96 Oxygen Delivery Method Room Air Intake Visit Reasons: MIMI, Depression Game Technician Required: No Accompanied by: Self / Same As Patient Allergies latex Allergy (Unknown, Verified 12/20/24 09:29) Hives penicillin V Allergy (Unknown, Verified 12/20/24 09:29) oral swelling Medication List - Last Reconciled 12/20/24 by Karma Reyes MD cholecalciferol (vitamin D3) 25 mcg PO DAILY levothyroxine 125 mcg orally ; 90 days miscellaneous medical supply 1 ea miscellaneous DAILY sertraline 150 mg (1.5 x 100 mg) PO DAILY 90 days Shower Chair As directed Tobacco use date assessed: 12/20/24 Dental Screening Dental Screen Date: 12/20/24 COUNTS INCLUDE 234 BEDS AT THE [facility] Medical History Annual physical exam Sprain of left knee Well woman exam Screening for osteoporosis Heartburn Hospital discharge follow-up Abnormal colonoscopy (~05/27/21) Retroperitoneal abscess Generalized anxiety disorder Finger strain Osteoarthritis Vitamin D deficiency Hypercholesterolemia Obesity (BMI 30-39.9) Endometrial polyp Cholelithiasis Hypothyroidism Insomnia Surgical History History of colectomy Inflammatory bowel disease History of ERCP Hx of colonoscopy Hx laparoscopic cholecystectomy Family History Mother Colon cancer Lung cancer Father Medical history unknown Paternal Aunt Breast cancer Daughter No problems noted. Daughter No problems noted. Son Substance use disorder Mental health disorder Son No problems noted. Son No problems noted. Son No problems noted. Son No problems noted. Social History Housing: House Alcohol intake: current Alcohol intake frequency: holidays/special occasions only Comment: ambulating ad [place] in [place]. stopped alcohol 06/2023-drank 1 shot 08/2024 Patient Tobacco Use Status: Former Tobacco user Tobacco use type: Cigarette Years Smoked: quit 1993 smoke weed e-Cigarette/Vaping Use: Never Used Second Hand Smoke Exposure: No Substance Use Type: Marijuana service: No Current occupational status: unemployed Sexual orientation: Straight/Heterosexual Gender identity: Female Cognitive needs: No Hearing needs: No Vision needs: Yes Female Reproductive History Menstrual Age of Menarche: 11 Questionnaire PHQ-9 Over the last 2 weeks, how often have you been bothered by any of the following problems? 1. Little interest or pleasure in doing things: several days 2. Feeling down, depressed, or hopeless: several days 3. Trouble falling or staying asleep, or sleeping too much: several days 4. Feeling tired or having little energy: several days 5. Poor appetite or overeating: several days 6. Feeling bad about yourself - or that you are a failure or have let yourself or your family down: several days 7. Trouble concentrating on things, such as reading the newspaper or watching television: several days 8. Moving or speaking so slowly that other people could have noticed. Or the opposite - being so fidgety or restless that you have been moving around a lot more than usual: several days 9. Thoughts that you would be better off or of hurting yourself in some way: not at all Total score: 8 92845 - PHQ-9 Billing: Yes Source: Developed by Drs. Walter Luis, Cathy Brannon, Bruce Resendez and colleagues, with an educational osman from [employer]. Thrive Questionnaire Date Thrive assessed: 12/20/24 I am a: Patient What is your living situation today?: I have a steady place to live Within the past 12 months, did the food you bought not last and you didn't have the money to get more?: Never true Within the past 12 months, did you worry whether your food would run out before you got money to buy more?: Never true Do you have trouble paying for medicines?: No Do you have trouble getting transportation to medical appointments?: No Do you have trouble paying your heating and electricity bill?: No Do you have trouble taking care of your child, family member or friend?: No Do you have trouble with day-to-day activities such as bathing, preparing meals, shopping, managing finances, etc.?: No Are you currently unemployed and looking for a job?: No Are you interested in more education?: No Please select the resources that you would like help with: None Currently or been in a relationship where the following occur: No concerns reported THRIVE Score: 0 AUDIT C Alcohol Use Questionnaire (AUDIT-C) 1. How often do you have a drink containing alcohol?: Monthly or less 2. How many drinks containing alcohol do you have on a typical day when you are drinking?: 3 or 4 3. How often do you have six or more drinks on one occasion?: Less than monthly Total Score: 3 MIMI-7 AMB Questionnaire MIMI-7 Date MIMI - 7 assessed: 12/20/24 Feeling nervous, anxious, or on edge: 1 = Several days Not being able to stop or control worryin = Several days Worrying too much about different things: 1 = Several days Trouble relaxin = Several days Being so restless that it is hard to sit still: 1 = Several days Becoming easily annoyed or irritable: 1 = Several days Feeling afraid as if something awful might happen: 1 = Several days Total MIMI-7 score (0-4 normal; 5-9 mild; 10-14 moderate; 15-21 severe): 7 Source: Developed by Drs. Walter Luis, Cathy Brannon, Bruce Resendez and colleagues, with an educational osman from [employer]. MIMI-7 Assessment Billing MIMI-7 Assessment Tool: MIMI-7 Assessment 34263 Physical exam (Primary Care) Vital Signs: Last Vital Signs Pulse 81 12/20/24 09:28 BP 116/72 12/20/24 09:28 Pulse Ox 96 12/20/24 09:28 Oxygen Delivery Method Room Air 12/20/24 09:28 BMI result Body Mass Index 36.5 Tobacco/Smoking Status: Tobacco use Status Tobacco use date assessed 12/20/24 12/20/24 09:31 Patient Tobacco Use Status Former Tobacco user 12/20/24 09:31 Tobacco use type Cigarette 12/20/24 09:31 e-Cigarette/Vaping Use Never Used 12/20/24 09:31 PHQ-9: PHQ-9 Score PHQ-9: Total score 8 12/20/24 09:53 Thrive Assessment: Date of Thrive Assessment Date Thrive assessed 12/20/24 12/20/24 09:31 Currently or been in a relationship where the following occur: No concerns reported Const General: alert; No acute distress Eyes Conjunctivae: conjunctivae normal Resp Auscultation: clear to auscultation bilaterally Cardio Rate: regular rate Rhythm: regular rhythm GI Inspection: Yes normal to inspection Extrem General: Yes normal to inspection and No edema Coding Level of Care Code Est Pt Level 4 (24141) Diagnoses Community acquired pneumonia, unspecified laterality J18.9 Laterality: unspecified laterality Inflammatory bowel disease K52.9 Vitamin B 12 deficiency E53.8 Obesity (BMI 30-39.9) E66.9 Impaired fasting blood sugar R73.01 Hypothyroid E03.9 Moderately severe depression F32.2 Hypercholesterolemia E78.00 Additional Codes MIMI-7 Assessment Billing - MIMI-7 Assessment Tool: MIMI-7 Assessment 20441 ([id number]) PHQ-9 - 42570 - PHQ-9 Billing: Yes ([id number]) Assessment & Plan Assessment & Plan (1) CAP (community acquired pneumonia): Code(s): J18.9 - Pneumonia, unspecified organism Category: Medical Qualifiers: Laterality: unspecified laterality Qualified Code(s): J18.9 - Pneumonia, unspecified organism Plan: Patient went to the Urgent Center and was treated. 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 Exploratory laparotomy alter low anterior resection with short Shantanu's stump, mobilization of splenic flexure omental flap resection and closure of ileostomy Code(s): K52.9 - Noninfective gastroenteritis and colitis, unspecified Category: Surgical Plan: Stable (3) Vitamin B 12 deficiency: Code(s): E53.8 - Deficiency of other specified B group vitamins Category: Medical Plan: Discussed about vitamin B12 1000 mcg once a day (4) Obesity (BMI 30-39.9): Code(s): E66.9 - Obesity, unspecified Category: Medical Plan: Diet and exercise (5) Impaired fasting blood sugar: Code(s): R73.01 - Impaired fasting glucose Category: Medical Plan: Decrease the amount of carbohydrate intake, pasta, bread, rice and potatoes are all sugar and that is aside from all the sweet stuff, remember that fruits are good but they are Sweet also. (6) Hypothyroid: Code(s): E03.9 - Hypothyroidism, unspecified Category: Medical Plan: Continue with thyroid medication (7) Moderately severe depression: Comment: Earnestine Britton counselling once a week 11/2021 Code(s): F32.2 - Major depressive disorder, single episode, severe without psychotic features Category: Medical Plan: Continue with counseling and therapy on sertraline 150 mg once a day (8) Hypercholesterolemia: Code(s): E78.00 - Pure hypercholesterolemia, unspecified Category: Medical Plan: Avoid fried foods, chicken skin, eggs, butter margarine, pastries and meat. Be it pork or beef they have a lot of cholesterol LDL goal of less than 130 and triglyceride of less than 150 Plan History of Present Illness The patient is a 54-year-old female presenting for a follow-up visit. She has a history of obesity, hypercholesterolemia, impaired glucose tolerance, and colitis. The patient also has a history of cholelithiasis and moderately severe depression. She has been diagnosed with inflammatory bowel disease and Attention Deficit Hyperactivity Disorder (ADHD). Her osteopenia was noted in August 2021, and she has a history of pneumonia treated with cefpodoxime. The patient reports low vitamin B12 levels and seasonal allergies. She follows up with podiatry for osteoarthritis and had a ganglion cyst on the left foot aspirated. Her blood work from September 18 showed normal blood count, electrolytes, renal function, and blood sugar. Liver function was normal, with LDL cholesterol at 109 mg/dL and triglycerides at 163 mg/dL. Thyroid function was normal, but vitamin B12 was low at 245 pg/mL. Health Maintenance - Mammogram is up to date - Colonoscopy performed in March 2021 - Discussed vitamin B12 supplementation of 1000 mcg daily - Advised on diet and exercise for cholesterol management - Counseling and therapy for depression, on sertraline 150 mg daily - Allergy management with Claritin or Zyrtec as needed Social History - Reports consuming milk, cheese, and eggs regularly - Experiences lactose intolerance symptoms - Engages in dietary management for cholesterol, including increased fish intake - Reports seasonal allergies, managed with aezk-dod-mljlljl medications Review of Systems - Gastrointestinal: Reports lactose intolerance symptoms, denies diarrhea from milk - Musculoskeletal: Reports osteoarthritis, denies persistent pain - Respiratory: Reports seasonal allergies, denies chronic cough Physical Exam Results - Labs: Normal blood count, electrolytes, renal function, and blood sugar as of September 18 - Labs: LDL cholesterol at 109 mg/dL, triglycerides at 163 mg/dL - Labs: Low vitamin B12 at 245 pg/mL - Labs: Normal thyroid function Plan The patient will continue with her current management plan for hypercholesterolemia, aiming for an LDL goal of less than 130 mg/dL and triglycerides less than 150 mg/dL through dietary modifications and exercise. She is advised to take vitamin supplements at 1000 mcg daily to address her deficiency. For depression, the patient will continue with counseling and therapy while on sertraline 150 mg daily. The patient is advised to manage her seasonal allergies with poad-tcs-jxeewsr medications such as Claritin or Zyrtec as needed. She will follow up with podiatry for her osteoarthritis and ganglion cyst management. Preventative care measures include maintaining up-to-date mammograms and considering a shingles vaccine, which is available at pharmacies. Patient was informed and verbally consented to the use of an ambient scribe for clinic note documentation during this visit. Discussion Notes During the visit, I discussed the importance of managing hypercholesterolemia through diet and exercise, aiming for specific LDL and triglyceride goals. We reviewed the need for vitamin B12 supplementation and continued management of depression with sertraline and therapy. I advised the patient on managing seasonal allergies with kioj-gzt-cdvhjrf medications and discussed the option of a shingles vaccine, which is available at pharmacies. Patient Instructions - Continue dietary modifications and exercise to manage cholesterol levels. - Take vitamin B12 supplements at 1000 mcg daily. - Continue counseling and therapy for depression, and take sertraline 150 mg daily. - Use Claritin or Zyrtec as needed for seasonal allergies. - Follow up with podiatry for osteoarthritis and ganglion cyst management. - Maintain up-to-date mammograms and consider a shingles vaccine. Orders: Orders Complete Blood Count Auto Diff 6 Months E78.00 - Pure hypercholesterolemia, unspecified Free T4 (Free Thyroxine) 6 Months E78.00 - Pure hypercholesterolemia, unspecified Hemoglobin A1c 6 Months E78.00 - Pure hypercholesterolemia, unspecified Vitamin B12 and Folate 6 Months E78.00 - Pure hypercholesterolemia, unspecified Comprehensive Met. Panel 6 Months E78.00 - Pure hypercholesterolemia, unspecified Lipid Panel 6 Months E78.00 - Pure hypercholesterolemia, unspecified Thyroid Stimulating Hormone 6 Months E78.00 - Pure hypercholesterolemia, unspecified Vitamin D 25-OH Total 6 Months E78.00 - Pure hypercholesterolemia, unspecified UA CC w/rflx Micro + Cult 6 Months E78.00 - Pure hypercholesterolemia, unspecified, R30.0 - Dysuria Uric Acid 6 Months E78.00 - Pure hypercholesterolemia, unspecified Medications: Refilled levothyroxine 125 mcg orally ; 90 days 90 tabs 0RF E03.9 - Hypothyroidism, unspecified levothyroxine 125 mcg orally ; 90 tabs 3RF 90 days E03.9 - Hypothyroidism, unspecified
--- OUTSIDE RECORDS SUMMARY | 2024-12-20 10:24 | XMS_ITS | Patient Health Record ---
[facility] [place] Address [address] [place] [address] Care Team Providers Care Functional Skills Tutor Name Role Phone Karma Reyes Primary Care Provider Celeste Baker Unavailable [phone] Allergies Allergen (clinical drug ingredient) Drug/Non Drug Allergy documented on EMR Reaction Allergy Type Onset Date Status adhesive tape (uncoded) rash Allergy Active Latex latex (uncoded) rash Allergy Acti ve Penicillin anaphylaxis Drug Allergy Acti ve Reason For Referral Diagnosis 1 Pain in unspecified foot (M79.673) Referring Provider First Name Karma Referring Provider Last Name [facility] Referred Provider Celeste Casey Referred Address [address] [facility],[place],[address], Referred Provider Specialty Podiatry Referral Priority Routine Medications Medication SIG (Take, Route, Frequency, Duration) Notes Start Date End Date Status Sertraline HCl 150 MG 1 capsule Orally O nce a day Active Levothyroxine Sodium 125 MCG 1 tablet in the morning on an empty stomach Orally Once a day Active Immunizations Vaccine Route Administration Date Status Comme nts Influenza Unknown 03/28/2024 Administered Social History Tobacco Use: Social History Observation Description Date Details (start date - stop date) Never Smoker NA - NA Tobacco use other than smoking: Question Answer Notes Are you an other tobacco user? No Tobacco Control (Standard) Question Answer Notes Tobacco use: Nonsmoker Additional Findings: Tobacco non-user Current no nsmoker AUDIT-C (Standard) Question Answer Notes Did you have a drink containing alcohol in the p ast year? No Points 0 Interpretation Negative Problems Problem Type SNOMED Code ICD Code Onset Dates Problem Status W/U Status Risk Notes Problem Osteoarthritis of midtarsal joint of left foot ([id number] ) Osteoarthritis of midtarsal joint of left foot (M19.072) Active confirmed Vital Signs Blood pressure diastolic 65 mm Hg 12/13/2024 Height 5ft 1inch in 12/13/2024 Blood pressure systolic 128 mm Hg 12/13/2024 Weight 185 lbs 12/13/2024 BMI 34.95 kg/m2 12/13/2024 Procedures Procedure Date Ordered Date Performed Result Body Sit e - Ganglion Cyst Injection/Aspiration 12/13/2024 N/A Encounters Encounter Location Date Provider Diagnosis [facility] [address] [place] [address] 12/13/2024 Celeste Casey Ganglion of foot, left M67.472 ; Osteoarthritis of midtarsal joint of left foot M19.072 ; Pain in left foot M79.672 ; Pain in left ankle and joints of left foot M25.572 and Bursitis of left foot M77.52 Assessments Encounter Date Diagnosis (ICD Code) Assessment Notes Treatment Notes Treatment Clinical Notes Section Notes 12/13/2024 Ganglion of foot, left (ICD-10 - M67.472) 12/13/2024 Osteoarthritis of midtarsal joint of left foot (ICD-10 - M19.072) 12/13/2024 Pain in left foot (ICD-10 - M79.672) 12/13/2024 Pain in left ankle and joints of left foot (ICD-10 - M25.572) 12/13/2024 Bursitis of left foot (ICD-10 - M77.52) Plan Of Treatment Pending Test Test Name Order Date X ray : Foot, left 3V 12/13/2024- Ganglion Cyst Injection/Aspiratio n 12/13/2024 Insurance Providers Payer Name Payer Address Payer Phone Subscriber Number Group Number Insured Name Patient Relationship to Insured Coverage Start Date [facility]age End Date [facility] [address] [place] [phone] [id number] Walter Sheriff Spouse - patient is the spouse of the insured Medical (General) History Medical History History ICD Code Anxiety Back,Hip,and Knee pain Gall bladder problems Depression thyroid Arthritis Broken bones covid-19 sinusitis Surgical History Surgery Date(Month/Year) Gall bladder 2012 hysterectomy 05/18 colonoscopy 06/17
== END 2024-12-20 10:11 | disposition home or self-care (01) ==
LOC: HO.HMCH 09:26
PROVIDERS: PCP Internal Medicine; Visit Provider Internal Medicine
DX: J18.9 Pneumonia, unspecified organism (principal); F32.2 Major depressive disorder, single episode, severe without psychotic features; E66.9 Obesity, unspecified; Z68.36 Body mass index [BMI] 36.0-36.9, adult; K52.9 Noninfective gastroenteritis and colitis, unspecified; E53.8 Deficiency of other specified B group vitamins; R73.01 Impaired fasting glucose; E03.9 Hypothyroidism, unspecified; E78.00 Pure hypercholesterolemia, unspecified

== ENCOUNTER → 2024-12-20 09:25 | Outpatient (BNVA) | payer OTHER, SELFPAY | PROVIDERS: PCP Internal Medicine; Visit Provider Internal Medicine | DX: F41.1 Generalized anxiety disorder (principal); J18.9 Pneumonia, unspecified organism; K52.9 Noninfective gastroenteritis and colitis, unspecified; E53.8 Deficiency of other specified B group vitamins; E66.9 Obesity, unspecified; R73.01 Impaired fasting glucose; E03.9 Hypothyroidism, unspecified; F32.2 Major depressive disorder, single episode, severe without psychotic features; E78.00 Pure hypercholesterolemia, unspecified; F90.9 Attention-deficit hyperactivity disorder, unspecified type | CPT/HCPCS: 96127 ==